=== PATIENT | female | born 1940 | race Caucasian/White ===

== ENCOUNTER → 2017-08-12 | Outpatient (CLI) | payer MEDICARE, OTHER ==
[~2017-08-12] MED LIST: ACET325 PO; ACYC400 PO; ALBU2.5V5 NEB; ALBU3IS INH; ALLO100 PO; ALLO300 PO; AMLO10 PO; ASPI325 PO; ATOR20 PO; ATOR40TA PO; Antivert25 MG PO; BISA10S PR; BUDE.25 NEB; CEPH500 PO; CIPR500 PO; CLON.2 PO; CVS DISPOSABLE399 ML PR; CYCL10 PO; DESITIN CLEAR O99 GM TP; DIAZ5 PO; DOCU100 PO; DULERA 200 MCG/13 GM INH; ENOX40I SC; ESTRTP VAG; Enema133 M1 RC; FERR325 PO; FURO20 PO; FURO40 PO; GABA100 PO; GABA300 PO; GLYCAS PR; HYDACE5 PO; HYDMOR2 PO; IBUP800 PO; IPRAIS NEB; Klor-Con 1010 MEQ PO; LEVFLO500 PO; LEVSOD125 PO; LEVSOD150 PO; LEVSOD175 PO; LISI20 PO; LORA.5 PO; METO10 PO; METO25ER PO; MIRALAX17 GM PO; MORP15ER PO; Milk Of Ma400 MG/5 M PO; Milk Of Ma800 MG/5 M PO; Mucinex1200 MG PO; Neurontin600 MG PO; ONDA4ODT MM; OXYACE5T PO; POTA8 PO; POTCHL20ER PO; PRAV20 PO; PRED10 PO; Pedi-Dri 100,0060 GM TOP; Percocet 5-3251 EACH PO; RXCLIN PO; TRAM50 PO; TRIHYD5075 PO; ZOLP10 PO
[2017-08-12 19:12] LABS: Bilirubin, Urine Neg (Neg); Blood, Urine 1+ (Neg); Glucose Qualitative, Urine Neg (Neg); Ketones, Urine Neg (Neg); Leukocyte Esterase, Urine 2+ (Neg); Nitrite, Urine Neg (Neg); Protein, Urine 3+ (Neg); Urobilinogen, Urine NORM (Normal)
[2017-08-12 19:17] LABS: Appearance, Urine Clear (Clear); Color, Urine Pale Yellow (P-Yellow)
[2017-08-12 19:18] LABS: White Blood Cells, Urine 50-100 /hpf (0-5)
[2017-08-12 19:19] LABS: Bacteria Many /hpf; Squamous Epithelial Cells Few /hpf (Few)
== END | disposition home or self-care (01) ==
LOC: LAB 14:30
PROVIDERS: Family Medicine
DX: N39.0 Urinary tract infection, site not specified (principal)
CPT/HCPCS: 81001; 87077; 87086; 87186

== ENCOUNTER 2017-08-23 20:13 | Inpatient (IN) | payer MEDICARE, OTHER ==
[~2017-08-23] VITALS: Ht 162.6 cm; Wt 108.3 kg
[~2017-08-23 20:13] MED LIST changes: -ALBU2.5V5 NEB; -ATOR20 PO; -BUDE.25 NEB; -DULERA 200 MCG/13 GM INH; -ENOX40I SC; -LEVFLO500 PO; -LORA.5 PO; -METO25ER PO; -MIRALAX17 GM PO; -Mucinex1200 MG PO; -PRED10 PO; -Pedi-Dri 100,0060 GM TOP
[2017-08-23] MEDS ORDERED: POTA8 PO (20:26)
[2017-08-23] MEDS ORDERED: ATOR20 PO (20:37)
[2017-08-23 21:29] LABS: BASOPHILS ABSOLUTE AUTO 0.07 K/mm3 (0.00-0.23); BASOPHILS PERCENT AUTO 0 % (0-2); EOSINOPHILS ABSOLUTE AUTO 0.42 K/mm3 (0.00-0.68); EOSINOPHILS PERCENT AUTO 2 % (0-6); Hematocrit 36.9 % (33.0-51.0); Hemoglobin 11.9 g/dL (11.5-16.0); IMMATURE GRAN ABSOLUTE AUTO 0.14 K/mm3 (0.00-0.10); IMMATURE GRAN PERCENT AUTO 1 % (0-1); LYMPHOCYTES ABSOLUTE AUTO 1.05 K/mm3 (0.84-5.20); LYMPHOCYTES PERCENT AUTO 6 % (21-46); MONOCYTES ABSOLUTE AUTO 1.25 K/mm3 (0.16-1.47); MONOCYTES PERCENT AUTO 7 % (4-13); Mean Corpuscular HGB 28.1 pg (26.0-34.0); Mean Corpuscular HGB Conc 32.2 g/dL (31.5-36.5); Mean Corpuscular Volume 87 fL (80-100); Mean Platelet Volume 10.3 fL (9.1-12.4); NEUTROPHILS ABSOLUTE AUTO 14.43 K/mm3 (1.96-9.15); NEUTROPHILS PERCENT AUTO 83 % (41-73); Platelet Count 247 K/mm3 (150-400); RDW Coefficient Variation 13.7 % (11.7-14.2); RDW Standard Deviation 43.8 fL (35.1-46.3); Red Blood Cell Count 4.24 M/mm3 (3.80-5.20); White Blood Cell Count 17.36 K/mm3 (4.00-11.30)
[2017-08-23 21:49] LABS: Alanine Aminotransfer (ALT/SGP 46 U/L (12-78); Albumin, Blood 2.2 g/dL (3.4-5.0); Albumin/Globulin Ratio 0.6 (0.8-1.8); Alk Phos 74 U/L (50-136); Anion Gap 10 mmol/L (6-16); Aspartate Aminotrans (AST/SGOT 25 U/L (12-37); Bilirubin, Total 0.4 mg/dL (0.1-1.0); Blood Urea Nitrogen 25 mg/dL (8-24); Bun/Creatinine Ratio 25.9 (12.0-20.0); CO2, Blood 23 mmol/L (21-32); Calcium, Blood 7.7 mg/dL (8.5-10.1); Chloride, Blood 96 mmol/L (98-108); Creatinine, Blood 0.97 mg/dL (0.40-1.00); Globulin, Blood 3.6 g/dL (2.2-4.0); Glomerular Filtration Rate 59 (60-); Glucose, Blood 118 mg/dL (70-99); Potassium, Blood 3.7 mmol/L (3.5-5.5); Sodium, Blood 129 mmol/L (136-145); Total Protein, Blood 5.8 g/dL (6.4-8.2); Troponin I <0.015 ng/mL (0.000-0.040)
[2017-08-23 22:40] LABS: Source, Urine Catheter
[2017-08-23 22:48] LABS: Bilirubin, Urine Neg (Neg); Blood, Urine 1+ (Neg); Glucose Qualitative, Urine Neg (Neg); Ketones, Urine Neg (Neg); Leukocyte Esterase, Urine 2+ (Neg); Nitrite, Urine Neg (Neg); Protein, Urine 3+ (Neg); Specific Gravity, Urine 1.015 (1.003-1.022); Urobilinogen, Urine NORM (Normal)
[2017-08-23 23:04] LABS: Appearance, Urine Clear (Clear); Color, Urine Yellow (P-Yellow)
[2017-08-23 23:06] LABS: Bacteria Many /hpf; Hyaline Casts 0-2 /lpf (0-2); Squamous Epithelial Cells Few /hpf (Few)
[2017-08-24 05:18] LABS: BASOPHILS ABSOLUTE AUTO 0.06 K/mm3 (0.00-0.23); BASOPHILS PERCENT AUTO 0 % (0-2); EOSINOPHILS ABSOLUTE AUTO 0.46 K/mm3 (0.00-0.68); EOSINOPHILS PERCENT AUTO 3 % (0-6); Hematocrit 35.1 % (33.0-51.0); Hemoglobin 10.9 g/dL (11.5-16.0); IMMATURE GRAN ABSOLUTE AUTO 0.08 K/mm3 (0.00-0.10); IMMATURE GRAN PERCENT AUTO 1 % (0-1); LYMPHOCYTES ABSOLUTE AUTO 1.89 K/mm3 (0.84-5.20); LYMPHOCYTES PERCENT AUTO 14 % (21-46); MONOCYTES ABSOLUTE AUTO 1.07 K/mm3 (0.16-1.47); MONOCYTES PERCENT AUTO 8 % (4-13); Mean Corpuscular HGB 27.6 pg (26.0-34.0); Mean Corpuscular HGB Conc 31.1 g/dL (31.5-36.5); Mean Corpuscular Volume 89 fL (80-100); NEUTROPHILS ABSOLUTE AUTO 10.41 K/mm3 (1.96-9.15); NEUTROPHILS PERCENT AUTO 75 % (41-73); Platelet Count 233 K/mm3 (150-400); RDW Coefficient Variation 13.6 % (11.7-14.2); RDW Standard Deviation 44.7 fL (35.1-46.3); Red Blood Cell Count 3.95 M/mm3 (3.80-5.20); White Blood Cell Count 13.97 K/mm3 (4.00-11.30)
[2017-08-24 05:56] LABS: Albumin, Blood 1.9 g/dL (3.4-5.0); Albumin/Globulin Ratio 0.5 (0.8-1.8); Bilirubin, Total 0.2 mg/dL (0.1-1.0); Calcium, Blood 7.4 mg/dL (8.5-10.1); Globulin, Blood 3.6 g/dL (2.2-4.0); Total Protein, Blood 5.5 g/dL (6.4-8.2)
[2017-08-24 08:34] LABS: Influenza A Positive (NEGATIVE); Influenza B Positive (NEGATIVE)
[2017-08-27 05:20] LABS: BASOPHILS ABSOLUTE AUTO 0.09 K/mm3 (0.00-0.23); BASOPHILS PERCENT AUTO 1 % (0-2); EOSINOPHILS ABSOLUTE AUTO 0.67 K/mm3 (0.00-0.68); EOSINOPHILS PERCENT AUTO 7 % (0-6); Hematocrit 39.4 % (33.0-51.0); Hemoglobin 11.7 g/dL (11.5-16.0); IMMATURE GRAN ABSOLUTE AUTO 0.21 K/mm3 (0.00-0.10); IMMATURE GRAN PERCENT AUTO 2 % (0-1); LYMPHOCYTES ABSOLUTE AUTO 2.31 K/mm3 (0.84-5.20); LYMPHOCYTES PERCENT AUTO 23 % (21-46); MONOCYTES ABSOLUTE AUTO 0.69 K/mm3 (0.16-1.47); MONOCYTES PERCENT AUTO 7 % (4-13); Mean Corpuscular HGB 27.7 pg (26.0-34.0); Mean Corpuscular HGB Conc 29.7 g/dL (31.5-36.5); Mean Platelet Volume 9.6 fL (9.1-12.4); NEUTROPHILS PERCENT AUTO 61 % (41-73); Platelet Count 360 K/mm3 (150-400); RDW Coefficient Variation 14.5 % (11.7-14.2); RDW Standard Deviation 49.2 fL (35.1-46.3); Red Blood Cell Count 4.23 M/mm3 (3.80-5.20); White Blood Cell Count 10.07 K/mm3 (4.00-11.30)
[2017-08-27 05:21] LABS: Mean Corpuscular Volume 93 fL (80-100)
[2017-08-27 05:44] LABS: Anion Gap 6 mmol/L (6-16); Blood Urea Nitrogen 31 mg/dL (8-24); Bun/Creatinine Ratio 35.9 (12.0-20.0); CO2, Blood 27 mmol/L (21-32); Calcium, Blood 9.6 mg/dL (8.5-10.1); Chloride, Blood 104 mmol/L (98-108); Creatinine, Blood 0.86 mg/dL (0.40-1.00); Glomerular Filtration Rate >60 (60-); Glucose, Blood 93 mg/dL (70-99); Potassium, Blood 5.2 mmol/L (3.5-5.5); Sodium, Blood 137 mmol/L (136-145)
[2017-08-31 06:15] LABS: BASOPHILS ABSOLUTE AUTO 0.03 K/mm3 (0.00-0.23); BASOPHILS PERCENT AUTO 0 % (0-2); EOSINOPHILS ABSOLUTE AUTO 0.07 K/mm3 (0.00-0.68); EOSINOPHILS PERCENT AUTO 0 % (0-6); Hematocrit 39.5 % (33.0-51.0); Hemoglobin 12.2 g/dL (11.5-16.0); IMMATURE GRAN ABSOLUTE AUTO 0.62 K/mm3 (0.00-0.10); IMMATURE GRAN PERCENT AUTO 4 % (0-1); LYMPHOCYTES ABSOLUTE AUTO 2.21 K/mm3 (0.84-5.20); LYMPHOCYTES PERCENT AUTO 13 % (21-46); MONOCYTES ABSOLUTE AUTO 0.82 K/mm3 (0.16-1.47); MONOCYTES PERCENT AUTO 5 % (4-13); Mean Corpuscular HGB 27.3 pg (26.0-34.0); Mean Corpuscular HGB Conc 30.9 g/dL (31.5-36.5); Mean Platelet Volume 9.1 fL (9.1-12.4); NEUTROPHILS ABSOLUTE AUTO 13.99 K/mm3 (1.96-9.15); NEUTROPHILS PERCENT AUTO 79 % (41-73); Platelet Count 423 K/mm3 (150-400); RDW Coefficient Variation 14.1 % (11.7-14.2); RDW Standard Deviation 45.2 fL (35.1-46.3); Red Blood Cell Count 4.47 M/mm3 (3.80-5.20); White Blood Cell Count 17.74 K/mm3 (4.00-11.30)
[2017-08-31 06:18] LABS: Mean Corpuscular Volume 88 fL (80-100)
[2017-08-31 06:28] LABS: Alanine Aminotransfer (ALT/SGP 35 U/L (12-78); Albumin, Blood 2.5 g/dL (3.4-5.0); Albumin/Globulin Ratio 0.8 (0.8-1.8); Alk Phos 70 U/L (50-136); Anion Gap 8 mmol/L (6-16); Aspartate Aminotrans (AST/SGOT 24 U/L (12-37); Bilirubin, Total 0.5 mg/dL (0.1-1.0); Blood Urea Nitrogen 30 mg/dL (8-24); Bun/Creatinine Ratio 41.8 (12.0-20.0); CO2, Blood 30 mmol/L (21-32); Calcium, Blood 9.1 mg/dL (8.5-10.1); Chloride, Blood 100 mmol/L (98-108); Creatinine, Blood 0.72 mg/dL (0.40-1.00); Globulin, Blood 3.3 g/dL (2.2-4.0); Glomerular Filtration Rate >60 (60-); Glucose, Blood 110 mg/dL (70-99); Magnesium, Blood 1.9 mg/dL (1.6-2.4); Phosphorus, Blood 3.6 mg/dL (2.5-4.9); Potassium, Blood 4.1 mmol/L (3.5-5.5); Sodium, Blood 138 mmol/L (136-145); Total Protein, Blood 5.8 g/dL (6.4-8.2)
[2017-08-31] MEDS ORDERED: DOCU100 PO (13:58)
[2017-08-31] MEDS ORDERED: Mucinex1200 MG PO (13:59)
[2017-08-31] MEDS ORDERED: ALBU3IS INH (14:00)
[2017-08-31] MEDS ORDERED: DULERA 200 MCG/13 GM INH (14:03)
[2017-08-31] MEDS ORDERED: METO25ER PO (14:03)
[2017-08-31] MEDS ORDERED: MIRALAX17 GM PO (14:05)
[2017-08-31] MEDS ORDERED: LEVFLO500 PO (14:08)
[2017-08-31] MEDS ORDERED: PRED10 PO (14:08)
== END 2017-08-31 15:12 | disposition home or self-care (01) | DRG 189 ==
LOC: ER 20:13 → MEDS 22:47 → ENPENDDIS 08-31 12:00 → MEDS 08-31 15:12
PROVIDERS: Family Medicine; Hospitalist; Internal Medicine; Nurse Practitioner Family
DX: J96.01 Acute respiratory failure with hypoxia (principal); J10.00 Influenza due to other identified influenza virus with unspecified type of pneumonia; J18.9 Pneumonia, unspecified organism; E11.22 Type 2 diabetes mellitus with diabetic chronic kidney disease; E86.0 Dehydration; E66.2 Morbid (severe) obesity with alveolar hypoventilation; E87.1 Hypo-osmolality and hyponatremia; J44.0 Chronic obstructive pulmonary disease with (acute) lower respiratory infection; Z68.41 Body mass index [BMI] 40.0-44.9, adult; I12.9 Hypertensive chronic kidney disease with stage 1 through stage 4 chronic kidney disease, or unspecified chronic kidney disease; I73.9 Peripheral vascular disease, unspecified; K58.9 Irritable bowel syndrome, unspecified; I16.0 Hypertensive urgency; N18.9 Chronic kidney disease, unspecified; Z79.82 Long term (current) use of aspirin; Z79.84 Long term (current) use of oral hypoglycemic drugs; Z87.891 Personal history of nicotine dependence; Z90.710 Acquired absence of both cervix and uterus
CPT/HCPCS: 36415; 71045; 71046; 80048; 80053; 81001; 83605; 83690; 83735; 83880; 84100; 84484; 85025; 87040; 87086; 87804; 93005; 93010; 94640; 94667; 94760; 96361; 96365; 96366; 96368; 96375; 99285; C9113; J0360; J0456; J0696; J1650; J2405; J7030; J7050

== ENCOUNTER → 2017-10-13 | Outpatient (CLI) | payer MEDICARE, OTHER ==
[~2017-10-13] MED LIST changes: +ATOR20 PO; +DULERA 200 MCG/13 GM INH; +LEVFLO500 PO; +METO25ER PO; +MIRALAX17 GM PO; +Mucinex1200 MG PO; +PRED10 PO
== END ==
LOC: LAB SHORT 17:49 → LAB 17:49
DX: R82.90 Unspecified abnormal findings in urine (principal)
CPT/HCPCS: 87077; 87086; 87186

== ENCOUNTER 2018-02-10 03:10 | Inpatient (IN) | payer MEDICARE, OTHER ==
[~2018-02-10] VITALS: Ht 160 cm; Wt 117.3 kg
[2018-02-10 03:27] LABS: Base Excess Venous -3.8 mmol/L; Bicarbonate Venous 21.2 mmol/L (24.0-30.0); PCO2 Venous 43.1 mmHg (38-42); PO2 Venous 62.2 mmHg (38-42); pH Blood Venous 7.32 (7.34-7.37)
[2018-02-10 03:55] LABS: BASOPHILS ABSOLUTE AUTO 0.05 K/mm3 (0.00-0.23); BASOPHILS PERCENT AUTO 0 % (0-2); EOSINOPHILS ABSOLUTE AUTO 0.16 K/mm3 (0.00-0.68); EOSINOPHILS PERCENT AUTO 1 % (0-6); Hematocrit 37.3 % (33.0-51.0); Hemoglobin 11.4 g/dL (11.5-16.0); IMMATURE GRAN ABSOLUTE AUTO 0.17 K/mm3 (0.00-0.10); IMMATURE GRAN PERCENT AUTO 1 % (0-1); LYMPHOCYTES ABSOLUTE AUTO 1.67 K/mm3 (0.84-5.20); LYMPHOCYTES PERCENT AUTO 8 % (21-46); MONOCYTES PERCENT AUTO 4 % (4-13); Mean Corpuscular HGB 28.5 pg (26.0-34.0); Mean Corpuscular HGB Conc 30.6 g/dL (31.5-36.5); Mean Corpuscular Volume 93 fL (80-100); Mean Platelet Volume 9.9 fL (9.1-12.4); NEUTROPHILS ABSOLUTE AUTO 17.32 K/mm3 (1.96-9.15); NEUTROPHILS PERCENT AUTO 86 % (41-73); Platelet Count 248 K/mm3 (150-400); RDW Coefficient Variation 13.5 % (11.7-14.2); RDW Standard Deviation 46.2 fL (35.1-46.3); White Blood Cell Count 20.17 K/mm3 (4.00-11.30)
[2018-02-10 03:59] LABS: Source, Urine Catheter
[2018-02-10 04:01] LABS: Blood, Urine 4+ (Neg); Glucose Qualitative, Urine Neg (Neg); Ketones, Urine Neg (Neg); Leukocyte Esterase, Urine 3+ (Neg); Nitrite, Urine Pos (Neg); Protein, Urine 3+ (Neg); Specific Gravity, Urine 1.025 (1.003-1.022); Urobilinogen, Urine NORM (Normal)
[2018-02-10 04:07] LABS: Appearance, Urine Cloudy (Clear); Bilirubin, Urine 1+ (Neg); Color, Urine Amber (P-Yellow)
[2018-02-10 04:08] LABS: Bacteria Many /hpf; Red Blood Cells, Urine 0-2 /hpf (0-2); Squamous Epithelial Cells Few /hpf (Few); White Blood Cells, Urine 50-100 /hpf (0-5)
[2018-02-10 04:18] LABS: Salicylate 2.8 mg/dL (2.8-20.0)
[2018-02-10 04:21] LABS: Albumin, Blood 2.8 g/dL (3.4-5.0); Albumin/Globulin Ratio 0.7 (0.8-1.8); Bilirubin, Total 0.2 mg/dL (0.1-1.0); Bun/Creatinine Ratio 20.3 (12.0-20.0); Calcium, Blood 8.3 mg/dL (8.5-10.1); Creatinine, Blood 2.27 mg/dL (0.40-1.00); Globulin, Blood 3.9 g/dL (2.2-4.0); Potassium, Blood 6.3 mmol/L (3.5-5.5); Total Protein, Blood 6.7 g/dL (6.4-8.2)
[2018-02-10 04:22] LABS: Thyroid Stimulating Hormone 0.368 uIU/mL (0.360-4.800)
[2018-02-10 05:08] LABS: International Normalized Ratio 1.11; Prothrombin Time Results 11.4 Sec (9.7-11.5)
[2018-02-10 05:21] LABS: PO2 Arterial 90.9 mmHg (80-100); pH Blood Arterial 7.23 (7.35-7.45)
[2018-02-10 07:02] LABS: Bun/Creatinine Ratio 19.7 (12.0-20.0); Calcium, Blood 8.4 mg/dL (8.5-10.1); Creatinine, Blood 2.33 mg/dL (0.40-1.00); Potassium, Blood 4.4 mmol/L (3.5-5.5)
[2018-02-10 07:53] LABS: U Amphetamine Screen Not Detected; U Barbituate Screen Not Detected; U Benzodiazapine Screen Not Detected; U Buprenorphine Screen Not Detected; U Cannabinoids Screen Not Detected; U Cocaine Screen Not Detected; U Methadone Screen Not Detected; U Methamphetamine Screen Not Detected; U Opiates Screen Not Detected; U Oxycodone Screen Not Detected; U Phencyclidine Screen Not Detected; U Propoxyphene Screen Not Detected
[2018-02-10 08:16] LABS: PCO2 Arterial 72.7 mmHg (35-45); pH Blood Arterial 7.14 (7.35-7.45)
[2018-02-10 08:17] LABS: PO2 Arterial 69.5 mmHg (80-100)
[2018-02-10 09:32] LABS: Bun/Creatinine Ratio 19.9 (12.0-20.0); Calcium, Blood 8.3 mg/dL (8.5-10.1); Creatinine, Blood 2.21 mg/dL (0.40-1.00); Potassium, Blood 5.2 mmol/L (3.5-5.5)
[2018-02-10 10:13] LABS: PCO2 Arterial 62.6 mmHg (35-45); PO2 Arterial 85.8 mmHg (80-100); pH Blood Arterial 7.16 (7.35-7.45)
[2018-02-11 04:14] LABS: Hematocrit 28.2 % (33.0-51.0); Hemoglobin 8.7 g/dL (11.5-16.0); Mean Corpuscular HGB 28.6 pg (26.0-34.0); Mean Corpuscular HGB Conc 30.9 g/dL (31.5-36.5); Mean Corpuscular Volume 93 fL (80-100); Mean Platelet Volume 9.8 fL (9.1-12.4); Platelet Count 181 K/mm3 (150-400); RDW Coefficient Variation 13.5 % (11.7-14.2); RDW Standard Deviation 46.1 fL (35.1-46.3); Red Blood Cell Count 3.04 M/mm3 (3.80-5.20); White Blood Cell Count 11.32 K/mm3 (4.00-11.30)
[2018-02-11 04:33] LABS: Alanine Aminotransfer (ALT/SGP 26 U/L (12-78); Albumin, Blood 2.1 g/dL (3.4-5.0); Albumin/Globulin Ratio 0.7 (0.8-1.8); Alk Phos 47 U/L (50-136); Anion Gap 6 mmol/L (6-16); Aspartate Aminotrans (AST/SGOT 85 U/L (12-37); Bilirubin, Total 0.2 mg/dL (0.1-1.0); Blood Urea Nitrogen 39 mg/dL (8-24); Bun/Creatinine Ratio 25.8 (12.0-20.0); CO2, Blood 24 mmol/L (21-32); Calcium, Blood 7.5 mg/dL (8.5-10.1); Chloride, Blood 104 mmol/L (98-108); Creatinine, Blood 1.51 mg/dL (0.40-1.00); Glomerular Filtration Rate 35 (60-); Glucose, Blood 106 mg/dL (70-99); Magnesium, Blood 2.1 mg/dL (1.6-2.4); Phosphorus, Blood 3.6 mg/dL (2.5-4.9); Potassium, Blood 4.9 mmol/L (3.5-5.5); Sodium, Blood 134 mmol/L (136-145); Total Protein, Blood 5.1 g/dL (6.4-8.2); Vancomycin, Random 13.1 ug/mL
[2018-02-11 04:46] LABS: PCO2 Arterial 49.7 mmHg (35-45); PO2 Arterial 80.4 mmHg (80-100)
[2018-02-11 20:38] LABS: PCO2 Arterial 46 mmHg (35-45); PO2 Arterial 91 mmHg (80-100); pH Blood Arterial 7.34 (7.35-7.45)
[2018-02-12 03:47] LABS: BASOPHILS ABSOLUTE AUTO 0.03 K/mm3 (0.00-0.23); BASOPHILS PERCENT AUTO 0 % (0-2); EOSINOPHILS ABSOLUTE AUTO 0.29 K/mm3 (0.00-0.68); EOSINOPHILS PERCENT AUTO 4 % (0-6); Hematocrit 28.1 % (33.0-51.0); Hemoglobin 8.7 g/dL (11.5-16.0); IMMATURE GRAN ABSOLUTE AUTO 0.03 K/mm3 (0.00-0.10); IMMATURE GRAN PERCENT AUTO 0 % (0-1); LYMPHOCYTES ABSOLUTE AUTO 1.25 K/mm3 (0.84-5.20); LYMPHOCYTES PERCENT AUTO 15 % (21-46); MONOCYTES ABSOLUTE AUTO 0.64 K/mm3 (0.16-1.47); MONOCYTES PERCENT AUTO 8 % (4-13); Mean Corpuscular HGB 28.7 pg (26.0-34.0); Mean Corpuscular Volume 93 fL (80-100); NEUTROPHILS ABSOLUTE AUTO 5.96 K/mm3 (1.96-9.15); NEUTROPHILS PERCENT AUTO 73 % (41-73); Platelet Count 186 K/mm3 (150-400); RDW Coefficient Variation 13.5 % (11.7-14.2); RDW Standard Deviation 45.8 fL (35.1-46.3); Red Blood Cell Count 3.03 M/mm3 (3.80-5.20)
[2018-02-12 04:04] LABS: Anion Gap 4 mmol/L (6-16); Blood Urea Nitrogen 27 mg/dL (8-24); Bun/Creatinine Ratio 29.8 (12.0-20.0); CO2, Blood 26 mmol/L (21-32); Calcium, Blood 7.7 mg/dL (8.5-10.1); Chloride, Blood 111 mmol/L (98-108); Creatinine, Blood 0.91 mg/dL (0.40-1.00); Glomerular Filtration Rate >60 (60-); Glucose, Blood 82 mg/dL (70-99); Potassium, Blood 4.7 mmol/L (3.5-5.5); Sodium, Blood 141 mmol/L (136-145); Vancomycin, Random 16.1 ug/mL
[2018-02-12 04:33] LABS: PCO2 Arterial 51.5 mmHg (35-45); PO2 Arterial 97.8 mmHg (80-100); pH Blood Arterial 7.31 (7.35-7.45)
[2018-02-13 03:42] LABS: Anion Gap 5 mmol/L (6-16); Blood Urea Nitrogen 21 mg/dL (8-24); Bun/Creatinine Ratio 23.9 (12.0-20.0); CO2, Blood 26 mmol/L (21-32); Calcium, Blood 8.1 mg/dL (8.5-10.1); Chloride, Blood 113 mmol/L (98-108); Creatinine, Blood 0.88 mg/dL (0.40-1.00); Glomerular Filtration Rate >60 (60-); Glucose, Blood 98 mg/dL (70-99); Potassium, Blood 4.4 mmol/L (3.5-5.5); Sodium, Blood 144 mmol/L (136-145)
[2018-02-13 04:23] LABS: PCO2 Arterial 45.5 mmHg (35-45); PO2 Arterial 97.5 mmHg (80-100); pH Blood Arterial 7.34 (7.35-7.45)
[2018-02-16 05:44] LABS: BASOPHILS ABSOLUTE AUTO 0.02 K/mm3 (0.00-0.23); BASOPHILS PERCENT AUTO 0 % (0-2); EOSINOPHILS PERCENT AUTO 0 % (0-6); Hematocrit 30.3 % (33.0-51.0); Hemoglobin 9.5 g/dL (11.5-16.0); IMMATURE GRAN ABSOLUTE AUTO 0.55 K/mm3 (0.00-0.10); IMMATURE GRAN PERCENT AUTO 4 % (0-1); LYMPHOCYTES ABSOLUTE AUTO 1.03 K/mm3 (0.84-5.20); LYMPHOCYTES PERCENT AUTO 8 % (21-46); MONOCYTES ABSOLUTE AUTO 0.31 K/mm3 (0.16-1.47); MONOCYTES PERCENT AUTO 3 % (4-13); Mean Corpuscular HGB 28.4 pg (26.0-34.0); Mean Corpuscular HGB Conc 31.4 g/dL (31.5-36.5); Mean Corpuscular Volume 91 fL (80-100); Mean Platelet Volume 9.8 fL (9.1-12.4); NEUTROPHILS PERCENT AUTO 85 % (41-73); Platelet Count 312 K/mm3 (150-400); RDW Coefficient Variation 13.7 % (11.7-14.2); RDW Standard Deviation 45.6 fL (35.1-46.3); Red Blood Cell Count 3.34 M/mm3 (3.80-5.20); White Blood Cell Count 12.61 K/mm3 (4.00-11.30)
[2018-02-16 06:16] LABS: Albumin, Blood 2.5 g/dL (3.4-5.0); Albumin/Globulin Ratio 0.7 (0.8-1.8); Bilirubin, Total 0.4 mg/dL (0.1-1.0); Bun/Creatinine Ratio 25.7 (12.0-20.0); Calcium, Blood 7.4 mg/dL (8.5-10.1); Creatinine, Blood 1.13 mg/dL (0.40-1.00); Globulin, Blood 3.4 g/dL (2.2-4.0); Potassium, Blood 5.2 mmol/L (3.5-5.5); Total Protein, Blood 5.9 g/dL (6.4-8.2)
[2018-02-17 06:15] LABS: Hematocrit 31.2 % (33.0-51.0); Hemoglobin 9.7 g/dL (11.5-16.0); Mean Corpuscular HGB 28.6 pg (26.0-34.0); Mean Corpuscular HGB Conc 31.1 g/dL (31.5-36.5); Mean Corpuscular Volume 92 fL (80-100); Mean Platelet Volume 9.6 fL (9.1-12.4); Platelet Count 352 K/mm3 (150-400); RDW Coefficient Variation 14.1 % (11.7-14.2); RDW Standard Deviation 47.5 fL (35.1-46.3); Red Blood Cell Count 3.39 M/mm3 (3.80-5.20); White Blood Cell Count 16.11 K/mm3 (4.00-11.30)
[2018-02-17 06:41] LABS: Albumin, Blood 2.4 g/dL (3.4-5.0); Albumin/Globulin Ratio 0.8 (0.8-1.8); Bilirubin, Total 0.1 mg/dL (0.1-1.0); Bun/Creatinine Ratio 30.2 (12.0-20.0); Calcium, Blood 7.4 mg/dL (8.5-10.1); Creatinine, Blood 0.99 mg/dL (0.40-1.00); Potassium, Blood 4.9 mmol/L (3.5-5.5); Total Protein, Blood 5.4 g/dL (6.4-8.2)
[2018-02-17 07:06] LABS: BASOPHILS PERCENT MAN 0 % (0-2); EOSINOPHILS PERCENT MAN 0 % (0-6); LYMPHOCYTES ABSOLUTE MAN 2.57 K/mm3 (0.84-5.20); LYMPHOCYTES PERCENT MAN 16 % (21-46); METAMYELOCYTE ABSOLUTE MAN 0.16 K/mm3 (0.00-0.00); METAMYELOCYTE PERCENT MAN 1 % (0-0); MONOCYTES ABSOLUTE MAN 0.96 K/mm3 (0.16-1.47); MONOCYTES PERCENT MAN 6 % (4-13); MYELOCYTE ABSOLUTE MAN 0.16 K/mm3 (0.00-0.00); MYELOCYTE PERCENT MAN 1 % (0-0); NEUTROPHILS ABSOLUTE MAN 12.24 K/mm3 (1.96-9.15); SEG NEUTROPHILS PERCENT MAN 76 % (41-73); TOTAL CELLS COUNTED 100
[2018-02-17 15:25] LABS: Source, Urine Catheter
[2018-02-17 15:35] LABS: Bilirubin, Urine Neg (Neg); Blood, Urine 1+ (Neg); Glucose Qualitative, Urine Neg (Neg); Ketones, Urine Neg (Neg); Leukocyte Esterase, Urine Neg (Neg); Nitrite, Urine Neg (Neg); Protein, Urine 3+ (Neg); Urobilinogen, Urine NORM (Normal); pH, Urine 6.5 (5.0-8.0)
[2018-02-17 15:45] LABS: Appearance, Urine Clear (Clear); Color, Urine Yellow (P-Yellow)
[2018-02-17 15:47] LABS: Bacteria Few /hpf; Granular Casts 0-2 /lpf (0); Red Blood Cells, Urine 0-2 /hpf (0-2); Squamous Epithelial Cells Few /hpf (Few)
[2018-02-18 05:39] LABS: Hematocrit 33.6 % (33.0-51.0); Hemoglobin 10.2 g/dL (11.5-16.0); Mean Corpuscular HGB 27.5 pg (26.0-34.0); Mean Corpuscular HGB Conc 30.4 g/dL (31.5-36.5); Mean Corpuscular Volume 91 fL (80-100); Mean Platelet Volume 9.9 fL (9.1-12.4); Platelet Count 424 K/mm3 (150-400); RDW Coefficient Variation 14.2 % (11.7-14.2); Red Blood Cell Count 3.71 M/mm3 (3.80-5.20); White Blood Cell Count 16.84 K/mm3 (4.00-11.30)
[2018-02-18 05:56] LABS: Albumin, Blood 2.5 g/dL (3.4-5.0); Albumin/Globulin Ratio 0.8 (0.8-1.8); Bilirubin, Total 0.2 mg/dL (0.1-1.0); Bun/Creatinine Ratio 25.3 (12.0-20.0); Calcium, Blood 7.4 mg/dL (8.5-10.1); Creatinine, Blood 0.99 mg/dL (0.40-1.00); Globulin, Blood 3.2 g/dL (2.2-4.0); Potassium, Blood 4.4 mmol/L (3.5-5.5); Total Protein, Blood 5.7 g/dL (6.4-8.2)
[2018-02-18 06:02] LABS: BAND PERCENT MAN 1 % (0-8); BASOPHILS PERCENT MAN 0 % (0-2); EOSINOPHILS PERCENT MAN 0 % (0-6); LYMPHOCYTES ABSOLUTE MAN 2.02 K/mm3 (0.84-5.20); LYMPHOCYTES PERCENT MAN 12 % (21-46); MONOCYTES ABSOLUTE MAN 0.16 K/mm3 (0.16-1.47); MONOCYTES PERCENT MAN 1 % (4-13); MYELOCYTE ABSOLUTE MAN 0.33 K/mm3 (0.00-0.00); MYELOCYTE PERCENT MAN 2 % (0-0); NEUTROPHILS ABSOLUTE MAN 14.31 K/mm3 (1.96-9.15); SEG NEUTROPHILS PERCENT MAN 84 % (41-73); TOTAL CELLS COUNTED 100
[2018-02-19 05:30] LABS: BASOPHILS ABSOLUTE AUTO 0.03 K/mm3 (0.00-0.23); BASOPHILS PERCENT AUTO 0 % (0-2); EOSINOPHILS ABSOLUTE AUTO 0.04 K/mm3 (0.00-0.68); EOSINOPHILS PERCENT AUTO 0 % (0-6); Hematocrit 33.1 % (33.0-51.0); Hemoglobin 10.6 g/dL (11.5-16.0); IMMATURE GRAN ABSOLUTE AUTO 0.71 K/mm3 (0.00-0.10); IMMATURE GRAN PERCENT AUTO 5 % (0-1); LYMPHOCYTES ABSOLUTE AUTO 2.82 K/mm3 (0.84-5.20); LYMPHOCYTES PERCENT AUTO 20 % (21-46); MONOCYTES ABSOLUTE AUTO 0.84 K/mm3 (0.16-1.47); MONOCYTES PERCENT AUTO 6 % (4-13); Mean Corpuscular Volume 90 fL (80-100); NEUTROPHILS ABSOLUTE AUTO 9.64 K/mm3 (1.96-9.15); NEUTROPHILS PERCENT AUTO 69 % (41-73); Platelet Count 182 K/mm3 (150-400); RDW Standard Deviation 49.2 fL (35.1-46.3); Red Blood Cell Count 3.66 M/mm3 (3.80-5.20); White Blood Cell Count 14.08 K/mm3 (4.00-11.30)
[2018-02-20 05:58] LABS: BASOPHILS ABSOLUTE AUTO 0.04 K/mm3 (0.00-0.23); BASOPHILS PERCENT AUTO 0 % (0-2); EOSINOPHILS ABSOLUTE AUTO 0.02 K/mm3 (0.00-0.68); EOSINOPHILS PERCENT AUTO 0 % (0-6); Hematocrit 34.8 % (33.0-51.0); Hemoglobin 10.9 g/dL (11.5-16.0); IMMATURE GRAN ABSOLUTE AUTO 0.63 K/mm3 (0.00-0.10); IMMATURE GRAN PERCENT AUTO 4 % (0-1); LYMPHOCYTES ABSOLUTE AUTO 2.17 K/mm3 (0.84-5.20); LYMPHOCYTES PERCENT AUTO 14 % (21-46); MONOCYTES ABSOLUTE AUTO 0.78 K/mm3 (0.16-1.47); MONOCYTES PERCENT AUTO 5 % (4-13); Mean Corpuscular HGB 28.7 pg (26.0-34.0); Mean Corpuscular HGB Conc 31.3 g/dL (31.5-36.5); Mean Corpuscular Volume 92 fL (80-100); Mean Platelet Volume 9.4 fL (9.1-12.4); NEUTROPHILS ABSOLUTE AUTO 12.28 K/mm3 (1.96-9.15); NEUTROPHILS PERCENT AUTO 77 % (41-73); Platelet Count 355 K/mm3 (150-400); RDW Coefficient Variation 14.2 % (11.7-14.2); RDW Standard Deviation 47.1 fL (35.1-46.3); White Blood Cell Count 15.92 K/mm3 (4.00-11.30)
[2018-02-21] MEDS ORDERED: ACET325 PO (13:29)
[2018-02-21] MEDS ORDERED: ALBU2.5V5 NEB (13:30)
[2018-02-21] MEDS ORDERED: AMLO10 PO (13:31)
[2018-02-21] MEDS ORDERED: BISA10S PR (13:32)
[2018-02-21] MEDS ORDERED: BUDE.25 NEB (13:33)
[2018-02-21] MEDS ORDERED: DOCU100 PO (13:33)
[2018-02-21] MEDS ORDERED: ENOX40I SC (13:34)
[2018-02-21] MEDS ORDERED: ALBU3IS INH (13:36)
[2018-02-21] MEDS ORDERED: LORA.5 PO (13:37)
[2018-02-21] MEDS ORDERED: Pedi-Dri 100,0060 GM TOP (13:37)
[2018-02-21] MEDS ORDERED: MIRALAX17 GM PO (13:38)
[2018-02-21] MEDS ORDERED: PRED10 PO (13:41)
== END 2018-02-21 15:03 | DRG 871 ==
LOC: ER 03:10 → ICUE 04:00 → ICUW 05:17 → ICUE 06:04 → PCU 02-13 18:22 → MEDS 02-18 17:49 → ENPENDDIS 02-21 12:52 → MEDS 02-21 15:03
PROVIDERS: Emergency Medicine; Internal Medicine; Internal Medicine Critical Care Medicine; Internal Medicine Endocrinology, Diabetes & Metabolism; Student in an Organized Health Care Education/Training Program
PROC: 02HV33Z Insertion of Infusion Device into Superior Vena Cava, Percutaneous Approach (ICD-10-PCS; principal; 2018-02-10)
PROC: B548ZZA Ultrasonography of Superior Vena Cava, Guidance (ICD-10-PCS; 2018-02-10)
DX: A41.9 Sepsis, unspecified organism (principal); R65.21 Severe sepsis with septic shock; J96.02 Acute respiratory failure with hypercapnia; G93.41 Metabolic encephalopathy; N17.9 Acute kidney failure, unspecified; J44.1 Chronic obstructive pulmonary disease with (acute) exacerbation; E87.1 Hypo-osmolality and hyponatremia; I10 Essential (primary) hypertension; K21.9 Gastro-esophageal reflux disease without esophagitis; E03.9 Hypothyroidism, unspecified; E11.40 Type 2 diabetes mellitus with diabetic neuropathy, unspecified; E66.01 Morbid (severe) obesity due to excess calories; E78.5 Hyperlipidemia, unspecified; E11.51 Type 2 diabetes mellitus with diabetic peripheral angiopathy without gangrene; E86.0 Dehydration; E87.5 Hyperkalemia; B37.2 Candidiasis of skin and nail; Z68.37 Body mass index [BMI] 37.0-37.9, adult
CPT/HCPCS: 36556; 36600; 71045; 76770; 80048; 80053; 80202; 81001; 82330; 82533; 82803; 82947; 83605; 83735; 83880; 84100; 84443; 85025; 85027; 85610; 85730; 87040; 87070; 87077; 87086; 87186; 87205; 93005; 93010; 94640; 94660; 94667; 94760; 94762; 96365; 96375; 97110; 97162; 97166; 97530; 97535; 99285-25; C1751; C9113; G0480; G8978; G8979; G8987; G8988; J0290; J0360; J0610; J0692; J1650; J1815; J1940; J2310; J2405; J2543; J2550; J2920; J3010; J3370; J7030; J7050; J7060; J7120

== ENCOUNTER → 2018-07-08 | Outpatient (CLI) | payer MEDICARE, OTHER ==
[~2018-07-08] MED LIST changes: +ALBU2.5V5 NEB; +BUDE.25 NEB; +ENOX40I SC; +LORA.5 PO; +Pedi-Dri 100,0060 GM TOP; +Prednisone20 MG PO
== END | disposition home or self-care (01) ==
LOC: LAB 14:20 → LAB SHORT 14:20
DX: N39.0 Urinary tract infection, site not specified (principal); R79.1 Abnormal coagulation profile
CPT/HCPCS: 87077; 87086; 87186

== ENCOUNTER 2018-08-04 13:01 | Emergency (ER) | payer MEDICARE, OTHER ==
[~2018-08-04] VITALS: Ht 162.6 cm; Wt 136.1 kg
[~2018-08-04 13:01] MED LIST changes: -Prednisone20 MG PO
[2018-08-04 13:39] LABS: BASOPHILS ABSOLUTE AUTO 0.08 K/mm3 (0.00-0.23); BASOPHILS PERCENT AUTO 1 % (0-2); EOSINOPHILS ABSOLUTE AUTO 0.39 K/mm3 (0.00-0.68); EOSINOPHILS PERCENT AUTO 3 % (0-6); Hematocrit 38.9 % (33.0-51.0); Hemoglobin 11.7 g/dL (11.5-16.0); IMMATURE GRAN ABSOLUTE AUTO 0.15 K/mm3 (0.00-0.10); IMMATURE GRAN PERCENT AUTO 1 % (0-1); LYMPHOCYTES ABSOLUTE AUTO 3.32 K/mm3 (0.84-5.20); LYMPHOCYTES PERCENT AUTO 24 % (21-46); MONOCYTES ABSOLUTE AUTO 0.75 K/mm3 (0.16-1.47); MONOCYTES PERCENT AUTO 5 % (4-13); Mean Corpuscular HGB 27.5 pg (26.0-34.0); Mean Corpuscular HGB Conc 30.1 g/dL (31.5-36.5); Mean Corpuscular Volume 91 fL (80-100); Mean Platelet Volume 10.2 fL (9.1-12.4); NEUTROPHILS ABSOLUTE AUTO 9.28 K/mm3 (1.96-9.15); NEUTROPHILS PERCENT AUTO 66 % (41-73); Platelet Count 253 K/mm3 (150-400); RDW Coefficient Variation 13.8 % (11.7-14.2); RDW Standard Deviation 45.8 fL (35.1-46.3); Red Blood Cell Count 4.26 M/mm3 (3.80-5.20); White Blood Cell Count 13.97 K/mm3 (4.00-11.30)
[2018-08-04 14:05] LABS: Alanine Aminotransfer (ALT/SGP 20 U/L (12-78); Albumin, Blood 3.2 g/dL (3.4-5.0); Albumin/Globulin Ratio 0.9 (0.8-1.8); Alk Phos 75 U/L (50-136); Anion Gap 9 mmol/L (6-16); Aspartate Aminotrans (AST/SGOT 10 U/L (12-37); Bilirubin, Total 0.2 mg/dL (0.1-1.0); Blood Urea Nitrogen 36 mg/dL (8-24); Bun/Creatinine Ratio 31.9 (12.0-20.0); CO2, Blood 25 mmol/L (21-32); Calcium, Blood 10.5 mg/dL (8.5-10.1); Chloride, Blood 108 mmol/L (98-108); Creatinine, Blood 1.13 mg/dL (0.40-1.00); Globulin, Blood 3.7 g/dL (2.2-4.0); Glomerular Filtration Rate 49 (60-); Glucose, Blood 92 mg/dL (70-99); Potassium, Blood 4.6 mmol/L (3.5-5.5); Sodium, Blood 142 mmol/L (136-145); Total Protein, Blood 6.9 g/dL (6.4-8.2); Troponin I <0.015 ng/mL (0.000-0.040)
[2018-08-04 14:41] LABS: Source, Urine Catheter
[2018-08-04 14:45] LABS: Base Excess Venous -1.7 mmol/L; Bicarbonate Venous 22.5 mmol/L (24.0-30.0); PCO2 Venous 52.3 mmHg (38-42); PO2 Venous 70.3 mmHg (38-42); pH Blood Venous 7.29 (7.34-7.37)
[2018-08-04 15:13] LABS: Appearance, Urine Hazy (Clear); Bilirubin, Urine Neg (Neg); Blood, Urine 2+ (Neg); Color, Urine Yellow (P-Yellow); Glucose Qualitative, Urine Neg (Neg); Ketones, Urine Neg (Neg); Leukocyte Esterase, Urine 1+ (Neg); Nitrite, Urine Neg (Neg); Protein, Urine 4+ (Neg); Specific Gravity, Urine 1.015 (1.003-1.022); Urobilinogen, Urine NORM (Normal)
[2018-08-04 15:39] LABS: Amorphous Mod (0-Heavy)
[2018-08-04 15:42] LABS: Bacteria Few /hpf; Squamous Epithelial Cells Not Seen /hpf (Few)
[2018-08-04] MEDS ORDERED: Prednisone20 MG PO (16:03)
== END 2018-08-04 16:40 | disposition home or self-care (01) ==
LOC: ER 13:01
PROVIDERS: Emergency Medicine
DX: J44.1 Chronic obstructive pulmonary disease with (acute) exacerbation (principal); N39.0 Urinary tract infection, site not specified; E66.9 Obesity, unspecified; I10 Essential (primary) hypertension; E11.9 Type 2 diabetes mellitus without complications; Z88.2 Allergy status to sulfonamides; Z88.5 Allergy status to narcotic agent; Z88.8 Allergy status to other drugs, medicaments and biological substances; Z79.899 Other long term (current) drug therapy; Z79.82 Long term (current) use of aspirin; Z79.51 Long term (current) use of inhaled steroids; Z87.891 Personal history of nicotine dependence; Z68.43 Body mass index [BMI] 50.0-59.9, adult
CPT/HCPCS: 36415; 51702; 71046; 80053; 81001; 82803; 83880; 84484; 85025; 93005; 93010; 96365-59; 96375-59; 99284-25; J2930; J3475; J7030

== ENCOUNTER 2018-08-05 17:12 | Inpatient (IN) | payer MEDICARE, OTHER ==
[~2018-08-05] VITALS: Ht 160 cm; Wt 118.5 kg
[~2018-08-05 17:12] MED LIST changes: +Prednisone20 MG PO
[2018-08-05 18:03] LABS: BASOPHILS ABSOLUTE AUTO 0.05 K/mm3 (0.00-0.23); BASOPHILS PERCENT AUTO 0 % (0-2); EOSINOPHILS PERCENT AUTO 0 % (0-6); Hemoglobin 11.4 g/dL (11.5-16.0); IMMATURE GRAN PERCENT AUTO 4 % (0-1); LYMPHOCYTES ABSOLUTE AUTO 1.89 K/mm3 (0.84-5.20); LYMPHOCYTES PERCENT AUTO 9 % (21-46); MONOCYTES ABSOLUTE AUTO 0.98 K/mm3 (0.16-1.47); MONOCYTES PERCENT AUTO 5 % (4-13); Mean Corpuscular HGB 27.7 pg (26.0-34.0); Mean Corpuscular HGB Conc 30.8 g/dL (31.5-36.5); Mean Corpuscular Volume 90 fL (80-100); Mean Platelet Volume 10.5 fL (9.1-12.4); NEUTROPHILS ABSOLUTE AUTO 17.42 K/mm3 (1.96-9.15); NEUTROPHILS PERCENT AUTO 82 % (41-73); Platelet Count 303 K/mm3 (150-400); RDW Coefficient Variation 13.9 % (11.7-14.2); RDW Standard Deviation 44.9 fL (35.1-46.3); Red Blood Cell Count 4.12 M/mm3 (3.80-5.20); White Blood Cell Count 21.24 K/mm3 (4.00-11.30)
[2018-08-05 18:28] LABS: Albumin, Blood 3.2 g/dL (3.4-5.0); Albumin/Globulin Ratio 0.9 (0.8-1.8); Bilirubin, Total 0.1 mg/dL (0.1-1.0); Bun/Creatinine Ratio 39.8 (12.0-20.0); Calcium, Blood 9.9 mg/dL (8.5-10.1); Creatinine, Blood 1.23 mg/dL (0.40-1.00); Globulin, Blood 3.6 g/dL (2.2-4.0); Potassium, Blood 5.1 mmol/L (3.5-5.5); Total Protein, Blood 6.8 g/dL (6.4-8.2); Troponin I 0.035 ng/mL (0.000-0.040)
[2018-08-05 22:58] LABS: International Normalized Ratio 0.93; Prothrombin Time Results 9.6 Sec (9.7-11.5)
--- NOTE | 2018-08-06 01:50 | NUR ---
PT ARRIVAL. PT ARRIVED ON UNIT AT 0133 VIA GURNEY. PT IS ADMITTED DUE TO NSTEMI. PT WAS ABLE TO MOVE HERSELF UP IN THE BED, HOWEVER AFTER THIS ACTIVITY PT COMPLAINED OF CHEST PAIN THAT WAS 10/10. AFTER PT RELAXED AND CALMED DOWN THE CHEST PAIN DROPPED TO A 7/10, PT WAS THEN MEDICATED PER EMAR WITH GOOD RESULTS. TELE WAS PLACED, SNR IN THE 70'S PER MEMORIAL ADVISER. PT'S BP WAS 176/91. 1+EDEMA NOTED TO THE PT'S BLE. PT'S L/S COARSE AND TIGHT T/O, PT IS RA DURING THE DAY BUT IS SUPPOSED TO WEAR 2L AT NIGHT, HOWERVER PT DOES NOT DUE TO HOME SITUATION, THE PT STATES HER DAUGHTER IS: "AFRAID THE CONCENTRATOR WILL BLOW THE SOCKET AND BLOW UP THE HOUSE SO I CAN'T USE IT." BT PRESENT AND HYPERACTIVE, ABD IS SOFT AND NONTENDER TO PALP. PT HAS CHRONIC MANNING FOR 4 YEARS. PT HAS BEEN NPO SINCE ADMIT EXCEPT FOR A LITTLE WATER W/MEDS. CALL LIGHT IN REACH, BED IS LOCKED AND LOW WILL CONTINUE TO MONITOR.
[2018-08-06 04:01] LABS: BASOPHILS ABSOLUTE AUTO 0.03 K/mm3 (0.00-0.23); BASOPHILS PERCENT AUTO 0 % (0-2); EOSINOPHILS ABSOLUTE AUTO 0.05 K/mm3 (0.00-0.68); EOSINOPHILS PERCENT AUTO 0 % (0-6); Hemoglobin 10.3 g/dL (11.5-16.0); IMMATURE GRAN ABSOLUTE AUTO 0.24 K/mm3 (0.00-0.10); IMMATURE GRAN PERCENT AUTO 1 % (0-1); LYMPHOCYTES ABSOLUTE AUTO 3.07 K/mm3 (0.84-5.20); LYMPHOCYTES PERCENT AUTO 18 % (21-46); MONOCYTES ABSOLUTE AUTO 0.91 K/mm3 (0.16-1.47); MONOCYTES PERCENT AUTO 5 % (4-13); Mean Corpuscular HGB 27.3 pg (26.0-34.0); Mean Corpuscular HGB Conc 30.3 g/dL (31.5-36.5); Mean Corpuscular Volume 90 fL (80-100); Mean Platelet Volume 10.8 fL (9.1-12.4); NEUTROPHILS PERCENT AUTO 75 % (41-73); Platelet Count 264 K/mm3 (150-400); RDW Standard Deviation 46.1 fL (35.1-46.3); Red Blood Cell Count 3.77 M/mm3 (3.80-5.20)
[2018-08-06 04:27] LABS: Bilirubin, Total 0.2 mg/dL (0.1-1.0); Bun/Creatinine Ratio 37.7 (12.0-20.0); Calcium, Blood 9.6 mg/dL (8.5-10.1); Creatine Kinase MB Index 3.8 (0.0-4.0); Creatinine, Blood 1.14 mg/dL (0.40-1.00); Globulin, Blood 3.1 g/dL (2.2-4.0); Total Protein, Blood 6.1 g/dL (6.4-8.2)
[2018-08-06 04:42] LABS: Troponin I 1.04 ng/mL (0.000-0.040)
--- NOTE | 2018-08-06 06:27 | NUR ---
SHIFT SUMMARY. NO ACUTE CHANGES NOTED, PT'S BP HAS DECREASED FROM SBP IN THE 180'S TO 150'S. PT COMPLAINS OF 4/10 CHEST PAIN BUT STATES IT IS "TOLERABLE NOW." PT'S TROPONINS HAVE INCREASED SINCE ADMIT (SEE LABS). HEPARIN GTT STARTED: 13U/KG/HR, DOSE WT 76KG 19.8 MLS/HR INDEPENDENT VERIFY BY KENDRA SKELTON. CALL LIGHT IN REACH, BED IS LOCKED AND LOW, WILL CONTINUE TO MONITOR UNTIL REPORT IS GIVEN TO ONCOMING RN.
[2018-08-06 07:02] LABS: Source, Urine Catheter
[2018-08-06 07:15] LABS: Bilirubin, Urine Neg (Neg); Blood, Urine 5+ (Neg); Glucose Qualitative, Urine Neg (Neg); Ketones, Urine Neg (Neg); Leukocyte Esterase, Urine 3+ (Neg); Nitrite, Urine Neg (Neg); Protein, Urine 3+ (Neg); Urobilinogen, Urine NORM (Normal)
[2018-08-06 07:16] LABS: Appearance, Urine Hazy (Clear); Bacteria Mod /hpf; Color, Urine Pale Yellow (P-Yellow); Red Blood Cells, Urine 25-50 /hpf (0-2); Squamous Epithelial Cells Few /hpf (Few); Transitional Epithelial Cells Few /hpf (0-Rare); White Blood Cells, Urine 50-100 /hpf (0-5)
--- NOTE | 2018-08-06 08:29 | NUR ---
PT LAYING IN BED AWAKE A/OX3, PLEASANT AND COOPERATIVE WITH CARE, FOLLOWS COMMANDS WELL. DR. RUELAS IN TO SEE HER. LUNGS ARE DIM, TIGHT, SOME WHEEZING NOTED ON THE RIGHT SIDE, SHE IS CURRENTLY ON R/A, RESP EVEN AND UNLABORED, NO COUGH NOTED, HRR, TELE IN PLACE RUNNING SR WITH 1ST DEGREE IN THE 60S PER MONITOR, SEE STRIP, TRACE EDEMA NOTED TO B/L LE, PP UNABLET TO BE PALPATED, BUT FOUND VIA DOPPLER, PT REPORTS FOOT DROP TO RIGHT FOOT, CANT MOVE IT. IV SITE IS CLEAR AND PATENT, INFUSING HEP GTT ORDERED, SKIN HAS YEAST RASH UNDER BREAST AND PANUS, MOVES UPPER EXT WELL, ABLE TO TURN HER UPPER BODY, MOVES LEFT LOWER EXT WELL, KATRINA, CALL LIGHT IN REACH, DR. PUGA IN TO SEE HER.
--- NOTE | 2018-08-06 10:00 | NUR ---
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
--- NOTE | 2018-08-06 13:43 | NUR ---
echocardiogram completed
[2018-08-06 14:52] LABS: PCO2 Arterial 56.5 mmHg (35-45); pH Blood Arterial 7.17 (7.35-7.45)
[2018-08-06 16:55] LABS: BASOPHILS ABSOLUTE AUTO 0.06 K/mm3 (0.00-0.23); BASOPHILS PERCENT AUTO 0 % (0-2); EOSINOPHILS ABSOLUTE AUTO 0.05 K/mm3 (0.00-0.68); EOSINOPHILS PERCENT AUTO 0 % (0-6); Hematocrit 29.6 % (33.0-51.0); Hemoglobin 8.8 g/dL (11.5-16.0); IMMATURE GRAN ABSOLUTE AUTO 0.39 K/mm3 (0.00-0.10); IMMATURE GRAN PERCENT AUTO 2 % (0-1); LYMPHOCYTES ABSOLUTE AUTO 3.47 K/mm3 (0.84-5.20); LYMPHOCYTES PERCENT AUTO 14 % (21-46); MONOCYTES ABSOLUTE AUTO 1.67 K/mm3 (0.16-1.47); MONOCYTES PERCENT AUTO 7 % (4-13); Mean Corpuscular HGB 27.7 pg (26.0-34.0); Mean Corpuscular HGB Conc 29.7 g/dL (31.5-36.5); Mean Platelet Volume 10.1 fL (9.1-12.4); NEUTROPHILS ABSOLUTE AUTO 19.42 K/mm3 (1.96-9.15); NEUTROPHILS PERCENT AUTO 78 % (41-73); Platelet Count 319 K/mm3 (150-400); RDW Coefficient Variation 14.1 % (11.7-14.2); RDW Standard Deviation 48.2 fL (35.1-46.3); Red Blood Cell Count 3.18 M/mm3 (3.80-5.20); White Blood Cell Count 25.06 K/mm3 (4.00-11.30)
[2018-08-06 17:01] LABS: Mean Corpuscular Volume 93 fL (80-100)
--- NOTE | 2018-08-06 17:04 | NUR ---
TRANSFER TO ICU / SHIFT SUMMARY: PT ARRIVED TO ICU-16 FROM AT APPROX 1245. BESIDE REPORT RECEIVED. PT CURRENTLY HAS ARTERIAL LINE TO R RADIAL & VENOUS SHEATH TO L FEMORAL. BOTH OF THESE SIGHTS ARE SOFT TO PALPATION, NO BLEEDING, BRUISING OR HEMATOMA FORMATION NOTED. THE PT IS SOMNOLENT AT THIS TIME, SHE IS UNABLE TO ANSWER QUESTIONS OR FOLLOW COMMANDS. PERIODS OF APNEA QUICKLY FOLLOWED W/ DECREASED O2 SATS 80% ARE NOTED. CPAP HAS BEEN ATTEMPTED W/O SUCCESS, THE PT's O2 SATS REMAINED AT 88-89%. BIPAP WAS THEN PLACED ON THE PT, SETTINGS: 16/8 & 100% FiO2, TITRATED DOWN TO 50% FiO2 W/ O2 SATS NOW 90-94%. THE PT DID NOT TOLERATE THIS WELL & BILAT SOFT WRIST RESTRAINTS WERE PLACED TO PREVENT THE PT FROM PULLING VITAL LINES & TUBES. AFTER ONE HOUR ON BIPAP, CRITICAL ABG RESULTS WERE REPORTED TO THIS RN. CALL TO DR. RUELAS, SHE STS OKAY TO PLACE PICC & TO CONSULT DR. JOHN, LACQUER COATER. THE PT IS NOW RESTING QUIETLY W/ BIPAP IN PLACE, WRIST RESTRAINTS REMAIN ON. PICC LINE PLACED BY ALONDRA Tubbs RN. PT DONNA WELL. aPTT DRAWN REMAINS HIGH, UNABLE TO REMOVE VENOUS SHEATH AT THIS TIME. F/U ABG REMAINS CRITICAL, DR. JOHN NOTIFIED. LS ARE DIM T/O, JUNCTIONAL-JUNCTIONAL TACH NOTED ON MONITOR. PT REMAINS HYPOTENSIVE DESPITE FLUID BOLUSES ORDERED, DOPAMINE TITRATION CHARTED IN FLOWSHEET. CHRONIC MANNIGN REMAINS PATENT/DRAINING TO GRAVITY. SKIN FRAGILE T/O. WILL CONTINUE TO MONITOR & REPORT OFF TO ONCOMING RN.
[2018-08-06 17:11] LABS: International Normalized Ratio 1.03; Prothrombin Time Results 10.9 Sec (9.7-11.5)
[2018-08-06 17:25] LABS: PCO2 Arterial 58.8 mmHg (35-45); PO2 Arterial 87.3 mmHg (80-100)
[2018-08-06 17:26] LABS: pH Blood Arterial 7.13 (7.35-7.45)
[2018-08-06 18:39] LABS: Alanine Aminotransfer (ALT/SGP 19 U/L (12-78); Albumin, Blood 2.4 g/dL (3.4-5.0); Albumin/Globulin Ratio 0.9 (0.8-1.8); Alk Phos 52 U/L (50-136); Anion Gap 10 mmol/L (6-16); Aspartate Aminotrans (AST/SGOT 16 U/L (12-37); Bilirubin, Total 0.9 mg/dL (0.1-1.0); Blood Urea Nitrogen 41 mg/dL (8-24); Bun/Creatinine Ratio 145.9 (12.0-20.0); CO2, Blood 19 mmol/L (21-32); Chloride, Blood 106 mmol/L (98-108); Creatinine, Blood 0.28 mg/dL (0.40-1.00); Globulin, Blood 2.8 g/dL (2.2-4.0); Glomerular Filtration Rate >60 (60-); Glucose, Blood 327 mg/dL (70-99); Potassium, Blood 5.2 mmol/L (3.5-5.5); Sodium, Blood 135 mmol/L (136-145); Total Protein, Blood 5.2 g/dL (6.4-8.2)
--- NOTE | 2018-08-06 18:42 | NUR ---
BRADYCARDIA: SPOKE WITH DR. JOHN AND DR. BELL REGARDING PT'S ONGOING BRADYCARDIA DESPITE DOPAMINE GTT. OVERALL TREND OF HR HAS GONE DOWN THROUGHOUT THE SHIFT WITH PT'S HR IN THE LOW 40S NOW. RECEIVED ORDERS TO JUST CONTINUE DOPAMINE GTT AND TO GET ANOTHER EKG. CONTINUE TO MONITOR.
[2018-08-06 18:55] LABS: Hemoglobin 8.7 g/dL (11.5-16.0)
[2018-08-06 19:01] LABS: Calcium, Blood 7.5 mg/dL (8.5-10.1)
[2018-08-06 21:55] LABS: BASOPHILS ABSOLUTE AUTO 0.07 K/mm3 (0.00-0.23); BASOPHILS PERCENT AUTO 0 % (0-2); EOSINOPHILS ABSOLUTE AUTO 0.01 K/mm3 (0.00-0.68); EOSINOPHILS PERCENT AUTO 0 % (0-6); Hematocrit 31.5 % (33.0-51.0); Hemoglobin 9.3 g/dL (11.5-16.0); IMMATURE GRAN ABSOLUTE AUTO 0.34 K/mm3 (0.00-0.10); IMMATURE GRAN PERCENT AUTO 1 % (0-1); LYMPHOCYTES ABSOLUTE AUTO 1.98 K/mm3 (0.84-5.20); LYMPHOCYTES PERCENT AUTO 8 % (21-46); MONOCYTES ABSOLUTE AUTO 2.15 K/mm3 (0.16-1.47); MONOCYTES PERCENT AUTO 9 % (4-13); Mean Corpuscular HGB 27.5 pg (26.0-34.0); Mean Corpuscular HGB Conc 29.5 g/dL (31.5-36.5); Mean Corpuscular Volume 93 fL (80-100); Mean Platelet Volume 10.5 fL (9.1-12.4); NEUTROPHILS PERCENT AUTO 81 % (41-73); Platelet Count 362 K/mm3 (150-400); RDW Coefficient Variation 13.9 % (11.7-14.2); RDW Standard Deviation 46.9 fL (35.1-46.3); Red Blood Cell Count 3.38 M/mm3 (3.80-5.20); White Blood Cell Count 23.95 K/mm3 (4.00-11.30)
[2018-08-06 22:19] LABS: Albumin, Blood 2.7 g/dL (3.4-5.0); Albumin/Globulin Ratio 0.9 (0.8-1.8); Bilirubin, Total 0.2 mg/dL (0.1-1.0); Bun/Creatinine Ratio 31.9 (12.0-20.0); Creatinine, Blood 1.38 mg/dL (0.40-1.00); Potassium, Blood 5.4 mmol/L (3.5-5.5); Total Protein, Blood 5.7 g/dL (6.4-8.2)
[2018-08-06 22:24] LABS: D-Dimer, Quantitative 1.14 mg/L FEU (0.00-0.52); International Normalized Ratio 0.97; Prothrombin Time Results 10.3 Sec (9.7-11.5)
[2018-08-06 22:27] LABS: Troponin I 0.756 ng/mL (0.000-0.040)
[2018-08-06 22:31] LABS: PCO2 Arterial 53.3 mmHg (35-45); PO2 Arterial 96.8 mmHg (80-100)
[2018-08-06 22:32] LABS: pH Blood Arterial 7.16 (7.35-7.45)
--- NOTE | 2018-08-07 02:09 | NUR ---
ASSUMING CARE/ASSESSMENT RECEIVED PT REPORT FROM COSTA MITCHELL. PT IS STATUS POST CARDIAC CATH PROCEDURE WITH 3 STENTS PLACED. PT IS RECEIVING DOPAMINE AT 15 MCG/KG/MIN AT THE TIME OF SHIFT REPORT. PT HR IS IN THE LOW 40'S, WITH BP IN THE 90'S TO LOW 100'S. PT HS A RIGHT RADIAL ARTERIAL SHEATH. BLOOD PRESSURES ARE BEING OBTAINED THROUGH ARTERIAL LINE. SITE APPEARS TO BE WNL AND INTACT AND THIS TIME. PT HAS A RIGHT FEMORAL BLANKA ACCESS IN PLACE. PT IS ON BIPAP AT THE TIME CARE ASSUMED. PT BIPAP SETTINGS ARE 20/10 WITH 60% FIO2. PT SPO2 IS CURRENTLY MAINTAINING IN THE MID 90'S. LUNG SOUNDS ARE COARSE THROUGHOUT AND DIM IN THE BASES, INSPIRATORY WHEEZES ARE HEARD IN THE UPPER LOBES. ORDER RECEIVED SHORTLY AFTER CARE ASSUMED TO START PT ON SODIUM BICARB AT 50ML/HR. SODIUM BICARB STARTED ORDERED. PT HAS A CHRONIC MANNING CATHETER. PT APPEARS TO BE DRAINING CLEAR TO HAZY YELLOW URINE AT THIS TIME. AT THE TIME OF INITIAL ASSESSMENT PT WAS NOTED TO HAVE ABSENT PEDAL PULSES BILATERALLY WITH THE USE OF DOPPLER. ABSENCE OF PEDAL PULSES WAS CONFIRMED BY 2 ADDITIONAL RN'S. AT APPROX 2024 DR BELL WAS CALLED AND INFORMED OF ABSENCE OF PEDAL PULSES. INSTRUCTIONS RECEIVED TO ENTER ORDER FOR BILATERAL ARTERIAL ULTRASOUND OF THE BLE AND TO CALL DR JOHN AND INFORM HER OF ABSENCE OF PEDAL PULSES. ORDERS ALSO RECEIVED TO DRAW RAINBOW AND COAG LABS. DR JOHN CALLED, ALVARO STATED THAT SHE WOULD BE IN ON UNIT TO ASSESS PT. SLOT SUPERVISOR ARRIVED TO PERFORM ULTRASOUND ON PT, ALVARO ARRIVED TO UNIT AT APPROX 2100. AFTER REVIEWING FINDINGS FROM ULTRASOUND ORDER RECEIVED FROM DR. JOHN TO TAKE PT TO CT FOR ABDOMINAL AND PELVIC CT SCAN. PT TRANSPORTED TO CT BY THIS RN WITH THE ASSISTANCE OF ALVARO AND COOKIE FROM RT AT APPROX 2140. RETURNED FROM CT AT APPROX 2210. DR JOHN SPOKE WITH DR BELL ABOUT RESULTS FROM CT. INSTRUCTIONS RECEIVED FROM ARABELLA TO BEGIN HEPARIN INFUSION PER PHARMACY AND TO PROVIDE CONTACT INFORMATION FOR THE RADIOLOGIST WHO READ CT SCAN SO ARABELLA CAN SPEAK WITH THEM. INSTRUCTIONS RECEIVED FROM ARABELLA TO INITIATE HEPARIN INFUSION AND MONITOR BLE FOR ANY SIGNS OF WORSENING ISCHEMIA. PT BLE APPEAR TO BE STABLE AT THIS TIME AND NO SIGNS OF WORSENING ISCHEMIA IS NOTED. PT LOWER EXTREIMITES REMAIN DUSKY BUT COLOR DOES NOT APPEAR TO BE WORSENING AT THIS TIME. AT APPROX 0000 BLANKA SHEATH FROM THE RIGHT GROIN WAS PULLED. NO SIGNS OF OOZING, DRAINAGE, OR HEMATOMA NOTED AT THIS TIME. WILL MONITOR. PT RESTRAINTS REMOVED AT APPROX 0000. PT IS NOT REACHING FOR LINES OR TUBES AT THIS TIME. HEPARIN INITATED ORDERED AT A RATE OF 14U/KG/HR PER PHARMACY. AT APPROX 0145 DOPAMINE WAS TITRATED DOWN TO 13 PT BP HAS INCREASED TO 140/40'S TITRATION UNSUCCESSFUL PT HR DECREASED TO 38-40 WITH REDUCTION OF DOPAMINE. DOPAMINE INCREASED TO PREVIOUS RATE OF 15MCG/KG/MIN. PT FAMILY CALLED AND INFORMED OF PT STATUS BY CHARGE NURSE RINA Charlton, AT APPROX 2100. FAMILY PRESENT UNTIL APPROX 0100. PT GIVEN UPDATES OF PT STATUS BY THIS RN AND DR JOHN. PT HAS BEEN SOMNOLENT THUS FAT THROUGH THE NIGHT BUT IS AROUSABLE AND ABLE TO FOLLOW COMMANDS. PT IS CONFUSED AT TIMES THOUGH ORIENTED TO SELF AND FAMILY. ASSUMED CARE OF PT AT THE TIME OF SHIFT REPORT, APPROX 1900. WILL CONTINUE TO MONITOR PT.
[2018-08-07 03:46] LABS: BASOPHILS ABSOLUTE AUTO 0.04 K/mm3 (0.00-0.23); BASOPHILS PERCENT AUTO 0 % (0-2); EOSINOPHILS PERCENT AUTO 0 % (0-6); Hematocrit 28.4 % (33.0-51.0); Hemoglobin 8.5 g/dL (11.5-16.0); IMMATURE GRAN ABSOLUTE AUTO 0.32 K/mm3 (0.00-0.10); IMMATURE GRAN PERCENT AUTO 1 % (0-1); LYMPHOCYTES ABSOLUTE AUTO 1.39 K/mm3 (0.84-5.20); LYMPHOCYTES PERCENT AUTO 6 % (21-46); MONOCYTES PERCENT AUTO 8 % (4-13); Mean Corpuscular HGB Conc 29.9 g/dL (31.5-36.5); Mean Platelet Volume 10.6 fL (9.1-12.4); NEUTROPHILS ABSOLUTE AUTO 21.26 K/mm3 (1.96-9.15); NEUTROPHILS PERCENT AUTO 85 % (41-73); Platelet Count 305 K/mm3 (150-400); RDW Coefficient Variation 14.3 % (11.7-14.2); RDW Standard Deviation 46.5 fL (35.1-46.3); Red Blood Cell Count 3.15 M/mm3 (3.80-5.20); White Blood Cell Count 24.91 K/mm3 (4.00-11.30)
[2018-08-07 03:50] LABS: Mean Corpuscular Volume 90 fL (80-100)
[2018-08-07 04:05] LABS: Albumin, Blood 2.5 g/dL (3.4-5.0); Albumin/Globulin Ratio 0.8 (0.8-1.8); Bilirubin, Total 0.1 mg/dL (0.1-1.0); Bun/Creatinine Ratio 30.4 (12.0-20.0); Calcium, Blood 7.9 mg/dL (8.5-10.1); Creatinine, Blood 1.58 mg/dL (0.40-1.00); Magnesium, Blood 2.3 mg/dL (1.6-2.4); Phosphorus, Blood 5.4 mg/dL (2.5-4.9); Potassium, Blood 5.5 mmol/L (3.5-5.5); Total Protein, Blood 5.5 g/dL (6.4-8.2)
[2018-08-07 05:23] LABS: PCO2 Arterial 52.1 mmHg (35-45)
--- NOTE | 2018-08-07 07:18 | NUR ---
SHIFT SUMAMRY NOTE PT REMAINS ON BIPAP AT THIS TIME. BIPAP REMAINS AT 20/10, FIO2 WAS DECREASED TO 40% OVERNIGHT. PT IS CURRENTLY MAINTAINING SPO2 IN THE MID 90'S. PT CONTINUES TO RECEIVE BICARB AT 100ML/HR. PT DOPAMINE IS CURRENTLY RUNNING AT 20MCG/KG/MIN. PT SYSTOLIC BLOOD PRESSURE IS MAINTAINING IN THE 140'S THOUGH PT DIASTOLIC IS IN THE 30-40'S RANGE. PT HR HAS IMPROVED SLIGHTLY AND IS IN THE HIGH 40'S TO 50'S. WITH ATTEMPTS TO TITRATE DOPAMINE DOWN PT HR WILL DECREASE TO THE LOW 40'S TO HIGH 30'S AND PT BP WILL DECREASE TO THE 110/30'S RANGE. PT IS RECEIVING HEPARIN AT A RATE OF 14U/KG/HR. AT APPROX 0622 THIS RN RECEIVED A CRITICAL HIGH APTT LAB RESULT OF 120.7. THIS RESULT WAS QUESTIONED AND A REDRAW WAS PERFORMED WITH A RESULT OF 92.6. PHARMACY CALLED AND INFORMED OF RESULTS OF REDRAW. PT REMAINS ABLE TO FOLLOW SOME COMMANDS THOUGH PT IS OCCASIONALLY CONFUSED. PT RESTRAINTS WERE REMOVED AT APPROX 0000. PT HAD APPROX 200ML OF URINE OUTPUT OVERNIGHT. PICC LINE DRESSING WAS CHANGED. PT FAMILY CALLED FOR UPDATE AT APPROX 0600. UPDATE GIVEN. PT RADIAL ARTERIAL SHEATH REMAINS INPLACE WITH NO SIGNS OF SWELLING OR HEMATOMA. BANDAGE TO RIGHT GROIN FROM BLANKA ACCESS REMAINS CDI. WILL REPORT OFF TO ONCOMING DAY SHIFT NURSE.
--- NOTE | 2018-08-07 08:55 | NUR ---
ASSUMED CARE: REPORT RECEIVED FROM JADYN Deleon RN. ASSUMED CARE OF THIS PT AT APPROX 0700. ON ASSESSMENT, THE PT IS TOLERATING BIPAP WELL, SETTINGS: 20/10 & 40% FiO2. SHE IS RESTLESS & HAS C/O GENERALIZED PAIN, MEDS PER EMAR. SHE IS ABLE TO TAKE A BREAK FROM BIPAP & USE 4L NC W/ STABLE O2 SATS. SWALLOWS PO MEDS SAFELY W/ SIPS OF WATER AT THIS TIME, NEEDS REMINDER TO TUCK CHIN & TAKE SMALL SIPS. PT IS NOW BACK ON BIPAP. DOPAMINE CONTINUES FOR BP & HR SUPPORT. WILL CONTINUE TO MONITOR & UPDATE NEEDED.
--- NOTE | 2018-08-07 10:00 | NUR ---
DR. BELL: PROVIDER IN ROOM TO SEE PT. FAMILY IN ROOM AT THIS TIME & HE IS ABLE TO UPDATE THEM ON PT's POC. HE STS THAT HE BELIEVES THE PT's POOR CIRCULATION TO BLE IS CHRONIC, & HAS BEEN EXACERBATED W/ HER CURRENT INFECTIOUS PROCESS. WILL CONTINUE TO MONITOR & UPDATE NEEDED.
--- NOTE | 2018-08-07 12:02 | NUR ---
PARTIAL ECHOCARDIOGRAM COMPELTED
--- NOTE | 2018-08-07 12:46 | NUR ---
DR. JOHN: PROVIDER IN ROOM TO SEE PT. SHE STS WE WILL CONTINUE BIPAP THERAPY R/T PT's pH & RECHECK ABG. SPUTUM SPECIMEN HAS ALSO BEEN SENT TO LAB FOR CX PER PROVIDER. WILL CONTINUE TO MONITOR & UPDATE NEEDED.
[2018-08-07 13:19] LABS: PCO2 Arterial 49.9 mmHg (35-45); PO2 Arterial 120 mmHg (80-100)
--- NOTE | 2018-08-07 18:47 | NUR ---
SHIFT SUMMARY: PT A&O, COOPERATIVE W/ CARE. SHE HAS RESTED WELL THIS SHIFT & BEEN COMPLIANT W/ BIPAP THERAPY. BIPAP SETTINGS: 20/10 & 40% FiO2. PT HAS TOLERATED BREAKS FROM BIPAP W/ 4L NC & O2 SATS > 92%. DOPAMINE TITRATED DOWN THIS SHIFT, PER DR. JOHN, GOAL IS TO MAINTAIN MAP > 60. PULSES TO BLE ARE NOW PALPABLE BUT REMAIN FAINT & THREADY. BT x4, PT TOLERATING SIPS OF WATER WELL. CHRONIC MANNING IS PATENT/DRAINING TO GRAVITY. PICC DRESSING TO CARLO HAS BEEN CHANGED THIS SHIFT. WILL CONTINUE TO MONITOR & REPORT OFF TO ONCOMING RN.
--- NOTE | 2018-08-07 21:12 | NUR ---
ASSUMING CARE RECEVIED PT REPORT FROM ARLEN RN. PT REMAINS ON BIPAP AT TIMES BUT HAS BEEN TOLERATING BREAKS ON NC AT 4L WITHOUT DESATURATIONS. PT BIPAP SETTINGS ARE 20/10 WITH 40% FIO2. PT IS MAINTAINING SPO2 IN THE MID TO HIGH 90'S. LUNG SOUNDS ARE DIMINISHED THOUGH CLEAR THROUGHOUT. PT IS ALERT AND ORIENTED AT THIS TIME, AND IS CONVERSING WITH FAMILY AT BEDSIDE AT THE TIME CARE WAS ASSUMED. PT PEDAL PULSES ARE VERY FAINT BUT PRESENT WITH DOPPLER. PEDAL PULSES ARE NOT CONSISTANT WITH HEART RATE WITH ONLY EVERY OTHER TO EVERY THIRD BEAT BEING HEARD WITH DOPPLER. PT IS REPORTING INTERMITTENT PAIN AND BURNING IN LEGS. WILL PROVIDE PAIN MEDICATIONS PER EMAR. COLOR AND TEMP TO BLE'S ARE IMPROVING. CAP REFILL REMAINS SLUGGISH AT APPROX 3.5 SECONDS. PT IS ON DOPAMINE AT 8MCG/KG/MIN AT THE TIME OF SHIFT REPORT. PT HR IS IN THE 60'S AT THIS TIME. PT BP IS IN THE 140'S SYSTOLIC THOUGH DIASTOLIC REMAINS IN THE 40'S. NURSE NOTIFY IN PLACE TO MAINTAIN MAP AT 60 OR GREATER. AFTER CARE ASSUMED DOPAMINE WAS TITRATED DOWN AND AT THE TIME OF THIS NOTE DOPAMINE IS ON STANDBY. REFER TO FLOW SHEET FOR TIMES AND DETAILS OF DOPAMINE TITRATIONS. PT IS RECEIVING NS AT TKO AND SODIUM BICARB AT 75ML/HR. PT HAS A CHRONIC MANNING IN PLACE. CURRENTYLY PATENT AND DRAINING YELLOW URINE TO GRAVITY. PT HAS RT RADIAL ART LINE IN PLACE. NO SIGNS OF OOZING, SWELLING, OR HEMATOMA NOTED. ASSUMING CARE OF PT AT THE TIME OF SHIFT REPORT. WILL CONTINUE TO MONITOR PT.
--- NOTE | 2018-08-08 03:31 | NUR ---
BP NOTE PT REMAINS OFF OF DOPAMINE AT THIS TIME. PT SYSTOLIC BP HAS INCREASED AND IS IN THE 180-190'S AT THIS TIME. PT DIASTOLIC REMAINS IN THE 40'S AT THIS TIME. PT HR IS MAINTAINING IN THE 60-70'S. DR JOHN CALLED AND INFORMED OF PTS CURRENT SBP AND WIDE PULSE PRESSURE. DR JOHN GAVE INSTRUCTIONS TO PROVIDE 0900 DOSE OF LISINOPRIL AT THIS TIME. LISINOPRIL PROVIDED INSTRUCTED. WILL CONTINUE TO MONITOR PT.
[2018-08-08 03:36] LABS: BASOPHILS ABSOLUTE AUTO 0.03 K/mm3 (0.00-0.23); BASOPHILS PERCENT AUTO 0 % (0-2); EOSINOPHILS ABSOLUTE AUTO 0.04 K/mm3 (0.00-0.68); EOSINOPHILS PERCENT AUTO 0 % (0-6); Hematocrit 21.6 % (33.0-51.0); Hemoglobin 6.6 g/dL (11.5-16.0); IMMATURE GRAN ABSOLUTE AUTO 0.08 K/mm3 (0.00-0.10); IMMATURE GRAN PERCENT AUTO 1 % (0-1); LYMPHOCYTES ABSOLUTE AUTO 1.94 K/mm3 (0.84-5.20); LYMPHOCYTES PERCENT AUTO 18 % (21-46); MONOCYTES ABSOLUTE AUTO 0.58 K/mm3 (0.16-1.47); MONOCYTES PERCENT AUTO 5 % (4-13); Mean Corpuscular HGB 27.7 pg (26.0-34.0); Mean Corpuscular HGB Conc 30.6 g/dL (31.5-36.5); Mean Corpuscular Volume 91 fL (80-100); Mean Platelet Volume 10.4 fL (9.1-12.4); NEUTROPHILS ABSOLUTE AUTO 8.29 K/mm3 (1.96-9.15); NEUTROPHILS PERCENT AUTO 76 % (41-73); Platelet Count 166 K/mm3 (150-400); RDW Coefficient Variation 14.4 % (11.7-14.2); Red Blood Cell Count 2.38 M/mm3 (3.80-5.20); White Blood Cell Count 10.96 K/mm3 (4.00-11.30)
[2018-08-08 03:55] LABS: Bun/Creatinine Ratio 27.1 (12.0-20.0); Calcium, Blood 7.3 mg/dL (8.5-10.1); Creatinine, Blood 1.7 mg/dL (0.40-1.00); Magnesium, Blood 2.3 mg/dL (1.6-2.4); Phosphorus, Blood 4.7 mg/dL (2.5-4.9); Potassium, Blood 4.3 mmol/L (3.5-5.5)
[2018-08-08 05:00] LABS: PCO2 Arterial 49.3 mmHg (35-45); PO2 Arterial 112 mmHg (80-100); pH Blood Arterial 7.37 (7.35-7.45)
--- NOTE | 2018-08-08 05:20 | NUR ---
H/H WITH MORNING LABS PT HEMOGLOBIN WAS FOUND TO BE 6.6. HEMOGLOBIN LAB VALUE FROM ABG WAS 6.7. PT DOES NOT APPEAR TO HAVE ANY OBVIOUS SIGNS OF ACTIVE BLEEDING AT THIS TIME. DR JOHN WAS CALLED AND INFORMED OF PT'S HEMOGLOBIN. ORDERS RECEIVED TO PERFORM A REDRAW OF H/H AND TRANSFUSE 1 UNIT PRBC'S IF LESS THAN 7.0 ON REDRAW. REDRAW ORDER ENTERED RECEIVED AWAITING RESULTS AT THIS TIME. WILL CONTINUE TO MONITOR PT.
[2018-08-08 05:51] LABS: Hematocrit 20.9 % (33.0-51.0); Hemoglobin 6.5 g/dL (11.5-16.0)
--- NOTE | 2018-08-08 06:38 | NUR ---
H/H REPEAT H/H LAB DRAW REVEALED A HEMOGLOBIN OF 6.5. ORDER TO TRANSFUSE [address] ENTERED PER [address] JOHN'S INSTRUCTIONS. WILL CONTINUE TO MONITOR.
--- NOTE | 2018-08-08 06:41 | NUR ---
DR ROSALBA NAVARRETE CALLED AND INFORMED OF PT'S WIDE PULSE PRESSURE. PT BPS VIA ART LINE HAVE READ IN THE 170-180'S/40'S. ART LINE APPEARS TO HAVE A GOOD WAVEFORM THAT IS CONSISTANT WITH PULSE. ZEROING ART LINE HAS CONSISTANT RESULTS AND A DISTINCT BOXED WAVE FORM IS OBSERVED WITH FLUSHING. ART LINE INSPECTED BY 2 ADDITIONAL RN'S INCLUDING Kimberly OCASIO CHARGE NURSE. TRANSDUCER IS AT LEVEL OF PHLEBOSTATIC ACCESS. DR NAVARRETE GAVE INSTRUCTIONS TO CONFIRM BP WITH CUFF, AND IF BP'S CORELATE TO PROVIDE AM NORVASC EARLY. BP CHECKED WITH A CUFF INSTRUCTED. BP'S DO NOT CORRELATE WITH A BP OF APPROX 152/48 AT THE TIME OF THIS NOTE. NORVASC NOT GIVEN AT THIS TIME. WILL CONTINUE TO MONITOR PT.
--- NOTE | 2018-08-08 07:29 | NUR ---
SHIFT SUMAMRY NOTE PT HAS REMAINED ALERT AND ORIENTED THROUGHOUT THE NIGHT WHILE AWAKE. PT HAS REMAINED ON BIPAP THROUGHOUT THE NIGHT. BIPAP WAS CHANGED TO AVAPS SETTING BY RT. REFER TO RT CHARTING FOR DETAILS OF BIPAP CHANGES. PT HAS MAINTAINED SPO2 IN THE HIGH 90'S THROUGH THE NIGHT WITHOUT ANY DESATURATIONS NOTED. PT ART LINE READINGS HAVE HAD VERY WIDE PULSE PRESSURES WITH 170'S/40'S SYSTOLIC HAS BEEN NOTED TO BE UP IN THE 190'S AT TIMES. PT HAS MAINTAINED MAP GREATER THAN 60 THROUGH THE NIGHT. PREVIOUSLY NOTED ART LINE PRESSURES ARE NOT CORRELATING WITH CUFF BP'S. ART LINE CONTINUES TO HAVE A GOOD WAVEFORM. PT HR IS MAINTAINING IN THE 60-70'S RANGE. PT PULSES IN BLE REMAIN VERY DIFFICULT TO OBTAIN DESPITE USE OF DOPPLER. COLOR AND TEMPERATURE HAS IMPORVED OVERNIGHT. PT CONTINUES TO HAVE MANNING CATH IN PLACE, CURRENTLY PATENT AND DRAINING CLEAR YELLOW URINE AT THIS TIME. PT HAD APPROX 550ML OF URINE OUTPUT OVERNIGHT. ORDER ENTERED TO TRANSFUSE [address] ANTOINE ORDERS. WILL REPORT OFF TO ONCOMING DAY SHIFT NURSE.
--- NOTE | 2018-08-08 08:38 | NUR ---
0720 ASSUMED CARE: PT IS AWAKE. ON BIPAP. GAVE PT A BREAK ON HER BIPAP AT THIS TIME AND ON 4LPM NC. PT IS ORIENTED TO TIME, PLACE, SELF. PT COMPLAINTS OF R RADIAL ACCESS/ART LINE SITE. BRUISING NOTED TO THE SITE WHICH PER REPORT FROM NIGHT RN, PHYSICIANS ARE AWARE.
--- NOTE | 2018-08-08 10:25 | NUR ---
0900-DR. BELL CAME BY TO SEE PATIENT. UPDATED HIM OF PT'S COMPLAINTS OF R WRIST PAIN FROM ART. LINE. INFORMED HIM THAT PT'S BLOOD PRESSURE IS STABLE AND DOPAMINE HAS BEEN OFF SINCE 2144 LAST NIGHT. 1005-DISCONTINUED ARTERIAL LINE ORDERED. 10 MINUTE PRESSUR WAS APPLIED. WILL CONTINUE TO WATCH FOR BLEEDING. FAMILY AT BEDSIDE UPDATED THEM OF PT'S STATUS.
--- NOTE | 2018-08-08 13:16 | NUR ---
BLOOD TRANSFSION DONE. NO BLOOD TRANSFUSIION REACTION NOTED.
[2018-08-08 14:14] LABS: Hematocrit 22.9 % (33.0-51.0); Hemoglobin 7.2 g/dL (11.5-16.0)
[2018-08-08 14:31] LABS: International Normalized Ratio 1.09; Prothrombin Time Results 11.5 Sec (9.7-11.5)
[2018-08-08 18:27] LABS: Hematocrit 24.7 % (33.0-51.0); Hemoglobin 7.7 g/dL (11.5-16.0)
--- NOTE | 2018-08-08 18:50 | NUR ---
SHIFT SUMMARY: PT IS ALERT AND ORIENTED. PAIN NOTED TO R ARM ACCESS SITE WITH MOVEMENT. R RADIAL ACCESS SITE HAS BRUISING, NO HEMATOMA NOTED. STABLE. AFEBRILE. PT HAD RECEIVED 1 UNIT OF PRBC ORDERED. PT WAS ABLE TO TOLERATE HER DIET WITHOUT ANY DIFFICULTY OF SWALLOWING. PT IS 2 LPM NC AT THIS TIME. BLOOD PRESSURE STABLE.
--- NOTE | 2018-08-08 19:30 | NUR ---
CARE ASSUMED REPORT RECEIVED, CARE ASSUMED. PT ALERT, ORIENTED SITTING UP IN BED AND WATCHING TELEVISION. 02 SAT IN 90'S ON 3 LPM NASAL CANNULA. PT DENIES NEEDS. CALL LIGHT IN REACH, AGREES TO CALL FOR NEEDS.
--- NOTE | 2018-08-08 20:40 | NUR ---
EDUCATION/ INVOLVEMENT IN CARE DIRECTOR SEARCH WITHOUT DIFFICULTIES. ATTEMPTED TO EDUCATE PT ON MEDICATIONS AND PT UNINTERESTED. STATES SHE DOES NOT KNOW WHICH MEDS SHE TAKES AT HOME. ATTEMPTED TO REPOSITION AND PROVIDE SKIN/ORAL CARE AND PT REFUSES. PT EDUCATED/ENCOURAGED. WILL REAPPROACH.
--- NOTE | 2018-08-08 22:00 | NUR ---
OXYGEN COMPLIANCE O2 SAT'S NOTED TO BE MID 80'S. UPON ENTERING ROOM, PT'S OXYGEN COMPLETELY OFF. EDUCATED PT ON IMPORTANCE OF WEARING OXYGEN AND PT STATES, "I WILL TRY." WILL CONTINUE TO ENCOURAGE AND EDUCATE.
--- NOTE | 2018-08-09 01:01 | NUR ---
SCD'S/MADAN HOSE PT REFUSING SCD'S/MADAN HOSE DUE TO CONCERN FOR PAIN. EDUCATED MULTIPLE TIMES AND CONTINUES TO REFUSE. PLAN TO REAPPROACH.
[2018-08-09 03:27] LABS: Base Excess Venous 1.8 mmol/L; Bicarbonate Venous 25.4 mmol/L (24.0-30.0); PCO2 Venous 59.9 mmHg (38-42); PO2 Venous 48.6 mmHg (38-42); pH Blood Venous 7.29 (7.34-7.37)
[2018-08-09 03:47] LABS: BASOPHILS ABSOLUTE AUTO 0.03 K/mm3 (0.00-0.23); BASOPHILS PERCENT AUTO 0 % (0-2); EOSINOPHILS ABSOLUTE AUTO 0.17 K/mm3 (0.00-0.68); EOSINOPHILS PERCENT AUTO 2 % (0-6); Hematocrit 24.5 % (33.0-51.0); Hemoglobin 7.6 g/dL (11.5-16.0); IMMATURE GRAN ABSOLUTE AUTO 0.07 K/mm3 (0.00-0.10); IMMATURE GRAN PERCENT AUTO 1 % (0-1); LYMPHOCYTES ABSOLUTE AUTO 2.08 K/mm3 (0.84-5.20); LYMPHOCYTES PERCENT AUTO 18 % (21-46); MONOCYTES ABSOLUTE AUTO 0.67 K/mm3 (0.16-1.47); MONOCYTES PERCENT AUTO 6 % (4-13); Mean Corpuscular Volume 90 fL (80-100); Mean Platelet Volume 10.6 fL (9.1-12.4); NEUTROPHILS ABSOLUTE AUTO 8.33 K/mm3 (1.96-9.15); NEUTROPHILS PERCENT AUTO 73 % (41-73); Platelet Count 156 K/mm3 (150-400); RDW Coefficient Variation 14.3 % (11.7-14.2); RDW Standard Deviation 47.2 fL (35.1-46.3); Red Blood Cell Count 2.71 M/mm3 (3.80-5.20); White Blood Cell Count 11.35 K/mm3 (4.00-11.30)
[2018-08-09 04:03] LABS: Bun/Creatinine Ratio 30.6 (12.0-20.0); Calcium, Blood 7.4 mg/dL (8.5-10.1); Creatinine, Blood 1.6 mg/dL (0.40-1.00); Potassium, Blood 4.5 mmol/L (3.5-5.5)
--- NOTE | 2018-08-09 06:26 | NUR ---
SUMMARY SINCE PREVIOUS NOTE, PT HAS CONTINUED TO REFUSE BIPAP AND MOST ADL'S AFTER FREQUENT EDUCATION. PT HAS ONLY SLEPT SMALL PERIODS OF TIME, REPORTING SHE "JUST CAN'T SLEEP." OFFERED PT TEA, REPOSITIONING, STIMULUS REDUCTION, BLANKETS FROM WARMER AND WAS UNSUCCESSFUL IN FACILITATING SLEEP. VITALS STABLE THROUGHOUT NIGHT. PT HAS NOT REQUIRED PAIN MEDICIATION. PT HAS CALLED APPROPRIATELY FOR NEEDS THROUGHOUT NIGHT. SEE ASSESSMENTS/FLOWSHEETS.
--- NOTE | 2018-08-09 08:51 | NUR ---
FEMALE PATIENT ALERT AND ORIENTED. AM CARE AND MAGEN CARE DONE. NYSTATIN TO UNDER BREASTS , PANUS AND GROIN. ATE BREAKFAST AND MORNING PILLS. RIGHT WRIST ON ARM BOARD AND TR BAND SITE SOFT AN ONLT A SLIGHT ECCYMOTIC AREA.ALSO A LARGER ECCYMOTIC AREA HIGHER ON ARM. PAT STATES THIS AREA IS VERY SORE. BED CONTROLS FOR PATIENT NOT WORKING, BIOMED CALLED. LUNGS DIM T/O AND SLIGHT EXP WHEEZES. 3L NC ON. RIGHT GROIN DRESSING CLEAN AND DRY. UNABLE TO FIND PEDAL PULSE ON RIGHT FOOT EVEN WITH DOPPLER BUT POST TIBIAL IS PRESENT AND FOOT IS WARM TO TOUCH.
--- NOTE | 2018-08-09 10:52 | NUR ---
REPOSITIONED TO GET OFF COCCYX. MED WITH MORPHINE 1 MG FOR 6/10 GENERALIZED PAIN.
--- NOTE | 2018-08-09 11:26 | NUR ---
DR ZAIDI IN TO EXAMINE PATIENT. REVIEWED HOR MORNING ABG WITH HER AND SHE AGREED TO GO BACK ON BIPAP FOR AWHILE. R.T. HERE AND BIPAP AT 20/10 AND 30%.
--- NOTE | 2018-08-09 13:54 | NUR ---
OFF THE AVAP 06/16/12 WITH VT 440 AND ON 3L NC. EATING LUNCH. NO COMPS.
[2018-08-09 14:18] LABS: Stool Occult Blood Guaiac 1 Pos (Neg)
--- NOTE | 2018-08-09 16:48 | NUR ---
DR HERNANDEZ IN TO EXAMINE PATIENT. DOES NOT WEAR O2 OR CPAP AT HOME. DOES HAVE AN UDN MACHINE. MADE PCU STATUS.
--- NOTE | 2018-08-09 18:53 | NUR ---
suddenly very nauseated and med with zofran 4mg ivp.
--- NOTE | 2018-08-09 20:02 | NUR ---
THIS NOTE BEING ENTERED PER JORDYN CONTRERAS: "VERY GOOD DAY. STILL HAS WEAK EXP WHEEZES. ON 3L NC. WANTS HER ROXANAL LIQ AT BEDTIME AND THEN USE AVAP FOR THE NIGHT. SOME PAIN LEFT CHEST AFTER COUGHING. MED WITH MORPHINE 1MG WITH RELIEF. ONE DAUGHTER CALLED IN TO INQUIRE ABOUT PATIENT. WENT OVER THE 2ND UNIT OF BLOOD AND THAT SHE WAS MADE A PCU STATUS PATIENT. DAUGHTER SAID THAT SHE COULD NOT GO HOME YET SHE WAS TOO SICK. I EXPLAINED TO HER THAT MANY [facility] PATIENTS GO HOME THE NEXT DAY BUT SHE DOES HAVE MANY COMORBIDITIES. ALSO A DROP IN HER HEMOGLOBIN WITH [address] ZAIDI CALLED AND HE REQUESTED A GI CONSULT FOR TOMORROW AM.
--- NOTE | 2018-08-09 21:00 | NUR ---
CARE ASSUMED REPORT RECEIVED, CARE ASSUMED AT 1900. PT ALERT, ORIENTED, AWAKE WATCHING TELEVISION. REPORTS "JUST NOT FEELING GOOD." MEDICATED FOR NAUSEA ON PREVIOUS SHIFT. PROVIDED PT WITH SPRITE FOR CONTINUED NAUSEA. PT DECLINES MORPHINE BUT ACCEPTING OF TYLENOL AND ATIVAN. PT INITERMITTENTLY TEARFUL REGARDING DISCOMFORT. PROVIDED PT WITH SUPPORT AND ENCOURAGEMENT. PT ON NASAL CANNULA, PLAN TO BATH, ORAL CARE ONCE PATIENT'S PAIN/DISCOMFORT BEGINS IMPROVING AND PT IS ABLE TO TOLERATE. PT ACCEPTING OF REPOSITIONING. VITALS STABLE. SEE ASSESSMENT. CALL LIGHT WITHIN REACH.
--- NOTE | 2018-08-09 22:40 | NUR ---
PAIN/DISCOMFORT CALLED INTO ROOM BY PATIENT REPORTING PAIN IN HER LEFT UPPER ARM RELATED TO PICC LINE. NOTEABLE BRUISING AROUND SITE, BUT ASSESSMENT UNCHANGED FROM INITIAL. CONTINUES TO FLUSH/DRAW. SMALL AMOUNT OF OLD DRAINAGE AROUND SITE, PLAN TO CHANGE DRESSING. OSVALDO BEJARANO RN AT BEDSIDE FOR SECOND ASSESSMENT AND AGREES TO PLAN TO LEAVE PICC LINE IN PLACE, CHANGE DRESSING AND NOTIFY DAY SHIFT PROVIDER FOR POSSIBLE EVALUATION TOMORROW. PT MEDICATED WITH MORPHINE AND RELAXED WITHIN 10 MINUTES. PROVIDING LOW STIMULI TO ENCOURAGE REST. CALL LIGHT WITHIN REACH.
--- NOTE | 2018-08-09 23:30 | NUR ---
PROVIDER COMMUNICATION UPDATED DOTTIE FERNANDEZ ON PT'S NAUSEA AND COMPLAINTS IN LEFT UPPER ARM RELATED TO PICC. NEW ORDER FOR ANTIEMETICS. JIM ENCOURAGED CONTINUED MONITORING AND DISCUSSION WITH [facility] REGARDING POSSIBLE ULTRASOUND OF LEFT UPPER ARM.
--- NOTE | 2018-08-10 00:42 | NUR ---
UPDATE SINCE PREVIOUS NOTE, PT HAS DENIED PAIN/DISCOMFORT OR NAUSEA. PT PARTICIPATED IN BED BATH AND WAS ABLE TO DO MOST TURNING HERSELF, THOUGH DID BECOME TACHYPNEIC WITH EXERTION. AGREEABLE TO BE PLACED ON BIPAP - AVAPS MODE AND TOLERATING WELL SINCE THEN. VITALS CONINUE TO BE STABLE.
[2018-08-10 03:41] LABS: BASOPHILS ABSOLUTE AUTO 0.04 K/mm3 (0.00-0.23); BASOPHILS PERCENT AUTO 0 % (0-2); EOSINOPHILS ABSOLUTE AUTO 0.22 K/mm3 (0.00-0.68); EOSINOPHILS PERCENT AUTO 2 % (0-6); Hematocrit 27.6 % (33.0-51.0); Hemoglobin 8.5 g/dL (11.5-16.0); IMMATURE GRAN ABSOLUTE AUTO 0.08 K/mm3 (0.00-0.10); IMMATURE GRAN PERCENT AUTO 1 % (0-1); LYMPHOCYTES ABSOLUTE AUTO 1.83 K/mm3 (0.84-5.20); LYMPHOCYTES PERCENT AUTO 17 % (21-46); MONOCYTES ABSOLUTE AUTO 0.63 K/mm3 (0.16-1.47); MONOCYTES PERCENT AUTO 6 % (4-13); Mean Corpuscular HGB 28.1 pg (26.0-34.0); Mean Corpuscular HGB Conc 30.8 g/dL (31.5-36.5); Mean Corpuscular Volume 91 fL (80-100); Mean Platelet Volume 10.2 fL (9.1-12.4); NEUTROPHILS ABSOLUTE AUTO 8.05 K/mm3 (1.96-9.15); NEUTROPHILS PERCENT AUTO 74 % (41-73); Platelet Count 151 K/mm3 (150-400); RDW Coefficient Variation 15.6 % (11.7-14.2); RDW Standard Deviation 51.6 fL (35.1-46.3); Red Blood Cell Count 3.02 M/mm3 (3.80-5.20); White Blood Cell Count 10.85 K/mm3 (4.00-11.30)
[2018-08-10 03:59] LABS: Albumin, Blood 2.2 g/dL (3.4-5.0); Anion Gap 6 mmol/L (6-16); Blood Urea Nitrogen 58 mg/dL (8-24); Bun/Creatinine Ratio 42.6 (12.0-20.0); CO2, Blood 28 mmol/L (21-32); Calcium, Blood 7.5 mg/dL (8.5-10.1); Chloride, Blood 106 mmol/L (98-108); Creatinine, Blood 1.36 mg/dL (0.40-1.00); Glomerular Filtration Rate 40 (60-); Glucose, Blood 90 mg/dL (70-99); Phosphorus, Blood 4.2 mg/dL (2.5-4.9); Potassium, Blood 4.9 mmol/L (3.5-5.5); Sodium, Blood 140 mmol/L (136-145)
--- NOTE | 2018-08-10 06:26 | NUR ---
SUMMARY SINCE PREVIOUS NOTE, PT HAS SLEPT INTERMITTENTLY, CALLING THROUGHOUT NIGHT FOR NEEDS. TOLERATING BIPAP WITH BREAKS. ALLOWING COMPLETION OF ADL'S, THOUGH DOES CONTINUE TO REFUSE SCDS/MADAN HOSE DUE TO PAIN IN HER LEGS. SINCE MEDICATED WITH MORPHINE, PT HAS DENIED NEED FOR PAIN MEDS OR NAUSEA MEDS. ASSESSMENTS UNCHANGED. VITALS STABLE. THIS MORNING PT PROVIDED WITH SNACK AND DECAF COFFEE PER REQUEST. PT SITTING UP IN BED, WATCHING TELEVISION. PT AWARE OF PCU STATUS AND POSSIBLE TRANSFER IF BED BECOMES AVAILABLE.
--- NOTE | 2018-08-10 09:20 | NUR ---
RECEIVED REPORT FROM [facility] V[place], AND ASSUMED CARE OF PT.
--- NOTE | 2018-08-10 09:57 | NUR ---
NURSING SUMMARY ALERT, ORIENTED X 4, FORGETFUL. NSR ON MONITOR, HR 62, SBP ELEVATED TO 170'S, ON ROUTINE ANTI-HYPERTENSIVE THAT I WILL GIVE BETH. LUNGS DIMINISHED THROUGHOUT WITH EXPIRATOR WHEEZES PRIOR TO BREATHING TREATMENT, NO WHEEZING HEARD AFTERWARDS, 3L O2 NC, SATS 92-96%, DENIES SOB, SHALLOW BREATHS. INSTRUCTED RE: GI CONSULT. CALLED DR. MACIAS FOR GI CONSULT WHOM CALLED BACK AND TOLD ME THAT IT SHOULD BE DR. BARRON THAT IS CONSULTED. CALLED DR. BARRON'S ANSWERING SERVICE WHOM HAD DELIVERED THE CONSULT MESSAGE AT 0700. DR. BARRON CAME TO SEE PT AROUND 0830 AND WROTE ORDERS FOR PT TO NPO AFTER BREAKFAST FOR AN EGD PLANNED AROUND 1500. PATIENT INFORMED AND HER DAUGHTERS ARE AT THE BEDSIDE AND WERE INFORMED WELL. PT REFUSING TO DO MUCH FOR HERSELF. REFUSING TO GET OUT OF BED TO THE BEDSIDE COMMODE OR CHAIR. NOTED RIGHT FOOT DROP, DOPPLER PULSES.
--- NOTE | 2018-08-10 10:30 | NUR ---
DR. ZAIDI AT BEDSIDE FOR EVALUATION. NEW ORDERS PROVIDED.
--- NOTE | 2018-08-10 15:43 | NUR ---
GI CARE AT BEDSIDE TO PERFORM AN EGD.
--- NOTE | 2018-08-10 16:08 | NUR ---
08/10/18 1608 [place] 3-LEAD EKG REVIEWED WITH PHYSICIAN PRIOR TO START OF PROCEDURE. History, Chart, Medications and Allergies reviewed before start of procedure.MONITOR INTACT WITH CONTINUOUS PULSE OXIMETRY AND INTERMITTENT BP.O2 VIA N/C INTACT THROUGHOUT SEDATION/PROCEDURE. Bite Block Placed
--- NOTE | 2018-08-11 01:15 | NUR ---
PT REMAINS OFF BIPAP PER PT REQUEST-ON N/C 3L WITH SATS 96%. PT WATCHING TV. VSS. PT WITH NO COMPLAINTS. PT ACTUALLY SMILES AND PLEASANT WHEN ENTERING THE ROOM. CALL LIGHT IN HAND.
[2018-08-11 03:57] LABS: BASOPHILS ABSOLUTE AUTO 0.04 K/mm3 (0.00-0.23); BASOPHILS PERCENT AUTO 0 % (0-2); EOSINOPHILS ABSOLUTE AUTO 0.26 K/mm3 (0.00-0.68); EOSINOPHILS PERCENT AUTO 2 % (0-6); Hematocrit 28.9 % (33.0-51.0); Hemoglobin 8.8 g/dL (11.5-16.0); IMMATURE GRAN ABSOLUTE AUTO 0.06 K/mm3 (0.00-0.10); IMMATURE GRAN PERCENT AUTO 1 % (0-1); LYMPHOCYTES ABSOLUTE AUTO 1.57 K/mm3 (0.84-5.20); LYMPHOCYTES PERCENT AUTO 14 % (21-46); MONOCYTES ABSOLUTE AUTO 0.79 K/mm3 (0.16-1.47); MONOCYTES PERCENT AUTO 7 % (4-13); Mean Corpuscular HGB 27.7 pg (26.0-34.0); Mean Corpuscular HGB Conc 30.4 g/dL (31.5-36.5); Mean Corpuscular Volume 91 fL (80-100); Mean Platelet Volume 10.9 fL (9.1-12.4); NEUTROPHILS ABSOLUTE AUTO 8.73 K/mm3 (1.96-9.15); NEUTROPHILS PERCENT AUTO 76 % (41-73); Platelet Count 188 K/mm3 (150-400); RDW Coefficient Variation 15.6 % (11.7-14.2); RDW Standard Deviation 51.7 fL (35.1-46.3); Red Blood Cell Count 3.18 M/mm3 (3.80-5.20); White Blood Cell Count 11.45 K/mm3 (4.00-11.30)
[2018-08-11 04:16] LABS: Albumin, Blood 2.2 g/dL (3.4-5.0); Anion Gap 5 mmol/L (6-16); Blood Urea Nitrogen 46 mg/dL (8-24); Bun/Creatinine Ratio 40.7 (12.0-20.0); CO2, Blood 28 mmol/L (21-32); Calcium, Blood 7.9 mg/dL (8.5-10.1); Chloride, Blood 110 mmol/L (98-108); Creatinine, Blood 1.13 mg/dL (0.40-1.00); Glomerular Filtration Rate 49 (60-); Glucose, Blood 99 mg/dL (70-99); Phosphorus, Blood 2.9 mg/dL (2.5-4.9); Sodium, Blood 143 mmol/L (136-145)
--- NOTE | 2018-08-11 04:16 | NUR ---
PANIC EPISODE: AT APPRX 0320, PT FINALLY AGREED TO BE TURNED AFTER CATHETER CARE AND PANTUS/SKIN CARE. PT TURNED TO THE LEFT WITH PT ASSISTING MUCH POSSIBLE. PT BECAME SOB AND BECAME VERY ANXIOUS STATING, "OH, CLAYTON, I HATE THIS". PT WAS PLACED ON BIPAP. PT THEN REQUESTED LIGHTS OFF. PT CURRENLTY APPEARS TO BE RESTING WELL VSS. WILL CONTINUE TO MONITOR.
--- NOTE | 2018-08-11 06:31 | NUR ---
PT REFUSES BACK ASSESSMENT T/O NOC. PT STATED, THIS AM TO THIS RN AND BACTERIOLOGY TEACHER WHEN TURNING PT, "MY BACK IS FINE. I WILL TELL YOU WHEN THERE'S A PROBLEM". PT REPOSITIONED AND EXT ELEVATED X4. CALL LIGHT WITHIN REACH.
--- NOTE | 2018-08-11 11:47 | NUR ---
BEGINNING OF SHIFT Assumed care of pt at 0700. Report recieved from Olya SKELTON. Pt on and off BiPAP this am. Wears 3 LPM NC when not wearing BiPAP. Shift assessment completed. Lungs auscultated posteriorly by patient reaching to opposite side, freeing her back. Limited back assessment performed. Pt refused to work with physical therapy, stating "I'm too short of breath, maybe tomorrow." This RN asked the patient "What is going to change between and tomorrow?" Pt stated "I don't know'." This RN asked pt if she was willing to participate with physical therapy if she was given a few hours to wear the BiPAP and PT reapproached after lunch. Pt stated "I will try". Dr Colon in to see pt. Discussed pt's blood pressures with the provider. New orders to be entered. Pt okay to be medical floor status with telemetry per Dr Colon and Dr Carrington. Pt's daughter, Martina, called unit requesting update on patient. Pt gave verbal consent for this RN to provide an update.
--- NOTE | 2018-08-11 18:22 | NUR ---
SHIFT SUMMARY No acute chagnes t/o shift. Pt has requested to wear BiPAP for majority of day. Pt's breaks have been between 15 minutes - 1 hour. When pt requests BiPAP, she does not appear in distress. Bed in lowest position. Call light in reach. Will continue to closely monitor until care handoff and bedside report with oncoming RN.
--- NOTE | 2018-08-11 20:26 | NUR ---
PT REQUEST RT TO ROOM. PT REQUESTED TO BE PLACE BACK ON TO PREVIOUS BIPAP SETTINGS. RT EXPLAINED TO PT THAT THE PURPOSE OF THE LOWER SETTING BIPAP WAS FOR PLACEMENT LATER TO MEDICAL STATUS. PT STATED THAT SHE WILL NOT GO TO MEDICAL FLOOR BEING THIS SHORT OF BREATH. OFFBEARER SEWER PIPE TO STATION AND STATED IF PT ON THE PREVIOUS BIPAP SETTING THEN PT WILL HAVE TO BE CHANGED BACK TO PCU STATUS.
--- NOTE | 2018-08-12 00:13 | NUR ---
START OF SHIFT: AT APPROX 1999, PT C/O NEW BIPAP SETTINGS NOT WORKING AND THAT PT REMAINING SOB. PT REQUESTED RT TO BEDSIDE AND WAS PLACE ON PREVIOUS BIPAP SETTINGS. PT WAS RETURNED TO PCU STATUS. PT HAD BM AT START OF SHIFT AND WAS ASSISTED BY WOOD VENEER TAPER WHO CAME TO THIS RN TO REPORT PT HAVING A HARD TIME BREATHING. UPON ENTERING PT'S ROOM PT WITH SAME PRESENTATION NIGHT BEFORE (SATS 96-97% ON N/C). RT NOTIFIED AT THAT TIME. PT LATER REFUSED ORAL CARE, STATED, "I'LL DO IT IN THE MORNING AGAIN". PT WITH CALL LIGHT IN HAND AND USES APPROPRIATELY. WILL CONTINUE TO MONITOR.
--- NOTE | 2018-08-12 02:09 | NUR ---
TO PT'S ROOM WHEN BIPAP ALARM SOUNDING. PT STATED WAS TRYING TO ADJUST BIPAP MASK BUT COULDN'T UNDO THE STRAPS. BIPAP ADJUSTED AND PLACED BAKC ON. PT WRIGGLING IN BED BUT STATED, "NO" TO BEING TURNED. PT REPOSITIONED EARLIER IN SHIFT AND PADS STRAIGHTENED AFTER USING BEDPAN. PANUS DUSTED WITH NYSTATIN WHEN SCHEDULED AND PRN PT REQUEST. EXT X4 ELEVATED ON PILLOWS. PT STATED, "I NEED TO TALK TO RESP. THERAPY TOMORROW. I GET SOB JUST TRYING TO EAT MY DINNER". NOTED WAS PT AND OT ORDERED. WILL PASS ONTO DAY RN. WILL CONTINUE TO MONITOR.
[2018-08-12 04:31] LABS: BASOPHILS ABSOLUTE AUTO 0.04 K/mm3 (0.00-0.23); BASOPHILS PERCENT AUTO 0 % (0-2); EOSINOPHILS ABSOLUTE AUTO 0.41 K/mm3 (0.00-0.68); EOSINOPHILS PERCENT AUTO 4 % (0-6); Hematocrit 31.8 % (33.0-51.0); Hemoglobin 9.5 g/dL (11.5-16.0); IMMATURE GRAN PERCENT AUTO 1 % (0-1); LYMPHOCYTES PERCENT AUTO 19 % (21-46); MONOCYTES ABSOLUTE AUTO 0.78 K/mm3 (0.16-1.47); MONOCYTES PERCENT AUTO 7 % (4-13); Mean Corpuscular HGB 27.5 pg (26.0-34.0); Mean Corpuscular HGB Conc 29.9 g/dL (31.5-36.5); Mean Corpuscular Volume 92 fL (80-100); Mean Platelet Volume 10.3 fL (9.1-12.4); NEUTROPHILS ABSOLUTE AUTO 7.74 K/mm3 (1.96-9.15); NEUTROPHILS PERCENT AUTO 69 % (41-73); Platelet Count 228 K/mm3 (150-400); RDW Coefficient Variation 15.1 % (11.7-14.2); RDW Standard Deviation 50.7 fL (35.1-46.3); Red Blood Cell Count 3.46 M/mm3 (3.80-5.20); White Blood Cell Count 11.17 K/mm3 (4.00-11.30)
[2018-08-12 04:47] LABS: Albumin, Blood 2.2 g/dL (3.4-5.0); Anion Gap 5 mmol/L (6-16); Blood Urea Nitrogen 28 mg/dL (8-24); Bun/Creatinine Ratio 29.6 (12.0-20.0); CO2, Blood 31 mmol/L (21-32); Calcium, Blood 8.2 mg/dL (8.5-10.1); Chloride, Blood 108 mmol/L (98-108); Creatinine, Blood 0.95 mg/dL (0.40-1.00); Glomerular Filtration Rate >60 (60-); Glucose, Blood 82 mg/dL (70-99); Phosphorus, Blood 2.6 mg/dL (2.5-4.9); Potassium, Blood 4.7 mmol/L (3.5-5.5); Sodium, Blood 144 mmol/L (136-145)
--- NOTE | 2018-08-12 04:50 | NUR ---
PT AWAKENED SUDDENLY AT APPRX 0400 WANTING HER BIPAP OFF C/O SOB. PT CALMED AFTER AWAKING FULLY. PT C/O, "WHY AM I SO SHORT OF BREATH?". VITALS TAKEN, PT HYPERTENSIVE. HYDRALAZINE GIVEN. PT INFORMED TO FULL BACK ASSESSMENT NOT DONE TODAY AND NEED TO ASSESS. PT ALSO INFORMED OF PT AND OT ASSESSMENT TODAY. PT SHOOK HEAD AND ASKED TO SEE FAMILY DINNER SERVICE SPECIALIST. FAMILY DINNER SERVICE SPECIALIST CALLED. PT REQUESTED BIPAP TO BE PLACED PRIOR TO BUSINESS PLANNING DIRECTOR VISIT AND DIDN'T WANT IT OFF WHILE BUSINESS PLANNING DIRECTOR AT BEDSIDE. PT THEN REQUESTED BREATHING TREATMENT. LS WITH SLIGHT EXP WHEEZE TO RML AND ONLY SLIGHTLY COARSE TO BILAT UPPER. RT TO BEDSIDE. PT AGREED TO GETTING TURNED WITH THREE-PERSON ASSIST TO HOPEFULLY NOT STRESS PT TO PANIC D/T SOB. WILL TURN AFTER RECIEVES BREATHING TREATMENT.
--- NOTE | 2018-08-12 05:17 | NUR ---
PT TURNED WITH 4-PERSON ASSIST. PT TOLERATED THIS BETTER THAN ASSISTING WITH TURNING SELF BUT PT FEARFUL OF FALLING AND JUMPS WHEN POSITION OF BED MADE. PT SEEMS TO HAVE INCREASED ANXIETY WITH REPOSITIONING BUT, AGAIN, TOLERATED WELL WITH MORE ASSIST AND ENCOURAGEMENT FROM STAFF WHILE TURNING. SKIN, PT'S SKIN TO BACK WITH NO REDESS OR SORENESS. MAGEN CARE PROVIDED. CREAM APPLIED TO ANAL AREA FOR COMFORT. DUFFY CHANGED AND BACK WASHED. CATH CARE PROVIDED WITH NYSTATIN POWDER REAPPLIED. PT FALLING ASLEEP AFTERWARDS.
--- NOTE | 2018-08-12 05:23 | NUR ---
PALLIATIVE CARE ORDER OF 08/11 NOTED.
--- NOTE | 2018-08-12 07:30 | NUR ---
ASSUMED CARE OF PATIENT; SEE ASSESSMENT CHARTING FOR DETAILS. PATIENT AROUSED FROM SLEEP; C/O SORENESS TO L LAT RIB AREA (STATES SHE HAS SOME COMPRESSION FX'S). DRIFTS OFF TO SLEEP WHEN NOT DISTURBED. LUNGS CLEAR BUT DIMINSHED IN BASES; OXYGEN AT 2L/MIN VIA NC; BIOX 95+%. APPETITE ADEQUATE; TAKING FLUIDS WELL; NO GI UPSET. MANNING DRAINING MODERATE AMOUNTS OF STRAW COLORED URINE. PICC LINE TO CARLO INTACT; TRIPLE LUMEN. REMAINS ON IVAB TX; AFEBRILE AT THIS TIME.
--- NOTE | 2018-08-12 09:30 | NUR ---
ERIK Mckoy, KOFFI; RN ASSISTED THERAPIST TO TRANSFER PATIENT FROM BED TO RECLINER VIA CEILING LIFT; TOLERATED WELL. OXYGEN REMOVED FOR TRANSFER AND PATIENTS' BIOX STAYING IN MID 90'S. THERAPIST WORKED ON EXERCISES OF LE'S ETC; SEE THERAPY NOTES.
--- NOTE | 2018-08-12 11:45 | NUR ---
DR. ZAIDI, ([place]), HERE; SPOKE TO PATIENT AND DAUGHTERS RE: POTENTIAL D/C HOME TOMORROW; PATIENT BECAME VERY ANXIOUS AND STATED SHE WON'T BE READY TO GO HOME TOMORROW AND IF SHE REQUIRES ASSIST. AT NIGHT WITH BREATHING/APNEA CONCERNS SHE KNOWS HER DAUGHTER WILL REQUIRE INSTRUCTION (HAS NO MEDICAL BACK-GROUND).
--- NOTE | 2018-08-12 13:00 | NUR ---
DR. HERNANDEZ HERE; SEE ORDERS. PORT CXR ORDERED AND PHYSICIAN WANTS D/C GATE WATCH TO LOOK INTO WHAT REQUIREMENTS NEEDED FOR PATIENT TO QUALIFY FOR TRILOGY; D/C GATE WATCH WILL CHECK WITH [facility] AND OTHER DME/SUPPLIERS.
--- NOTE | 2018-08-12 14:00 | NUR ---
PORT. CXR DONE.
--- NOTE | 2018-08-12 14:15 | NUR ---
O.T. HERE TO WORK WITH PATIENT; SEE THERAPY NOTES.
--- NOTE | 2018-08-12 15:45 | NUR ---
FEBRILE; TEMP. UP TO 101.3; ROOM TEMP. REDUCED AND BLANKETS REMOVED; PATIENT SOMEWHAT CHILLED/SHAKY.
--- NOTE | 2018-08-12 18:00 | NUR ---
SUMMARY: APPETITE GOOD; ASSIST WITH MEAL PREP. BUT FEEDS SELF AND ASSISTS WITH TURNS. ATIVAN 0.5MG PO FOR ANXIETY/GENERALIZED DISCOMFORT; ALLOWED PATIENT TO NAP THIS AFTERNOON. TOLERATING OFF OXYGEN BUT REQUIRES BIPAP WHEN SLEEP; BIOX DROPS AND RATE DROPS. 1690 U.O. VIA MANNING CATH. MONITOR REMAINS NSR BP LABILE; DEPENDENT ON ACITIVITY/ANXIETY.
--- NOTE | 2018-08-12 18:30 | NUR ---
ON/OFF BEDPAN; HARD STOOL; CONTINENT. REFUSED STOOL SOFTENERS AND MIRALAX THIS AM. SKIN FEELING COOLER AND PATIENT NO LONGER SHAKY OR CHILLED. WILL REPORT TO ONCOMING RN.
--- NOTE | 2018-08-12 20:00 | NUR ---
ASSUMED CARE BEDSIDE REPORT RECIEVED. PT IS RESTING QUIETLY. PT AROUSES TO VERBAL STIMULI EASILY. PT IS ALERT AND ORIENTED WHEN AWAKE. PT CURRENTLY WEARING BIPAP AT 25% FIO2. PT TOLERATES BREAKS FROM BIPAP WELL. PT DENIES PAIN OR DISCOMFORT. VITAL SIGNS STABLE. PICC TO CARLO C/D/I, SALINE LOCKED. RIGHT RADIAL ACCESS SITE C/D/I. MANNING IN PLACE WITH YELLOW OUTPUT NOTED. WILL CONTINUE TO MONITOR.
--- NOTE | 2018-08-13 06:02 | NUR ---
SHIFT SUMMARY NO ACUTE CHANGES THIS SHIFT. PT HAS SLEPT OFF AND ON THROUGHOUT THE SHIFT. PT HAS REMAINED ON BIPAP THROUGHOUT MOST OF THE NIGHT WITH FREQUENT BREAKS FOR SIPS OF WATER. PT TOLERATES RA WELL WHEN OFF BIPAP AND AWAKE. PT STATES SHE FEELS SOB, BUT SPO2 REMAINS GREATER THAN 92%. VITAL SIGNS STABLE. PICC TO CARLO SALINE LOCKED. MANNING IN PLACE WITH GOOD URINE OUTPUT. WILL CONTINUE TO MONITOR AND REPORT OFF TO ONCOMING RN.
--- NOTE | 2018-08-13 07:30 | NUR ---
ASSUMED CARE OF PATIENT; SEE ASSESSMENT CHARTING FOR DETAILS. PATIENT SLEEPY AND REMAINS ON BIPAP WITH FIO2 25%. LUNGS WITH AUDIBLE WHEEZES; REDUCE WITH COUGHING AND DEEP BREATHING. MANNING DRAINING FAIR AMOUNTS OF MED. YELLOW URINE. AM CARE DONE AND RN PLACED NC AT 2L/MIN AND REMOVED BIPAP FOR BREAKFAST. PATIENT WITH GOOD APPETITE AND NO GI UPSET. OVERALL STATUS UNCHANGED; AFEBRILE AT THIS TIME.
--- NOTE | 2018-08-13 09:00 | NUR ---
BECOMING ANXIOUS AND STATES SHE DOESN'T FEEL GOOD. BIOX. 98% AND HR STABLE. ATIVAN 0.5MG GIVEN PO TO HELP PATIENT CALM. PLACED BACK ON BIPAP MACHINE.
--- NOTE | 2018-08-13 10:00 | NUR ---
SLEEPING AFTER REPOSITIONED ONTO L SIDE.
--- NOTE | 2018-08-13 12:15 | NUR ---
DR. ZAIDI ([place]) HERE; NO NEW CHANGES.
--- NOTE | 2018-08-13 16:30 | NUR ---
SBP OVER 200; RECHECKED; APRESOLINE 20MG IV: BP DROPPED INTO 150'S. PATIENT REMAINS ON BIPAP. TO TRANSFER TO PCU, ROOM 8, AFTER DINNER. HAS BEEN PCU STATUS FOR SEVERAL DAYS.
--- NOTE | 2018-08-13 16:50 | NUR ---
T/C TO PCU TO GIVE REPORT ON PATIENT; SPOKE TO RADHA (CHARGE NURSE) WHO STATES [facility] WILL BE THE NURSE CARING FOR PATIENT AND SHE WILL HAVE HER CALL.
--- NOTE | 2018-08-13 17:15 | NUR ---
REPORT GIVEN TO KVNG DIETRICH RN.
--- NOTE | 2018-08-13 18:15 | NUR ---
TRANSFERRED TO ROOM PCU 8, VIA BED, WITH OXYGEN AT 2L/MIN VIA NC. BIPAP TAKEN OVER TO PCU ABOUT 10/MIN. EARLIER, FOR PATIENT. BELONGINGS, MEDS, CHART WITH PATIENT. WHEEZY AND ANXIOUS BUT BIOX. STABLE; CALMED DOWN AFTER SITUATED IN NEW BED AND PLACED BACK ON BIPAP MACHINE.
--- NOTE | 2018-08-13 18:43 | NUR ---
Assumed Care: Assumed care of pt at approx 1815. VSS. In no apparent sign of distress. Pt placed on BiPAP once transferred to new bed. Report received from DRIVE THRU ORDER TAKER. Pt currently resting in bed with call light within reach. Denies any further questions, complaints or requests at this time. Will continue to monitor until report is given to bladimir SKELTON.
--- NOTE | 2018-08-13 21:23 | NUR ---
ASSUMED CARE OF PATIENT AT APPROXIMATELY 1910 FROM [facility] [place] RN. PATIENT ALERT AND ORIENTED X4. PATIENT DENIES PAIN BUT REPORTS PAIN IN RIGHT FOOT D/T FOOT DROP AND PAIN IN RIGHT WRIST AT TIMES. PATIENT HAS NUMBNESS IN BLE. PATIENT DENIES TINGLING, DIZZINESS AND NAUSEA. NSR ON TELE; OXYGEN SATURATION ABOVE 90% ON 0-2LPM NC (REPORTED BASELINE FOR PATIENT) OR ON BIPAP (VT 40 EPAP 10). PATIENT'S RESPIRATORY RATE INCREASES UP TO 30 WITH ACTIVITY SUCH TURNING IN BED; PATIENT HAS NOT AMBULATED SINCE SHIFT CHANGE. CHRONIC CATHETER DRAINING SMALL AMOUNTS OF MERLY COLORED URINE. PATIENT WILL BE REPOSISTIONED FREQUENTLY. PICC S/L CARLO. PATIENT CURRENTLY SLEEPING IN BED; CALL LIGHT IN REACH; BED IN LOWEST POSISTIO; BED ALARM ON; WILL CONTINUE TO MONITOR AND ASSESS UNTIL END OF SHIFT.
--- NOTE | 2018-08-14 06:43 | NUR ---
PATIENT SLEPT ABOUT EIGHT HOURS LAST NIGHT; SWITCHED FROM BIPAP TO 1LPM ALL NIGHT; TURNED FREQUENTLY. VSS. WILL CONTINUE TO MONITOR AND ASSESS UNTIL END OF SHIFT.
--- NOTE | 2018-08-14 16:52 | NUR ---
Assumed Care: Assumed care of pt at approx 0700. VSS. In no apparent sign of distress. Pt is A&Ox4. Calls appropriately. Denies any pain. Pt assists with repositioning. See shift assessment for detailed assessment. Pt on NC at this time and is tolerating well. Dr. Carrington and Dr. Colon in to see pt today, and plan is to transfer pt to medical floor once bed is available on M-series BiPAP per Dr. Colon if pt tolerates M-series BiPAP well. Discharge planning working on arranging BiPAP for home. Pt currently resting in bed with call light within reach. Denies any further questions, complaints or requests at this time. Will continue to monitor.
--- NOTE | 2018-08-14 19:35 | NUR ---
Shift Summary No acute changes since initial shift assessment. VSS. In no apparent sign of distress. Pt has remained A&Ox4. Calls appropriately and assists with repositioning. Pt has tolerated the M-series BiPAP well and has otherwise been on 1-2L t/o the shift. No acute events on tele prior to dc tele. Pt has not had any other acute events t/o the shift. Denies pain. Currently resting in bed with call light within reach. Denies any further questions, complaints or requests at this time. Report given to bladimir SKELTON.
--- NOTE | 2018-08-14 23:00 | NUR ---
ASSUMED CARE OF PATIENT AT APPROXIMATELY 1915 FROM [facility] Morataya RN. PATIENT ALERT AND ORIENTED X4. PATIENT DENIES PAIN BUT REPORTS PAIN IN RIGHT FOOT D/T FOOT DROP AND PAIN IN RIGHT WRIST AT TIMES. PATIENT HAS N/T IN BLE. PATIENT DENIES TINGLING, DIZZINESS AND NAUSEA. OXYGEN SATURATION ABOVE 90% ON 1LPM NC (REPORTED BASELINE FOR PATIENT) OR ON M-SERIES. PATIENT MEDICAL NO TELE STATUS. PATIENT'S RESPIRATORY RATE INCREASES UP TO 30 WITH ACTIVITY SUCH TURNING IN BED; PATIENT HAS NOT AMBULATED SINCE SHIFT CHANGE. CHRONIC CATHETER DRAINING SMALL AMOUNTS OF MERLY COLORED URINE. PICC S/L CARLO. PATIENT CURRENTLY SLEEPING IN BED; CALL LIGHT IN REACH; BED IN LOWEST POSISTION; BED ALARM ON; WILL CONTINUE TO MONITOR AND ASSESS UNTIL END OF SHIFT.
--- NOTE | 2018-08-15 06:23 | NUR ---
NO ACUTE CHANGES TO REPORT. PATIENT SLEPT ABOUT EIGHT HOURS LAST NIGHT. MEPILEX APPLIED TO COCCYX PER PATIETN REQUEST; PATIENT REPORTS A "CRACK" IN HER BUTT. VSS. WILL CONTINUE TO MONITOR AND ASSESS UNTIL END OF SHIFT.
--- NOTE | 2018-08-15 16:49 | NUR ---
SPOKE TO DR MEJIA ABOUT PT SBP 216. GAVE NEW IMDUR DOSE SHOULD PT RECIEVE 20 MG IV HYDRALAZINE NOW? NEW ORDER FOR CLONIDINE 0.1MG NOW, PER DR VASQUEZ DON'T GIVE THE HYDRALIZINE AT THIS TIME.
--- NOTE | 2018-08-15 19:36 | NUR ---
SHIFT SUMMARY- PT HAS BEEN HAVING HIGH BPS TODAY, SPOKE TO DR BARONE ABOUT HTN. MEDS WERE CHANGED, SEE EMAR FOR DETAILS. PT WAS PLACED BACK ON TELE D/T CARDIAC MED CHANGES. PT DENIES PAIN, BUT RIGHT FOOT IS PAINFUL TO THE TOUCH. PT USED THE BIPAP DURRING HER NAP TODAY AND IT SEEMED TO HELP HER BREATHING AND RESTFULLNESS. PT ALERT AND ORIENTED CALL LIGHT IN REACH, HAD A BM TODAY REFUSED MIRALAX AND COLACE.
[2018-08-16 03:36] LABS: BASOPHILS ABSOLUTE AUTO 0.04 K/mm3 (0.00-0.23); BASOPHILS PERCENT AUTO 0 % (0-2); EOSINOPHILS ABSOLUTE AUTO 0.45 K/mm3 (0.00-0.68); EOSINOPHILS PERCENT AUTO 4 % (0-6); Hematocrit 26.4 % (33.0-51.0); Hemoglobin 7.7 g/dL (11.5-16.0); IMMATURE GRAN PERCENT AUTO 1 % (0-1); LYMPHOCYTES ABSOLUTE AUTO 1.95 K/mm3 (0.84-5.20); LYMPHOCYTES PERCENT AUTO 19 % (21-46); MONOCYTES ABSOLUTE AUTO 0.65 K/mm3 (0.16-1.47); MONOCYTES PERCENT AUTO 6 % (4-13); Mean Corpuscular HGB 27.4 pg (26.0-34.0); Mean Corpuscular HGB Conc 29.2 g/dL (31.5-36.5); Mean Corpuscular Volume 94 fL (80-100); Mean Platelet Volume 9.8 fL (9.1-12.4); NEUTROPHILS ABSOLUTE AUTO 7.12 K/mm3 (1.96-9.15); NEUTROPHILS PERCENT AUTO 69 % (41-73); Platelet Count 263 K/mm3 (150-400); RDW Standard Deviation 52.1 fL (35.1-46.3); Red Blood Cell Count 2.81 M/mm3 (3.80-5.20); White Blood Cell Count 10.31 K/mm3 (4.00-11.30)
[2018-08-16 03:53] LABS: Albumin, Blood 2.2 g/dL (3.4-5.0); Albumin/Globulin Ratio 0.8 (0.8-1.8); Bilirubin, Total 0.2 mg/dL (0.1-1.0); Bun/Creatinine Ratio 24.2 (12.0-20.0); Calcium, Blood 8.1 mg/dL (8.5-10.1); Creatinine, Blood 1.24 mg/dL (0.40-1.00); Globulin, Blood 2.8 g/dL (2.2-4.0); Magnesium, Blood 2.1 mg/dL (1.6-2.4); Phosphorus, Blood 3.7 mg/dL (2.5-4.9)
[2018-08-16 05:18] LABS: PCO2 Arterial 47.6 mmHg (35-45); pH Blood Arterial 7.41 (7.35-7.45)
--- NOTE | 2018-08-16 06:17 | NUR ---
SHIFT SUMMARY PT ALERT AND ORIENTED. BP ELEVATED THROUGHOUT SHIFT, BUT IMPROVED SEE VS. O2 SATS HAVE REMAINED ABOVE 92% ON 1.5L VIA NC. HR HAS BEEN NSR/ SB. RATE WENT LOW 45 SEE FRONT OF CHART FOR STRIP. PT ASYMPTOMATIC. HR CURRENTLY IN THE MID 50'S. PT RESTED MOST OF SHIFT ON BIPAP WITH 2L BLEED IN. PT DENIES ANY PAIN, BUT RIGHT FOOT IS PAINFUL TO THE TOUCH. DR DAN CALLED THIS AM DUE TO HGB OF 7.7. NEW ORDERS FOR 1U PRBC PROVIDED. NO OTHER CHANGES AT THIS TIME. WILL CONTINUE TO MONITOR AND REPORT TO ONCOMING RN. CALL LIGHT IN REACH.
--- NOTE | 2018-08-16 12:21 | NUR ---
PATIENT RECEIVED ONE UNIT PRBC THIS SHIFT, TOLERATED WELL. SHE IS SATING IN THE MID TO HIGH 90'S ON 2 L NS . COMPLAINS OF SOB, NURSE ELEVATED HER HEAD TO ASSIST WITH BREATHING. SHE HAS NO OTHER COMPLAINTS AT THIS TIME. STOOL SAMPLE TAKEN AND SENT TO LAB. PATIENTS DAUGHTER WAS CONCERNED ABOUT PATIENT BEING SENT HOME TODAY. SHE WAS INFOMRED OF PATIENT BEING TRANSFERRED TO MEDICAL. PATIENT IS CHAIRFAST AND HAS NOT BEEN OUT OF BED THIS SHIFT. PT TO TREAT BUT PATIENT WAS TOO TIRED AT THE TIME THEY CAME , SAID THEY WOULD RESCHEUDLE WHEN PATIENT WAS MORE AWAKE.
[2018-08-16 13:01] LABS: Stool Occult Blood Guaiac 1 Neg (Neg)
--- NOTE | 2018-08-16 14:27 | NUR ---
PATIENT ARRIVES FROM PCU VIA CART AT ABOUT 1400. LUNGS CLEAR EXCEPT RT LOWER DIMINISHED. ANTI-EMBOLITIC STOCKINGS ORDERED AND PATIENT STS REFUSED. AWARE. MD ALSO AWARE OF HEART RATE 40'S. LOPRESSOR AND CATAPRES NOT TO BE GIVEN IF HEART RATE LESS THAN 60. DRY FLAKEY SKIN BLE. RT FOOT DROP WITH FOOT BEING TENDER TO TOUCH. LEFT FOOT WITH HEEL PROTECTOR ON.BRUISING TO RT RADIAL STENT SITE W/OPSITE ON. BRUISING TO RT FEMORAL STENT SITE W/NO DRESSING. RED TO RT ABD PANUS W/REST OF FOLDS VERY FAINT REDNESS. OXYGEN WAS BUMPED TO 3 LPM WHEN HOOKED UP. PER RN PCU, DAUGHTER AWARE PATIENT MOVED. SEE MY EVAL UNDER ASSESSMENT. BED IN LOW POSITION. CALL LIGHT WITHIN REACH. ORIENTED TO MED FLOOR ROOM. TELE ON. WILL CONTINUE TO MONITOR.
--- NOTE | 2018-08-17 04:13 | NUR ---
NOC SHIFT SUMMARY PT HAS BEEN PLEASANT AND COOPERATIVE WITH CARE THIS NIGHT. HER SYSTOLIC BP DID INCREASTO TO 197 THIS NIGHT BUT LOWERED TO 161 AFTER EVENING BP MEDS WERE GIVEN. BP WAS RECHECKED AT 0243 AND GRACIA STILL 161/49. PT COMPLAINED OF BACK PAIN LATER IN THE NIGHT FOR WHICH TRAMADOL WAS GIVEN AND PT WAS ABLE TO SLEEP. RESP EVEN AND UNLABORED. WEARING BIPAP WITH 2L O2. APPEARS IN NO ACUTE DISTRESS AT THIS TIME. WILL CONTINUE TO MONITOR.
--- NOTE | 2018-08-17 13:36 | NUR ---
Met pt lying in bed resting,pt is said to be doing much better encouraged pt.and offered some prayers.
--- NOTE | 2018-08-17 18:18 | NUR ---
PATIENT ALERT AND ORIENTED. STOOD FOR P.T. AND WHEN RN TOLD PATIENT WE WILL GET HER UP AND PIVOT TO BSC WHEN NEEDED PATIENT WAS AGREEABLE. WHEN PATIENT NEEDED TO HAVE B.M X 2 REFUSED BSC AND REQUESTED BED MOFFETT. PATIENT HAD GAS BOTH TIMES. USES BIPAP T/O DAY W/2 LPM OXYGEN BLEEDING IN; OTHERWISE, ON 2 LPM OXYGEN VIA N/C. NO ACUTE CHANGES. TELE ON AND CURRENTLY SB AT 59. WILL CONTINUE TO MONITOR.
[2018-08-18 05:12] LABS: BASOPHILS ABSOLUTE AUTO 0.04 K/mm3 (0.00-0.23); BASOPHILS PERCENT AUTO 0 % (0-2); EOSINOPHILS ABSOLUTE AUTO 0.39 K/mm3 (0.00-0.68); EOSINOPHILS PERCENT AUTO 4 % (0-6); Hematocrit 30.6 % (33.0-51.0); IMMATURE GRAN PERCENT AUTO 1 % (0-1); LYMPHOCYTES ABSOLUTE AUTO 1.84 K/mm3 (0.84-5.20); LYMPHOCYTES PERCENT AUTO 19 % (21-46); MONOCYTES ABSOLUTE AUTO 0.52 K/mm3 (0.16-1.47); MONOCYTES PERCENT AUTO 5 % (4-13); Mean Corpuscular HGB 27.2 pg (26.0-34.0); Mean Corpuscular HGB Conc 29.4 g/dL (31.5-36.5); Mean Corpuscular Volume 92 fL (80-100); Mean Platelet Volume 9.9 fL (9.1-12.4); NEUTROPHILS ABSOLUTE AUTO 6.93 K/mm3 (1.96-9.15); NEUTROPHILS PERCENT AUTO 71 % (41-73); Platelet Count 306 K/mm3 (150-400); RDW Coefficient Variation 15.4 % (11.7-14.2); RDW Standard Deviation 52.4 fL (35.1-46.3); Red Blood Cell Count 3.31 M/mm3 (3.80-5.20); White Blood Cell Count 9.82 K/mm3 (4.00-11.30)
[2018-08-18 06:04] LABS: Albumin, Blood 2.5 g/dL (3.4-5.0); Albumin/Globulin Ratio 0.8 (0.8-1.8); Bilirubin, Total 0.3 mg/dL (0.1-1.0); Bun/Creatinine Ratio 27.5 (12.0-20.0); Calcium, Blood 8.8 mg/dL (8.5-10.1); Creatinine, Blood 1.02 mg/dL (0.40-1.00); Globulin, Blood 3.2 g/dL (2.2-4.0); Potassium, Blood 4.6 mmol/L (3.5-5.5); Total Protein, Blood 5.7 g/dL (6.4-8.2)
--- NOTE | 2018-08-18 06:21 | NUR ---
SHIFT SUMMARY PT SLEPT WELL T/O NIGHT. AOX4. VSS. PT DENIES N/V OR PAIN. REPORTED SOB & WAS GIVEN BREATHING TX PER ORDERS. LUNGS HAVE EXPIRATORY WHEEZE T/O. CONTINUOUS PULSE OX IS ON @ SPO2 HAS BEEN >90% ON 2L NC T/O NIGHT. PT WORE BIPAP WHILE ASLEEP. NIGEL IS PATENT & DRAINING CLEAR YELLOW URINE. CALL LIGHT IS IN REACH & I WILL CONT TO MONITOR PT.
--- NOTE | 2018-08-18 13:15 | NUR ---
Pt. is lying in bed resting and is much better , prayed for her .
--- NOTE | 2018-08-18 14:15 | NUR ---
RECEIVEID CALLED FROM PCU WET PROCESS MILLER HEAD THAT PT HR IS 38. PT REPORTS FEELING SOB, VSS. NOTIFIED DR CHRISTINA DR TO INPUT ORDERS AND TO CONTINUE MONITORING PATIENT.
--- NOTE | 2018-08-18 15:11 | NUR ---
TELE NOTIFIED THIS RN THAT PT RHYTHM NO LONGER SHOWING P WAVES. NOTIFED DR VASQUEZ, NEW ORDERS FOR EKG, NOTIFIED OF RESULTS. NEW ORDERS FOR TRANSFER FROM PCU AND ATROPINE 1MG IV FOR AT BEDSIDE. NOTIFED GRADE TAMPER FOR PCU BED. WILL CONTINUE TO MONITOR UNTIL TRANSFERED TO PCU.
--- NOTE | 2018-08-18 15:40 | NUR ---
reprot given to Rosi Rowan RN in PCU. PT transfered to [id number].
--- NOTE | 2018-08-18 16:21 | NUR ---
Arrival: Pt arrived to PCU at approx 1325. VSS. In no apparent sign of distress. Pt transferred to PCU d/t junctional rhythm w/HR int he upper 30's. Called Dr. Grissom for update, and received order to have atropine at bedside but not administer at this time with known HR in the 30's. Believes that bradycardia is d/t side effect of combiniation of cardiac meds received. Pt is otherwise asymptomatic of bradycardia at this time. Atropine available in pt locked drawer. Pt currently resting in bed with call light within reach. Deneis any further questions, complaints or requests at this time. Dr. Grissom denies need to notify cardiology of bradycardia at this time. Will continue to neel.
--- NOTE | 2018-08-18 18:00 | NUR ---
Shift Summary No acute changes since arrival to PCU. HR has increased to the mid 40's. VSS. In no apparent sign of distress and pt has remained asymptomatic of bradycardia. Pt has been repositioned Q2H. Calls appropriatley. Pt has remained on 4L O2 NC since arriving to unit and has worn M-series BiPAP intermittently. Pt is currently resting in bed with call light within reach. Denies any further questions, complaints or requests at this time. Will continue to montior until report is given to bldaimir SKELTON.
[2018-08-19 04:17] LABS: BASOPHILS ABSOLUTE AUTO 0.05 K/mm3 (0.00-0.23); BASOPHILS PERCENT AUTO 0 % (0-2); EOSINOPHILS ABSOLUTE AUTO 0.35 K/mm3 (0.00-0.68); EOSINOPHILS PERCENT AUTO 3 % (0-6); Hematocrit 28.7 % (33.0-51.0); Hemoglobin 8.5 g/dL (11.5-16.0); IMMATURE GRAN PERCENT AUTO 1 % (0-1); LYMPHOCYTES ABSOLUTE AUTO 2.37 K/mm3 (0.84-5.20); LYMPHOCYTES PERCENT AUTO 21 % (21-46); MONOCYTES ABSOLUTE AUTO 0.57 K/mm3 (0.16-1.47); MONOCYTES PERCENT AUTO 5 % (4-13); Mean Corpuscular HGB 27.6 pg (26.0-34.0); Mean Corpuscular HGB Conc 29.6 g/dL (31.5-36.5); Mean Corpuscular Volume 93 fL (80-100); Mean Platelet Volume 9.9 fL (9.1-12.4); NEUTROPHILS ABSOLUTE AUTO 8.01 K/mm3 (1.96-9.15); NEUTROPHILS PERCENT AUTO 70 % (41-73); Platelet Count 274 K/mm3 (150-400); RDW Coefficient Variation 15.4 % (11.7-14.2); RDW Standard Deviation 52.7 fL (35.1-46.3); Red Blood Cell Count 3.08 M/mm3 (3.80-5.20); White Blood Cell Count 11.45 K/mm3 (4.00-11.30)
[2018-08-19 04:35] LABS: Bun/Creatinine Ratio 20.3 (12.0-20.0); Calcium, Blood 8.4 mg/dL (8.5-10.1); Creatinine, Blood 1.82 mg/dL (0.40-1.00); Potassium, Blood 5.5 mmol/L (3.5-5.5)
--- NOTE | 2018-08-19 05:49 | NUR ---
SHIFT SUMMARY PATIENT ALERT AND ORIENTED X 3 THROUGHOUT SHIFT. SHE SLEPT WELL AND REMAINED PLEASANT AND COOPERATIVE WITH VITALS AND ASSESSMENTS. PT WORE HER BIPAP WITHOUT ISSUE AND HER SATS AND VITALS REMAINED STABLE. SHE HAD NO ACUTE CHANGES TO VITALS OR LOC. HER HEART RATE REMAINED IN THE THIRTIES BUT SHE HAD NO SYMPTOMS. ATROPINE REMAINED AT BEDSIDE IN CASE SYMPTOMS DEVELOPED. PT DENIED ANY UNMET NEEDS AND WAS ABLE TO APPROPRIATELY USE HER CALL LIGHT. PT REMAINED IN BED AND WAS ABLE TO ASSIST STAFF WITH TURNS Q2 HOURS. PT HAS 3X BED RAILS IN PLACE, BED IN LOW POSITION AND CALL LIGHT IN REACH. SHE WILL CONTINUE TO BE MONITORED UNTIL HANDOFF TO DAYSHIFT RN.
--- NOTE | 2018-08-19 11:28 | NUR ---
Met pt . lying in bed resting , pt. repots doing much better, encouraged pt. and prayed for the pt.
--- NOTE | 2018-08-19 11:54 | NUR ---
Assumed Care: Assumed care of pt at approx 0700. VSS. In no apparent sign of distress. Pt is A&Ox4. Calls appropriately and assists with repositioning. Pt c/o some mild pain to BLE that is improved with repositioning. See shift assessment for detailed assessment. Pt titrated down on O2 to 3L NC by RT this AM. Dr. Cobb in to see pt this AM and instructed to DC clonidine and hold metoprolol until the pt HR sustains >60 then to administer the metoprolol that she has ordered. Pt is asymptomatic of bradycardia at this time. Pt is currently resting in bed with call light within reach. Denies any further questions, complaints or requests at this time. Will continue to monitor.
--- NOTE | 2018-08-19 19:52 | NUR ---
Shift Summary Pt is currently resting in bed with call light within reach. Pt has assisted with repositioning approx Q2H t/o the shift. VSS. In no apparent sign of distress. Pt has remained A&Ox4. C/o some mild pain in BLE. Pt has been on 3L O2 for most of the day. Denies any other complaints or request t/o the shift. No acute events on tele. Pt is currently resting in bed with call light within reach. HR has sustained now >60 even with metoprolol dose. Report given to bladimir SKELTON.
--- NOTE | 2018-08-19 23:18 | NUR ---
PATIENT UPDATE PATIENT BP ELEVATED THIS EVENING. MEETS REQUIREMENTS OF MEDICAITON ADMINISTRATION. MED ADMINISTERED PER ORDER, PT WILL CONTINUE TO BE MONITORED.
[2018-08-20 04:16] LABS: pH Blood Arterial 7.42 (7.35-7.45)
[2018-08-20 04:17] LABS: PCO2 Arterial 47.2 mmHg (35-45); PO2 Arterial 96.8 mmHg (80-100)
--- NOTE | 2018-08-20 06:27 | NUR ---
SHIFT SUMMARY PT ALERT AND ORIENTED X 3 THROUGHOUT SHIFT. SHE WAS PLEASANT AND COOPERATIVE WITH VITALS AND ASSESSMENTS. PT DENIED ANY UNMET NEEDS, WAS ABLE TO MAKE NEEDS KNOWN AND USED HER CALL LIGHT APPROPRIATELY. SHE HAD NO ACUTE CHANGES TO VITALS OR LOC. SHE WORE HER BIPAP T/O SHIFT AND TOLERATED IT WELL. PT HAD SOME CONCERNS ABOUT HER HGB LEVELS AND WOULD LIKE FOR DAYSHIFT TO GET A HOLD OF DOCTOR ABOUT GETTING A NEW DRAW AND ATTEMPTING TO FIND OUT WHY SHE IS LOWER THAN NORMAL. WILL PASS THIS ON TO DAYSHIFT. PT ASSISTED WITH TURNS AND REPOSITIONS. SHE REMAINED IN BED T/O THE NIGHT. PT WILL CONTINUE TO BE MONITORED UNTIL HANDOFF TO DAYSHIFT RN.
--- NOTE | 2018-08-20 07:54 | NUR ---
NURSING PCU DAYSHIFT: Assumed care of pt at 0700. A/O, pleasant, cooperative w/care. General weakness noted, chronic BLE neuropathy, R foot drop noted. Skin is fragile though intact, recovered R radial and R groin site, c/o abrasion to intergluteal cleft. C/O 8/10 RLE pain, treating w/meds and positioning. Tele in place, NSR, no c/o CP/pressure, SBP 150's, trace-1+ BLE edema (L>R). L/S fairly cta t/o w/dim bases, dyspnea w/exertion, O2 sat mid 90's on 2L NC, productive cough though pt swallows sputum, continuous bedside O2 monitoring. Abd obese, SNT, BT+, chronic FC draining yellow urine. PICC present in LUE, s/l. No s/s of acute distress at this time. Pt currently laying in bed talking on the phone. Denies any current needs or questions regarding plan of care. Call light in reach and pt is able to use w/o difficulty. Awaiting rounding from PMD, pulmonology, and cardilogy, cont to monitor for any changes.
--- NOTE | 2018-08-20 16:42 | NUR ---
NURSING PCU DAYSHIFT SUMMARY: At approx 1000 pt begain to c/o quick onset of brief chest discomfort and general sensation of not feeling well. Pt was pale and diaphoretic at that time, noted HTN w/SBP of 205, no rhythm changes noted. Spoke w/PMD, plan of care discussed, a.m. meds administered. Pt remained hypertensive t/o the shift. Seen by PMD at bedside, new d/o received, meds administered as ordered. Pt states that she is feeling better though not yet at baseline. Denies any current needs or questions regarding plan of care. Call light in reach, cont to monitor until rpt is given to NOC RN.
--- NOTE | 2018-08-21 00:23 | NUR ---
SPOKE WITH DR DAN ABOUT BLOOD PRESSURE. NEW ORDERS PROVIDED.
[2018-08-21 04:27] LABS: Hematocrit 31.9 % (33.0-51.0); Hemoglobin 9.5 g/dL (11.5-16.0); Mean Corpuscular HGB 27.7 pg (26.0-34.0); Mean Corpuscular HGB Conc 29.8 g/dL (31.5-36.5); Mean Corpuscular Volume 93 fL (80-100); Mean Platelet Volume 9.8 fL (9.1-12.4); Platelet Count 299 K/mm3 (150-400); RDW Coefficient Variation 15.2 % (11.7-14.2); RDW Standard Deviation 51.7 fL (35.1-46.3); Red Blood Cell Count 3.43 M/mm3 (3.80-5.20); White Blood Cell Count 10.02 K/mm3 (4.00-11.30)
[2018-08-21 04:42] LABS: Albumin, Blood 2.6 g/dL (3.4-5.0); Anion Gap 4 mmol/L (6-16); Blood Urea Nitrogen 29 mg/dL (8-24); Bun/Creatinine Ratio 27.1 (12.0-20.0); CO2, Blood 34 mmol/L (21-32); Chloride, Blood 106 mmol/L (98-108); Creatinine, Blood 1.07 mg/dL (0.40-1.00); Glomerular Filtration Rate 53 (60-); Glucose, Blood 91 mg/dL (70-99); Phosphorus, Blood 4.5 mg/dL (2.5-4.9); Potassium, Blood 4.6 mmol/L (3.5-5.5); Sodium, Blood 144 mmol/L (136-145)
--- NOTE | 2018-08-21 04:57 | NUR ---
SHIFT SUMMARY PT ALERT AND ORIENTED. PT PARTICIPATED IN SLEEP STUDY THIS SHIFT. BP HAS IMPROVED WITH NEW MEDICATION ADMINISTRATION. PT RESTED MOST OF SHIFT WITH MINIMAL INTERRUPTION DUE TO SLEEP STUDY. PT COMPLAINED OF PAIN IN HER LEFT LEG THAT WAS RELIEVED WITH MEDICATION SEE EMAR. HR HAS BEEN IN THE 60'S-70'S. PT ABLE TO REPOSITION WITH MINIMAL ASSISTANCE NEEDED. NO OTHER CHANGES SINCE INITIAL ASSESSMENT. WILL CONTINUE TO MONITOR AND REPORT TO ONCOMING RN. CALL LIGHT IN REACH.
[2018-08-21 05:24] LABS: PCO2 Arterial 57.6 mmHg (35-45); PO2 Arterial 81.4 mmHg (80-100); pH Blood Arterial 7.39 (7.35-7.45)
--- NOTE | 2018-08-21 07:28 | NUR ---
NURSING PCU DAYSHIFT: Assumed care of pt at approx 0700. A/O, very pleasant, cooperative w/care. C/O chronic BLE pain and neuropathy. Skin is dry/fragile, recovered R radial and femoral sites, scattered bruising, abrasion and redness to intergluteal cleft, mepilex in place. General weakness noted, requires assistance w/rolling. Tele in place, SB, no c/o CP/pressure, SBP 150's, trace L ankle edema, murmur noted. L/S w/exp wheezes in b/l upper lobes, fine crackles to LLL, dim R base, dyspnea at rest, O2 sat mid 90's on 2L NC, c/o dry/SEED EXPERT cough, respirations shallow though regular. Abd obese, SNT, BT+, chronic FC in place and draining yellow urine. PICC present in LUE, s/l. No s/s of acute distress at this time. RT at bedside for breathing tx. Pt denies any current needs or questions regarding plan of care. Call light in reach and pt is able to use w/o difficulty. Plan to work w/P.T., pt is agreeable. Awaiting rounding from PMD, cont to monitor for changes.
--- NOTE | 2018-08-21 14:20 | NUR ---
Alerted to low heart rate by continuous oxymetry. The pt appears without distress, dyspnea, diaphoresis or pain. She denies pain, but states that it feels like her heart is skipping beats, or "fluttering". Vital signs taken, heart rate confirmed by telemetry to be 39 bpm.
--- NOTE | 2018-08-21 15:12 | NUR ---
OBTAINED PERMISSION FROM PT TO PROVIDE CARE UNDER RN SUPERVISION 08/22/18
--- NOTE | 2018-08-21 17:41 | NUR ---
NURSING PCU DAYSHIFT SUMMARY: Pt remained hypertensive t/o the a.m. C/O general "not feeling well" at approx 1045, rhythm and VS unchanged. At approx 1430 pt was having c/o 9/10 CP along w/tunnel vision, rhythm changed to junctional w/rate of 30's. PMD notified, cardiology consult received and called. EKG completed, nitro x2 administered. SBP decreased to 70's, 250cc NS bolus administered, SBP resulted >100 though CP remained 7/10. Heating Element Builder arrived at bedside, pt chart reviewed and discussed, assessment and consult completed. Plan for dual chamber pacemaker placement in a.m., pt will remain NPO after 2400. Pt denies any questions/needs at this time. Procedure and blood consents placed on front of chart. Call light remains in reach. Cont to monitor until rpt is given to NOC RN.
--- NOTE | 2018-08-22 02:37 | NUR ---
ASSUMED CARE AT 1900. TALKATIVE AND AGREES TO HS SNACK AND CHRONIC PAIN REPORTED FOOT DROPPED RT FOOT, HAS USUAL NUMBNESS AND TINGLING AND PAIN. ALSO REPORTS ANGELA. MEDS GIVEN NEEDED AND IMPROVEMENT FROM DISCOMFORT. BP WNL. TROPONIN WNL. SR/SB. LOWEST SEEN 58. AND FREQ 60'S. SEE AVAP SETTINGS WHEN FIRST PLACED ON AVAP TONIGHT,,AT 2400 CHAGED TO 14/20 FOR IPAP. AND BUR 12 INSTEAD OF 10. REMOVED AVAP,PER SELF,PLACED 2 L NC, WNL SATS . NPO SINCE MIDNOC.AWARE OF AM PROCEDURE AND QUESTIONS ANS. DENIES CP, VISUAL DISTURBANCE NO JX RHYTHM NOTED. REFUSED TO BE AWAKENED Q 2 HR TO BE TURNED. ASSISTED W/ TURN AND ENC TO DO MORE ACTIVE ROM AND MOVEMENT OF SELF IN BED . MEPILEX NOT REMOVED FROM COCCYX AND SKIN FOLDS W/O SKIN BREAK DOWN.
[2018-08-22 04:25] LABS: BASOPHILS ABSOLUTE AUTO 0.06 K/mm3 (0.00-0.23); BASOPHILS PERCENT AUTO 1 % (0-2); EOSINOPHILS ABSOLUTE AUTO 0.41 K/mm3 (0.00-0.68); EOSINOPHILS PERCENT AUTO 4 % (0-6); IMMATURE GRAN ABSOLUTE AUTO 0.06 K/mm3 (0.00-0.10); IMMATURE GRAN PERCENT AUTO 1 % (0-1); LYMPHOCYTES ABSOLUTE AUTO 1.51 K/mm3 (0.84-5.20); LYMPHOCYTES PERCENT AUTO 16 % (21-46); MONOCYTES ABSOLUTE AUTO 0.48 K/mm3 (0.16-1.47); MONOCYTES PERCENT AUTO 5 % (4-13); Mean Corpuscular HGB 27.7 pg (26.0-34.0); Mean Corpuscular Volume 95 fL (80-100); Mean Platelet Volume 9.6 fL (9.1-12.4); NEUTROPHILS PERCENT AUTO 73 % (41-73); Platelet Count 249 K/mm3 (150-400); RDW Coefficient Variation 15.2 % (11.7-14.2); RDW Standard Deviation 53.6 fL (35.1-46.3); Red Blood Cell Count 3.25 M/mm3 (3.80-5.20); White Blood Cell Count 9.22 K/mm3 (4.00-11.30)
[2018-08-22 04:38] LABS: International Normalized Ratio 1.01; Prothrombin Time Results 10.7 Sec (9.7-11.5)
[2018-08-22 05:07] LABS: Creatinine, Blood 1.48 mg/dL (0.40-1.00); Potassium, Blood 5.3 mmol/L (3.5-5.5)
[2018-08-22 05:08] LABS: Calcium, Blood 8.7 mg/dL (8.5-10.1)
--- NOTE | 2018-08-22 05:59 | NUR ---
SUMMARY. SLEPT WELL ON V PAP. SETTINGS SAME ALL NOC SINCE CHANGES. SIP OF H2O W/ PILL. NPO. SB/'SR ALL NOC . 57-67 RATE NOTED.COMFORTABLE. VERY LITTLE REPOSITIONING PER REQUEST.
[2018-08-22 07:23] LABS: Free Thyroxine 1.05 ng/dL (0.70-1.60); Triiodothyronine, Free 1.5 pg/mL (2.18-3.98)
--- NOTE | 2018-08-22 08:50 | NUR ---
Assumed Care: Assumed care of pt at approx 0700. VSS. In no apparent sign of distress. Pt is A&Ox4. Calls appropriately and pt is able to assist with repositioning. Pt denies any CP. C/o some mild pain to RLE that is her "normal". Dr. Sheppard in to see pt this AM, and plan is to place pacer tomorrow. See shift assessment for detailed assessment. Pt is currently resting in bed with call light within reach. Denies any further questions, complaints or requests at this time. Will continue to monitor.
--- NOTE | 2018-08-22 19:23 | NUR ---
Shift Summary No acute changes since initial shift assessment. VSS. In no apparent sign of distress. Pt has remained A&Ox4. Plan is to place pacer tomorrow dependent on power and weather restrictions. Pt denies any other acute complaints or events t/o the shift. Pt has remained on 2L o2 NC. Denies any CP today. No changes on tele. Pt has been repositioned Q2H. Currently resting in bed with call light within reach. Denies any further questions, complaints or requests at this time. Will continue to montior until report is given to bladimir SKELTON.
[2018-08-23 03:38] LABS: BASOPHILS ABSOLUTE AUTO 0.06 K/mm3 (0.00-0.23); BASOPHILS PERCENT AUTO 1 % (0-2); EOSINOPHILS ABSOLUTE AUTO 0.41 K/mm3 (0.00-0.68); EOSINOPHILS PERCENT AUTO 5 % (0-6); Hematocrit 30.3 % (33.0-51.0); Hemoglobin 8.8 g/dL (11.5-16.0); IMMATURE GRAN ABSOLUTE AUTO 0.05 K/mm3 (0.00-0.10); IMMATURE GRAN PERCENT AUTO 1 % (0-1); LYMPHOCYTES ABSOLUTE AUTO 1.69 K/mm3 (0.84-5.20); LYMPHOCYTES PERCENT AUTO 19 % (21-46); MONOCYTES ABSOLUTE AUTO 0.47 K/mm3 (0.16-1.47); MONOCYTES PERCENT AUTO 5 % (4-13); Mean Corpuscular HGB 27.6 pg (26.0-34.0); Mean Corpuscular Volume 95 fL (80-100); Mean Platelet Volume 9.7 fL (9.1-12.4); NEUTROPHILS ABSOLUTE AUTO 6.19 K/mm3 (1.96-9.15); NEUTROPHILS PERCENT AUTO 70 % (41-73); Platelet Count 242 K/mm3 (150-400); RDW Coefficient Variation 14.7 % (11.7-14.2); RDW Standard Deviation 51.8 fL (35.1-46.3); Red Blood Cell Count 3.19 M/mm3 (3.80-5.20); White Blood Cell Count 8.87 K/mm3 (4.00-11.30)
[2018-08-23 03:57] LABS: Albumin, Blood 2.6 g/dL (3.4-5.0); Albumin/Globulin Ratio 0.8 (0.8-1.8); Bilirubin, Total 0.2 mg/dL (0.1-1.0); Bun/Creatinine Ratio 30.6 (12.0-20.0); Calcium, Blood 9.3 mg/dL (8.5-10.1); Creatinine, Blood 1.11 mg/dL (0.40-1.00); Globulin, Blood 3.1 g/dL (2.2-4.0); Potassium, Blood 4.9 mmol/L (3.5-5.5); Total Protein, Blood 5.7 g/dL (6.4-8.2)
--- NOTE | 2018-08-23 06:00 | NUR ---
SHIFT SUMMARY PT ALERT AND ORIENTED. VS STABLE. 02 SATS HAVE REMAINED ABOVE 92% ON 2L VIA NC AND BIPAP WITH FI02 OF 30%. PT DENIES ANY PAIN. BP ELEVATED, BUT IMPROVED WITH MEDICATION ADMINISTRATION. PT AWAITING PACEMAKER PLACEMENT. PT REFUSED REPOSITIONING THROUGH THE NIGHT. NO OTHER CHANGES SINCE INITIAL ASSESSMENT. WILL CONTINUE TO MONITOR AND REPORT TO ONCOMING RN. CALL LIGHT IN REACH.
--- NOTE | 2018-08-23 08:20 | NUR ---
ASSUMED CARE: REPORT RECEIVED FROM DARVIN Charlton RN. ASSUMED CARE OF THIS PT AT APPROX 0700. ON ASSESSMENT, THE PT IS RESTING QUIETLY. SHE DENIES NEEDS AT THIS TIME. STS SHE HAS A NEW HEADACHE & IS EXPERIENCING SOME STRESS R/T PLAN FOR PACER PLACEMENT THIS AM. PROVIDER, DR. AVELAR, HAS BEEN AT BEDSIDE TO DISCUSS POC & PLAN FOR SURGERY W/ PT. PLAN IS FOR PROCEDURE AT APPROX 1000. IT HAS BEEN REINFORCED BY THIS RN THAT THE CHOICE TO HAVE A PACER PLACED IS THE PT's & THAT SHE SHOULD NOT FEEL OBLIGATED TO HAVE THIS PROCEDURE. THE PT STS SHE STILL WOULD LIKE TO HAVE A PACER PLACED, BUT THAT SHE WILL CONTINUE TO PRAY ABOUT IT & ASK FOR GUIDANCE. WILL CONTINUE TO MONITOR & UPDATE NEEDED.
--- NOTE | 2018-08-23 10:25 | NUR ---
DR. JOHN: PROVIDER AT BEDSIDE TO SEE PT. DISCUSSED POC. PROVIDER ABLE TO GIVE PT MORE SUPPORT & KNOWLEDGE REGARDING PACER PLACEMENT & PT STS "FEELING BETTER." NO OTHER CHANGES/ORDERS AT THIS TIME. WILL CONTINUE TO MONITOR & UPDATE NEEDED.
--- NOTE | 2018-08-23 10:42 | NUR ---
Senior leader Rounding. Beverly was alert, friendly and in good spirits. No indications of physical pain, discomfort or stress. I provided social attention, humor and encouragement. Beverly is very satisfied with the attention and support she is receiving.
--- NOTE | 2018-08-23 12:13 | NUR ---
PACER PLACEMENT: PT TO [facility] FOR PACER PLACEMENT AT 1210.
--- NOTE | 2018-08-23 13:03 | NUR ---
Pt is lying in bed relaxed and resting ,pt reports doing well aned is happy for that encouraged her and offered some prayers.
--- NOTE | 2018-08-23 14:05 | NUR ---
REPORT REC'D FROM STEPHEN SKELTON. PT STILL AT [facility] FOR PACER PLACEMENT.
--- NOTE | 2018-08-23 15:45 | NUR ---
PT APPEARED ANXIOUS FROM BEGINNING. RESPONDS HYPERSENSITIVELY TO TOUCH (E.G., CLAIMS PAIN WHEN IRRIGATING POCKET WITH ABX SOLUTION), PROMPTING PHYSICIAN TO ORDER MEDICATIONS FOR COMFORT. PT RECEIVED VERSED 12 MG IV AND FENTANYL 200 MCG IV OVER 2.5H OF STIMULATION DESPITE FREQUENT ID AND SQ LOCAL ANESTHESIA INJECTIONS. SPO2 MAINTAINED AT 96% OR GREATER ON 2L O2 AUTOMOBILE CONTRACT CLERK.
--- NOTE | 2018-08-23 18:49 | NUR ---
PT LAYING IN BED WATCHING TV. PT EATING WELL POST PROCEDURE. PT STILL C/O SOME MILD PAIN AT INSERTION SITE. HAS HAD SINCE MOVED FOR CHEST XR. DR DEAL STATES CHEST XR WAS "PERFECT". SLING IN PLACE PER ORDERS. CONT TO MONITOR AND REPORT OFF TO PM RN
[2018-08-24 03:40] LABS: BASOPHILS ABSOLUTE AUTO 0.06 K/mm3 (0.00-0.23); BASOPHILS PERCENT AUTO 1 % (0-2); EOSINOPHILS ABSOLUTE AUTO 0.49 K/mm3 (0.00-0.68); EOSINOPHILS PERCENT AUTO 5 % (0-6); Hematocrit 30.7 % (33.0-51.0); IMMATURE GRAN ABSOLUTE AUTO 0.03 K/mm3 (0.00-0.10); IMMATURE GRAN PERCENT AUTO 0 % (0-1); LYMPHOCYTES ABSOLUTE AUTO 1.37 K/mm3 (0.84-5.20); LYMPHOCYTES PERCENT AUTO 14 % (21-46); MONOCYTES ABSOLUTE AUTO 0.63 K/mm3 (0.16-1.47); MONOCYTES PERCENT AUTO 7 % (4-13); Mean Corpuscular HGB 27.4 pg (26.0-34.0); Mean Corpuscular HGB Conc 29.3 g/dL (31.5-36.5); Mean Corpuscular Volume 94 fL (80-100); Mean Platelet Volume 9.8 fL (9.1-12.4); NEUTROPHILS ABSOLUTE AUTO 6.98 K/mm3 (1.96-9.15); NEUTROPHILS PERCENT AUTO 73 % (41-73); Platelet Count 230 K/mm3 (150-400); RDW Standard Deviation 52.2 fL (35.1-46.3); Red Blood Cell Count 3.28 M/mm3 (3.80-5.20); White Blood Cell Count 9.56 K/mm3 (4.00-11.30)
[2018-08-24 03:58] LABS: Alanine Aminotransfer (ALT/SGP 13 U/L (12-78); Albumin, Blood 2.7 g/dL (3.4-5.0); Albumin/Globulin Ratio 0.9 (0.8-1.8); Alk Phos 52 U/L (50-136); Anion Gap 3 mmol/L (6-16); Aspartate Aminotrans (AST/SGOT 13 U/L (12-37); Bilirubin, Total 0.2 mg/dL (0.1-1.0); Blood Urea Nitrogen 36 mg/dL (8-24); Bun/Creatinine Ratio 25.7 (12.0-20.0); CO2, Blood 35 mmol/L (21-32); Chloride, Blood 103 mmol/L (98-108); Glomerular Filtration Rate 39 (60-); Glucose, Blood 94 mg/dL (70-99); Phosphorus, Blood 4.1 mg/dL (2.5-4.9); Sodium, Blood 141 mmol/L (136-145); Total Protein, Blood 5.7 g/dL (6.4-8.2)
--- NOTE | 2018-08-24 06:19 | NUR ---
SHIFT SUMMARY PT ALERT AND ORIENTED. VS STABLE. BP ELEVATED AT BEGINNING OF SHIFT HAS IMPROVED. PRESSURE BANDAGE TO LEFT CHEST WALL IN PLACE C/D/I. PT COMPLAINED OF PAIN TO LEFT CHEST WALL THAT WAS RELIEVED WITH MEDICATION ADMINISTRATION. PT REFUSES REPOSITIONING THROUGHOUT SHIFT. 02 SATS >92% ON 2L NC. PT ON BIPAP INTERMITTENTLY. NO OTHER CHANGES SINCE INITIAL ASSESSMENT. WILL CONTINUE TO MONITOR AND REPORT TO ONCOMING RN. CALL LIGHT IN REACH.
--- NOTE | 2018-08-24 10:41 | NUR ---
PCU DAYSHIFT ASSUMED CARE OF PT APPROX. 0700. PT A&O X4. ASSESSMENT COMPLETED. VITAL SIGNS STABLE. PT REPORTS SOME PAIN IN UPPER LEFT CHEST AT PACEMAKER INCERSION SITE. PRN PAIN MEDICAITON GIVEN FOR THIS PER EMAR. NUT SORTER OPERATOR IN TO SEE PT THIS MORNING AND REMOVED PRESSURE DRESSING. TEGADERM AND GAUZE REMAIN IN PLACE, IN TACT AND SCANT AMOUNT OF DRAINAGE. NO S/SX EDEMA, SWELLING OR BLEEDING. SLING REMAINS IN PLACE. MANNING REMAINS IN PLACE, INTACT, PATENT AND DRAINING. BED IN LOW PSOTION, CALL LIGHT IN REACH AND PT DENIES ANY NEEDS AT THIS TIME.
--- NOTE | 2018-08-24 13:56 | NUR ---
Met pt. in bed and is doing well her nurse is innthe room attending to her neds.
--- NOTE | 2018-08-24 19:39 | NUR ---
SHIFT SUMMARY PT PLEASANT, COOPERATIVE AND USES CALL LIGHT APPROPRAITE.Y PT REMAINS A&O X4. VITAL SIGNS REMAIN STABLE. MANNING REMAIN IN PLACE, PATENT AND DRIANING. SLING REMAINS IN PLACE AND PT AWARE OF RESTRICTION ON LEFT ARM. PT HAD INCREASED PAIN IN UPPER LEFT CHEST WALL AND HEAD INTERMITTENTLY AND PRN PAIN MEDICAITON GIVEN PER EMAR. P.T. AND O.T. IN TO SEE PT TODAY. DRESSING REMAINS IN PLACE ON UPPER CHEST WALL. NO CHANGES IN DRAINAGE. NO S/SX REDNESS, SWELLING OR HEMATOMA. BED IN LOW POSTION, CALL LIGHT IN REACH AND PT DENIES ANY NEEDS AT THIS TIME. WILL CONTINUE TO MONITOR UNTIL HANDOFF TO NIGHTSHIFT RN.
[2018-08-25 04:22] LABS: BASOPHILS ABSOLUTE AUTO 0.06 K/mm3 (0.00-0.23); BASOPHILS PERCENT AUTO 1 % (0-2); EOSINOPHILS ABSOLUTE AUTO 0.51 K/mm3 (0.00-0.68); EOSINOPHILS PERCENT AUTO 6 % (0-6); Hematocrit 29.2 % (33.0-51.0); Hemoglobin 8.5 g/dL (11.5-16.0); IMMATURE GRAN ABSOLUTE AUTO 0.05 K/mm3 (0.00-0.10); IMMATURE GRAN PERCENT AUTO 1 % (0-1); LYMPHOCYTES ABSOLUTE AUTO 1.52 K/mm3 (0.84-5.20); LYMPHOCYTES PERCENT AUTO 18 % (21-46); MONOCYTES ABSOLUTE AUTO 0.53 K/mm3 (0.16-1.47); MONOCYTES PERCENT AUTO 6 % (4-13); Mean Corpuscular HGB 27.3 pg (26.0-34.0); Mean Corpuscular HGB Conc 29.1 g/dL (31.5-36.5); Mean Corpuscular Volume 94 fL (80-100); Mean Platelet Volume 9.9 fL (9.1-12.4); NEUTROPHILS ABSOLUTE AUTO 5.62 K/mm3 (1.96-9.15); NEUTROPHILS PERCENT AUTO 68 % (41-73); Platelet Count 198 K/mm3 (150-400); RDW Coefficient Variation 15.3 % (11.7-14.2); RDW Standard Deviation 52.9 fL (35.1-46.3); Red Blood Cell Count 3.11 M/mm3 (3.80-5.20); White Blood Cell Count 8.29 K/mm3 (4.00-11.30)
[2018-08-25 04:39] LABS: Albumin, Blood 2.6 g/dL (3.4-5.0); Albumin/Globulin Ratio 0.9 (0.8-1.8); Bilirubin, Total 0.2 mg/dL (0.1-1.0); Bun/Creatinine Ratio 29.9 (12.0-20.0); Calcium, Blood 8.9 mg/dL (8.5-10.1); Creatinine, Blood 1.27 mg/dL (0.40-1.00); Globulin, Blood 2.9 g/dL (2.2-4.0); Potassium, Blood 4.8 mmol/L (3.5-5.5); Total Protein, Blood 5.5 g/dL (6.4-8.2)
--- NOTE | 2018-08-25 06:48 | NUR ---
SHIFT SUMMARY PT ALERT AND ORIENTED. VS STABLE. SLING IN PLACE. LEFT CHEST WALL WITH GUAZE AND TEGADERM DRESSING IS UNCHANGED THIS SHIFT WITH MINIMAL SEROSANGUINEOUS DRAINAGE. PT COMPLAINS OF PAIN TO INCISION SITE THROUGHOUT SHIFT THAT IS RELIEVED WITH MEDICATION ADMINISTRATION. PT USED BIPAP MOST OF SHIFT WITH FI02 OF 30%. NO OTHER CHANGES SINCE INITIAL ASSESSMENT. WILL CONTINUE TO MONITOR AND REPORT TO ONCOMING RN. CALL LIGHT IN REACH.
--- NOTE | 2018-08-25 11:28 | NUR ---
Spiritual care visit conducted. Patient was lying in bed and alert when I entered patient's room. I introduced myself and patinet welcomed me. Patient expressed that she has not felt God in a long time and desires to feel a deeper connection to Him. I listened empathicaly, explored jain beliefs and sources of meaning, facilitated a life review, provided companionship and prayer. I also explored avenues in which one might see and sense God's presence. Patient responded well to all interventions and was very tearful during the prayer. Patient expressed sincere appreciation for my time and care.
--- NOTE | 2018-08-25 11:32 | NUR ---
Pt. lying in bed and hewr therapist in the eroom attnding to her needs offered spiritual support and prayerd..
== END 2018-08-25 17:46 | DRG 242 ==
LOC: ER 17:12 → ICUW 22:59 → PCU 22:59 → ICUW 08-06 05:02 → PCU 08-13 18:18 → MEDS 08-16 13:40 → PCU 08-18 15:28
PROVIDERS: Emergency Medicine; Family Medicine; Hospitalist; Internal Medicine; Internal Medicine Cardiovascular Disease; Internal Medicine Critical Care Medicine; Internal Medicine Interventional Cardiology; Physician Assistant; Student in an Organized Health Care Education/Training Program; ADMIT Internal Medicine
PROC: 5A09357 Assistance with Respiratory Ventilation, Less than 24 Consecutive Hours, Continuous Positive Airway Pressure (ICD-10-PCS; principal; 2018-08-06)
PROC: 02703EZ Dilation of Coronary Artery, One Artery with Two Intraluminal Devices, Percutaneous Approach (ICD-10-PCS; 2018-08-06)
PROC: 30233N1 Transfusion of Nonautologous Red Blood Cells into Peripheral Vein, Percutaneous Approach (ICD-10-PCS; 2018-08-08)
PROC: 0DJ08ZZ Inspection of Upper Intestinal Tract, Via Natural or Artificial Opening Endoscopic (ICD-10-PCS; 2018-08-10)
PROC: 0JH606Z Insertion of Pacemaker, Dual Chamber into Chest Subcutaneous Tissue and Fascia, Open Approach (ICD-10-PCS; 2018-08-23)
PROC: 02H63JZ Insertion of Pacemaker Lead into Right Atrium, Percutaneous Approach (ICD-10-PCS; 2018-08-23)
PROC: 02HK3JZ Insertion of Pacemaker Lead into Right Ventricle, Percutaneous Approach (ICD-10-PCS; 2018-08-23)
DX: I21.4 Non-ST elevation (NSTEMI) myocardial infarction (principal); A41.9 Sepsis, unspecified organism; J96.22 Acute and chronic respiratory failure with hypercapnia; J96.21 Acute and chronic respiratory failure with hypoxia; K29.81 Duodenitis with bleeding; K29.61 Other gastritis with bleeding; T83.511A Infection and inflammatory reaction due to indwelling urethral catheter, initial encounter; Z68.42 Body mass index [BMI] 45.0-49.9, adult; E87.2 Acidosis; D62 Acute posthemorrhagic anemia; N17.9 Acute kidney failure, unspecified; E46 Unspecified protein-calorie malnutrition; N39.0 Urinary tract infection, site not specified; K21.9 Gastro-esophageal reflux disease without esophagitis; Z79.82 Long term (current) use of aspirin; Z87.891 Personal history of nicotine dependence; E66.01 Morbid (severe) obesity due to excess calories; E78.5 Hyperlipidemia, unspecified; E88.81 Metabolic syndrome and other insulin resistance; M10.9 Gout, unspecified; E03.9 Hypothyroidism, unspecified; Z99.81 Dependence on supplemental oxygen; Z99.3 Dependence on wheelchair; I95.9 Hypotension, unspecified; G47.33 Obstructive sleep apnea (adult) (pediatric); M19.90 Unspecified osteoarthritis, unspecified site; G62.9 Polyneuropathy, unspecified; E11.51 Type 2 diabetes mellitus with diabetic peripheral angiopathy without gangrene; I25.10 Atherosclerotic heart disease of native coronary artery without angina pectoris; Z79.02 Long term (current) use of antithrombotics/antiplatelets; I49.8 Other specified cardiac arrhythmias; E11.22 Type 2 diabetes mellitus with diabetic chronic kidney disease; N18.3 Chronic kidney disease, stage 3 (moderate); I16.0 Hypertensive urgency; I12.9 Hypertensive chronic kidney disease with stage 1 through stage 4 chronic kidney disease, or unspecified chronic kidney disease; E88.09 Other disorders of plasma-protein metabolism, not elsewhere classified; I49.5 Sick sinus syndrome; J44.9 Chronic obstructive pulmonary disease, unspecified
CPT/HCPCS: 33208; 36415; 36430; 36556; 36569; 36600; 71045; 71046; 74176; 80048; 80053; 80069; 81001; 82272; 82550; 82553; 82803; 83605; 83735; 83880; 84100; 84439; 84443; 84481; 84484; 85014; 85018; 85025; 85027; 85049; 85347; 85379; 85384; 85610; 85730; 86850; 86900; 86901; 86923; 87040; 87070; 87077; 87086; 87186; 87205; 92928; 92929; 92978; 93005; 93010; 93306; 93308; 93321; 93458; 93571; 93572; 93925; 94640; 94660; 94762; 96361; 96374; 97110; 97163; 97166; 97530; 97535; 99152; 99153; 99285-25; C1725; C1751; C1753; C1757; C1769; C1785; C1876; C1887; C1894; C1898; C9113; J0360; J0456; J0461; J0690; J0696; J1265; J1430; J1644; J1940; J2250; J2270; J2370; J2405; J3010; J7030; J7040; J7050; J7070; J7120; P9016; Q9967

== ENCOUNTER 2018-09-11 10:16 | Inpatient (IN) | payer MEDICARE, OTHER ==
[~2018-09-11] VITALS: Ht 162.6 cm; Wt 112.1 kg
[~2018-09-11 10:16] MED LIST changes: +AMLO5 PO
[2018-09-11 10:52] LABS: BASOPHILS ABSOLUTE AUTO 0.02 K/mm3 (0.00-0.23); BASOPHILS PERCENT AUTO 0 % (0-2); EOSINOPHILS ABSOLUTE AUTO 0.13 K/mm3 (0.00-0.68); EOSINOPHILS PERCENT AUTO 1 % (0-6); Hematocrit 26.4 % (33.0-51.0); IMMATURE GRAN ABSOLUTE AUTO 0.09 K/mm3 (0.00-0.10); IMMATURE GRAN PERCENT AUTO 1 % (0-1); LYMPHOCYTES ABSOLUTE AUTO 0.87 K/mm3 (0.84-5.20); LYMPHOCYTES PERCENT AUTO 8 % (21-46); MONOCYTES PERCENT AUTO 6 % (4-13); Mean Corpuscular HGB 27.3 pg (26.0-34.0); Mean Corpuscular HGB Conc 30.3 g/dL (31.5-36.5); Mean Corpuscular Volume 90 fL (80-100); Mean Platelet Volume 10.6 fL (9.1-12.4); NEUTROPHILS ABSOLUTE AUTO 8.87 K/mm3 (1.96-9.15); NEUTROPHILS PERCENT AUTO 84 % (41-73); Platelet Count 179 K/mm3 (150-400); RDW Coefficient Variation 15.7 % (11.7-14.2); RDW Standard Deviation 51.8 fL (35.1-46.3); Red Blood Cell Count 2.93 M/mm3 (3.80-5.20); White Blood Cell Count 10.58 K/mm3 (4.00-11.30)
[2018-09-11 11:08] LABS: PCO2 Arterial 44.8 mmHg (35-45); PO2 Arterial 55.4 mmHg (80-100); pH Blood Arterial 7.45 (7.35-7.45)
[2018-09-11 11:14] LABS: Influenza A Positive (NEGATIVE); Influenza B Negative (NEGATIVE)
[2018-09-11 11:18] LABS: Albumin, Blood 2.7 g/dL (3.4-5.0); Albumin/Globulin Ratio 0.9 (0.8-1.8); Bilirubin, Total 0.4 mg/dL (0.1-1.0); Bun/Creatinine Ratio 29.1 (12.0-20.0); Calcium, Blood 8.7 mg/dL (8.5-10.1); Creatinine, Blood 1.03 mg/dL (0.40-1.00); Globulin, Blood 3.1 g/dL (2.2-4.0); Total Protein, Blood 5.8 g/dL (6.4-8.2)
[2018-09-11] MEDS ORDERED: ASPI81CH PO (11:38)
[2018-09-11 11:39] LABS: Troponin I 0.579 ng/mL (0.000-0.040)
[2018-09-11] MEDS ORDERED: CLOP75 PO (11:39)
[2018-09-11] MEDS ORDERED: Neurontin 300300 MG PO (11:39)
[2018-09-11] MEDS ORDERED: GABA600 PO (11:39)
[2018-09-11] MEDS ORDERED: LEVSOD150 PO (11:40)
[2018-09-11] MEDS ORDERED: ATOR40TA PO (11:40)
[2018-09-11] MEDS ORDERED: Isosorbide Mono30 MG PO (11:40)
[2018-09-11] MEDS ORDERED: METO25ER PO (11:41)
[2018-09-11] MEDS ORDERED: OSEL75CA (11:41)
[2018-09-11] MEDS ORDERED: PANT40 PO (11:42)
[2018-09-11] MEDS ORDERED: GUAI600T33 PO (11:42)
[2018-09-11] MEDS ORDERED: HYDR10 PO (11:43)
[2018-09-11] MEDS ORDERED: NITR.4SL SL (11:44)
[2018-09-11] MEDS ORDERED: Nystop60 GM TOP (11:46)
--- NOTE | 2018-09-11 16:45 | NUR ---
THIS PATIENT ARRIVED FROM THE ER WITH A DIAGNOSIS OF INFLUZA A (+). PT IS ALERT AND ORIENTED. PT HAS OCCASSIONAL NON-PRODUCTIVE COUGH. AFEBRILE.
--- NOTE | 2018-09-11 17:41 | NUR ---
DR. PRATT CALLED BACK. INFORMED HER THAT THERE IS A CARDIOLOGY CONSULT FOR THIS PATIENT. SHE STATES THAT IF PT IS ASYMPTOMATIC, EDUCATION COUNSELOR WILL SEE HER TOMORROW IF NON-EMERGENT.
--- NOTE | 2018-09-11 18:01 | NUR ---
DR. ZAIDI WAS NOTIFIED REGARDING THIS NURSE CONVERSATION WITH DR. PRATT. SINCE PT IS ASYMPTOMATIC DESPITE ELEVATED TROPONIN PT CAN BE SEEN BY A BASE BRANDER. IF THE PATIENT IS SYMPTOMATIC THEN PT NEEDS TO TRANSFERED TO HIGHER LEVEL OF CARE. DR. ZAIDI STATED PT CAN BEEN SEEN BY A BASE BRANDER IN THE MORNING. HE WAS ALSO NOTIFIED REGARDING PT'S CURRENT TROPONIN RESULT.
[2018-09-11 18:47] LABS: Source, Urine Catheter
[2018-09-11 18:53] LABS: Appearance, Urine Turbid (Clear); Bilirubin, Urine Neg (Neg); Blood, Urine 5+ (Neg); Color, Urine Yellow (P-Yellow); Glucose Qualitative, Urine Neg (Neg); Ketones, Urine Neg (Neg); Leukocyte Esterase, Urine 3+ (Neg); Nitrite, Urine Neg (Neg); Protein, Urine 3+ (Neg); Urobilinogen, Urine NORM (Normal)
[2018-09-11 19:04] LABS: Bacteria Rare /hpf; Squamous Epithelial Cells Few /hpf (Few)
--- NOTE | 2018-09-11 19:15 | NUR ---
ASSUMED CARE OF PT PT ALERT AND ORIENTED SITTING UP IN BED ON 2L OXYGEN VIA NC. PT HAS NON PRODUCTIVE COUGH AND WHEEZES THROUGHOUT. DURING ASSESSMENT PT COMPLAINED OF PAIN WITH LIGHT TOUCH ON BLE ON TOP OF FOOT TO BOTTOM OF KNEE. PT STATES THAT SHE HAS "DROP FOOT" AND HAS BEEN WHEELCHAIR OR BEDBOUND FOR 4 YEARS. PT ALSO REPORTS THAT SHE HAS A CHRONIC MANNING BECAUSE HER "KIDNEYS STOPPED WORKING". PT DENIES GETTING DIALYSIS. PT DOES NOT BELIEVE THAT SHE HAS INFLUENZA A DESPITE POSITIVE RESULT AND DOESN'T BELIEVE SHE NEEDS TO BE IN THE ICU. PT APPEARS TREMULOUS. WHEN ASKED PT REPORTS THAT THE TREMORS STARTED "2-3 DAYS AGO". PT ALSO REPORTS INTERMITTANT PAIN IN LEFT AND "SOMETIMES RIGHT" SIDE "UNDER THE RIB", NO PAIN ON PALPATION. PT DENIES CHEST PAIN. PT HAS BEEN HYPOTENSIVE SINCE ER DOSE OF HYDRALAZINE. WILL CONTINUE TO MONITOR AND HOLD NIGHT DOSE OF HYDRALAZINE. SEE FULL SHIFT ASSESSMENT.
[2018-09-12 03:22] LABS: BASOPHILS ABSOLUTE AUTO 0.01 K/mm3 (0.00-0.23); BASOPHILS PERCENT AUTO 0 % (0-2); EOSINOPHILS PERCENT AUTO 0 % (0-6); Hematocrit 25.4 % (33.0-51.0); Hemoglobin 7.6 g/dL (11.5-16.0); IMMATURE GRAN PERCENT AUTO 1 % (0-1); LYMPHOCYTES ABSOLUTE AUTO 0.53 K/mm3 (0.84-5.20); LYMPHOCYTES PERCENT AUTO 7 % (21-46); MONOCYTES ABSOLUTE AUTO 0.14 K/mm3 (0.16-1.47); MONOCYTES PERCENT AUTO 2 % (4-13); Mean Corpuscular HGB 27.5 pg (26.0-34.0); Mean Corpuscular HGB Conc 29.9 g/dL (31.5-36.5); Mean Corpuscular Volume 92 fL (80-100); NEUTROPHILS ABSOLUTE AUTO 7.13 K/mm3 (1.96-9.15); NEUTROPHILS PERCENT AUTO 90 % (41-73); RDW Coefficient Variation 15.6 % (11.7-14.2); RDW Standard Deviation 52.7 fL (35.1-46.3); Red Blood Cell Count 2.76 M/mm3 (3.80-5.20); White Blood Cell Count 7.91 K/mm3 (4.00-11.30)
[2018-09-12 03:25] LABS: Mean Platelet Volume 10.8 fL (9.1-12.4); Platelet Count 157 K/mm3 (150-400)
[2018-09-12 03:45] LABS: Albumin, Blood 2.5 g/dL (3.4-5.0); Albumin/Globulin Ratio 0.8 (0.8-1.8); Bilirubin, Total 0.3 mg/dL (0.1-1.0); Bun/Creatinine Ratio 24.9 (12.0-20.0); Calcium, Blood 8.3 mg/dL (8.5-10.1); Creatinine, Blood 1.85 mg/dL (0.40-1.00); Globulin, Blood 3.3 g/dL (2.2-4.0); Potassium, Blood 4.8 mmol/L (3.5-5.5); Total Protein, Blood 5.8 g/dL (6.4-8.2); Troponin I 0.482 ng/mL (0.000-0.040)
--- NOTE | 2018-09-12 05:27 | NUR ---
SHIFT SUMMARY NO ACUTE CHANGES OVERNIGHT. PT IS PLEASANT AND COMPLIANT WITH BIPAP/NC. PT WAS ABLE TO MAINTAIN SATS ABOVE 90%. SLIGHT WHEEZES HEARD THROUGHOUT, INTERMITTENT NONPRODUCTIVE COUGH. PT STATES THAT SHE "REALLY WANTS TO GO BACK TO [facility] TODAY" WILL REPORT TO DAYSHIFT NURSE.
--- NOTE | 2018-09-12 07:23 | NUR ---
ASSUMED CARE: PT RESTING QUIETLY IN BED WITH BIPAP IN PLACE. VSS. RESTING QUIETLY. NO ACUTE NEEDS OR CONCERNS NOTED AT THIS TIME.
--- NOTE | 2018-09-12 09:09 | NUR ---
PT HAD HOME DOSE OF POTASSIUM ORDERED. PT STATES THAT THERE IS NO ONE AVAILABLE TO BRING HOME MED AND PHARMACY DID NOT HAVE THAT DOSEAGE AVAILABLE. CALL TO DR GANDHI. SEE NEW ORDER. LASIX AND POTASSIUM ADMINISTERED AFTER POTASSIUM CHANGED
--- NOTE | 2018-09-12 18:57 | NUR ---
SHIFT SUMMARY: PT HAS BEEN ON 2L O2 VIA NC WITH WHEEZES AND COARSENESS NOTED IN UPPER BASES. HAS BEEN OFF BIPAP EXCEPT WHEN SLEEPING. DR GANDHI SAW PT TODAY AND WANTED HER TO REMAIN ICU STATUS DUE TO DECREASING H AND H, WHICH SHE IS RECIEVING A UNIT OF BLOOD FOR. PHYSICAL THERAPY WORKED WITH PT AND GOT HER UP TO SIDE OF BED TODAY. PLAN IS FOR DC BACK TO [facility] WHEN STABLE.
--- NOTE | 2018-09-12 19:40 | NUR ---
ASSUMED CARE PT IS RESTING IN ROOM COMFORTABLY AT THIS TIME. PER DAY SHIFT PT HAS HAD LOW H/H DURING DAY AND WAS GIVEN 1 UNIT PRBC'S, PT TOLERATED WELL. PER DAY SHIFT PROVIDER PLAN IS TO REMAIN ICU STATUS D/T DECREASING H/H AND REEVALUATE IN AM. RESP EVEN UNLABORED ON 2L NC, REPORTS IS BASELINE. SATS >92%. PT WEARS BIPAP AT NOC. SOME WHEEZES NOTED IN UPPER LOBES, LS COARSE T/O. DENIES PAIN AT THIS TIME. MANNING NOTED TO BE DRAINING CLEAR YELLOW URINE. CALL LIGHT IS WITHIN REACH OF PT.
[2018-09-13 03:26] LABS: BASOPHILS ABSOLUTE AUTO 0.01 K/mm3 (0.00-0.23); BASOPHILS PERCENT AUTO 0 % (0-2); EOSINOPHILS PERCENT AUTO 0 % (0-6); Hematocrit 30.4 % (33.0-51.0); Hemoglobin 9.4 g/dL (11.5-16.0); IMMATURE GRAN PERCENT AUTO 1 % (0-1); LYMPHOCYTES ABSOLUTE AUTO 1.39 K/mm3 (0.84-5.20); LYMPHOCYTES PERCENT AUTO 12 % (21-46); MONOCYTES ABSOLUTE AUTO 0.81 K/mm3 (0.16-1.47); MONOCYTES PERCENT AUTO 7 % (4-13); Mean Corpuscular HGB Conc 30.9 g/dL (31.5-36.5); Mean Corpuscular Volume 91 fL (80-100); Mean Platelet Volume 10.6 fL (9.1-12.4); NEUTROPHILS ABSOLUTE AUTO 9.53 K/mm3 (1.96-9.15); NEUTROPHILS PERCENT AUTO 81 % (41-73); Platelet Count 184 K/mm3 (150-400); RDW Coefficient Variation 15.4 % (11.7-14.2); RDW Standard Deviation 51.6 fL (35.1-46.3); Red Blood Cell Count 3.36 M/mm3 (3.80-5.20); White Blood Cell Count 11.84 K/mm3 (4.00-11.30)
[2018-09-13 03:46] LABS: Albumin, Blood 2.7 g/dL (3.4-5.0); Anion Gap 10 mmol/L (6-16); Blood Urea Nitrogen 60 mg/dL (8-24); Bun/Creatinine Ratio 30.2 (12.0-20.0); CO2, Blood 27 mmol/L (21-32); Calcium, Blood 8.2 mg/dL (8.5-10.1); Chloride, Blood 103 mmol/L (98-108); Creatinine, Blood 1.99 mg/dL (0.40-1.00); Glomerular Filtration Rate 26 (60-); Glucose, Blood 92 mg/dL (70-99); Magnesium, Blood 2.5 mg/dL (1.6-2.4); Phosphorus, Blood 6.3 mg/dL (2.5-4.9); Potassium, Blood 4.7 mmol/L (3.5-5.5); Sodium, Blood 140 mmol/L (136-145); Troponin I 0.424 ng/mL (0.000-0.040)
--- NOTE | 2018-09-13 06:44 | NUR ---
SHIFT SUMMARY PT RESTING IN ROOM COMFORTABLY. NO ACUTE CHANGES IN STATUS OVERNIGHT. PT HAD FEW NEEDS, AND USED CALL LIGHT APPROPRIATELY. RESP EVEN UNLBAORED ON 2L NC AT THIS TIME. PT WORE BIPAP T/O NIGHT, TOLERATED WELL. DENIES ANY CP, OR SOB. PT EXPRESSED CONCERN ABOUT LOSING BED AT [facility], IF SHE DOESN'T DC SOON. PT IS EXPRESSING DESIRE TO DC TODAY. WILL NOTIFY DAY SHIFT RN. CALL LIGHT IS IN REACH OF PT. WILL CONTINUE TO MONITOR UNTIL SHIFT CHANGE.
--- NOTE | 2018-09-13 07:45 | NUR ---
ASSUMED CARE: PT RESTING IN BED, REMOVED FROM BED MOFFETT AND CLEANED UP. BOOSTED UP IN BED. NC IN PLACE, RT AT BEDSIDE GIVING TREATMENT. PT DENIES FURTHER NEEDS OR CONCERNS. VSS, NSR, 2L NC AT THIS TIME.
--- NOTE | 2018-09-13 08:23 | NUR ---
CONSULT RECALLED TO ANSWERING SERVICE PER ADVISEMENT OF PAYROLL SUPERVISOR DUE TO NO JUNIOR PROJECT MANAGER SEEING PT YESTERDAY. DR PRATT CALLED AND SUGGESTED TO GET CLARIFICATION FROM DR GANDHI. CALL TO DR GANDHI AND STATES HE WANTS TO SEE PT BEFORE HE DECIDES IF CONSULT IS STILL NEEDED. PAYROLL SUPERVISOR AWARE
--- NOTE | 2018-09-13 09:35 | NUR ---
ECHOCARDIOGRAM COMPLETE
--- NOTE | 2018-09-13 13:29 | NUR ---
DR GANDHI HERE TO SEE PT. AWARE OF NEED FOR DVT PROPHYLAXIS AND STATES CARDIOLOGY CONSULT NOT NEEDED. MESSAGE LEFT AT [facility] TO LET DR PRATT KNOW. DR AWARE THAT PT HAS BEEN REFUSING REPOSITIONING AND TRANSFERRING INTO CHAIR.
--- NOTE | 2018-09-13 14:05 | NUR ---
Mrs. Hernández said very little, but wanted me to pray for her. she lives with two dtrs and "they take good care of me." She admits to feeling fearful and became tearful during prayer. Mrs. Hernández believes she will recover from this illness. I will remain available.
--- NOTE | 2018-09-13 18:12 | NUR ---
SHIFT SUMMARY: PT IS NOW MEDICAL STATUS. SHE WORKED WITH PT/OT THIS SHIFT AND SAT ON THE SIDE OF THE BED. PLAN IS TO DC IN NEXT FEW DAYS AND CONTINUE TO ENCOURAGE MOVEMENT IN THE MEAN TIME. PT CONTINUES TO REFUSE GETTING OUT OF BED UP TO CHAIR, EVEN WHEN LIFT IS OFFERED. NO FURTHER NEEDS OR CONCERNS NOTED
--- NOTE | 2018-09-14 01:19 | NUR ---
DIARRHEA PT HAVING LOOSE BM Q HR THIS SHIFT W/ PROGRESSIVE LOOSENING OF STOOL. CALL TO MD DAN FOR ORDERS FOR C-DIFF SAMPLE ONCE STOOL MUSHY/WATERY PER BRISTOL STOOL CHART. STOOL SAMPLE OBTAINED AND SENT TO LAB. WILL CONTINUE TO MONITOR.
--- NOTE | 2018-09-14 03:09 | NUR ---
CALL TO MD DAN D/T 7 LOOSE/WATERY BM'S THIS SHIFT & STOOL SAMPLE NEGATIVE FOR C-DIFF. TELEPHONE ORDERS RECIEVED FOR ONE TIME DOSE OF 4MG PO IMODIUM NOW FOLLOWED BY PRN 2 MG PO IMODIUM IF NEEDED. PHARMACY CONSULTED W/ APPROVAL FOR USE W/ PLAVIX.
[2018-09-14 04:17] LABS: BASOPHILS ABSOLUTE AUTO 0.03 K/mm3 (0.00-0.23); BASOPHILS PERCENT AUTO 0 % (0-2); EOSINOPHILS ABSOLUTE AUTO 0.14 K/mm3 (0.00-0.68); EOSINOPHILS PERCENT AUTO 1 % (0-6); Hematocrit 35.7 % (33.0-51.0); Hemoglobin 10.8 g/dL (11.5-16.0); IMMATURE GRAN ABSOLUTE AUTO 0.08 K/mm3 (0.00-0.10); IMMATURE GRAN PERCENT AUTO 1 % (0-1); LYMPHOCYTES ABSOLUTE AUTO 0.42 K/mm3 (0.84-5.20); LYMPHOCYTES PERCENT AUTO 3 % (21-46); MONOCYTES ABSOLUTE AUTO 0.61 K/mm3 (0.16-1.47); MONOCYTES PERCENT AUTO 5 % (4-13); Mean Corpuscular HGB 27.3 pg (26.0-34.0); Mean Corpuscular HGB Conc 30.3 g/dL (31.5-36.5); Mean Corpuscular Volume 90 fL (80-100); Mean Platelet Volume 10.7 fL (9.1-12.4); NEUTROPHILS ABSOLUTE AUTO 11.86 K/mm3 (1.96-9.15); NEUTROPHILS PERCENT AUTO 90 % (41-73); Platelet Count 236 K/mm3 (150-400); RDW Coefficient Variation 15.6 % (11.7-14.2); RDW Standard Deviation 51.2 fL (35.1-46.3); Red Blood Cell Count 3.96 M/mm3 (3.80-5.20); White Blood Cell Count 13.14 K/mm3 (4.00-11.30)
[2018-09-14 04:37] LABS: Albumin, Blood 2.7 g/dL (3.4-5.0); Anion Gap 8 mmol/L (6-16); Blood Urea Nitrogen 54 mg/dL (8-24); Bun/Creatinine Ratio 40.6 (12.0-20.0); CO2, Blood 28 mmol/L (21-32); Calcium, Blood 8.4 mg/dL (8.5-10.1); Chloride, Blood 107 mmol/L (98-108); Creatinine, Blood 1.33 mg/dL (0.40-1.00); Glomerular Filtration Rate 41 (60-); Glucose, Blood 114 mg/dL (70-99); Potassium, Blood 4.6 mmol/L (3.5-5.5); Sodium, Blood 143 mmol/L (136-145)
[2018-09-14 04:40] LABS: Phosphorus, Blood 2.7 mg/dL (2.5-4.9)
--- NOTE | 2018-09-14 06:30 | NUR ---
SHIFT SUMMARY PT MED NO TELE STATUS. A&O X4. LUNG SOUNDS COARSE T/O W/ EXPIRATORY WHEEZE. SPO2 > 90% ON 2L NC. PT REFUSING TO WEAR BIPAP MAJORITY OF NIGHT, WEARING BIPAP FOR ONLY A SHORT TIME DESPITE ENCOURAGEMENT. PT C/O NAUSEA, W/ EPISODES OF VOMITING. PT TX'D W/ ZOFRAN PER EMAR. MULTIPLE EPISODES OF LOOSE STOOL, STOOL SAMPLE NEGATIVE FOR C-DIFF. IMODIUM GIVEN PER EMAR. MANNING CATH PATENT AND DRAINING CLEAR YELLOW URINE. PRN MAGEN CARE/ATTENDS CHANGES PROVIDED T/O SHIFT W/ Q2H REPOSITION CHANGES BY 2 STAFF MEMBERS. PT REQUIRING ENCOURAGEMENT TO REPOSITION. PT IN BED W/ CALL LIGHT IN REACH. WILL CONTINUE TO MONITOR AND PROVIDE CARE UNTIL REPORT OFF TO DAY SHIFT RN.
--- NOTE | 2018-09-14 09:05 | NUR ---
Assued Care: Assumed care of pt at approx 0700. VSS. In no apparent sign of distress. Pt is A&Ox4. Calls appropriately. Assisting with reposition. Finds cleaning skin to bijan area to be very painul and calls out when cleaning. See shift assessment for detailed assessment. Received in report there is a potential contraindication between immodium and plavix so pt was given only one dose of immodium. Pt reported that she asked daughter to bring in immodium from home to take - educated that this is not allowed and daughter declined to bring in. Spoke with pharmacist Marguerite this AM, and was told that lomotil should not pose any issue or interact with any of the existing medications ordered - will ask doctor to order. Pt currently resting in bed with call light within reach. Denies any further qustons, complaints or requests at this time. Will continue to monitor.
--- NOTE | 2018-09-14 12:21 | NUR ---
PT TRANSFERRED TO MEDICAL FLOOR AND REPORT CALLED TO MED FLOOR RN
--- NOTE | 2018-09-14 18:17 | NUR ---
SHIFT SUMMARY PT AN ICU TRANSFER THIS SHIFT. NO COMPLAINTS OF PAIN OR SHORTNESS OF BREATH. PT WAS HAVING MULTIPLE EPISODES OF LOOSE STOOL IN ICU BUT PT HAS NOT HAD ANY DIARRHEA SINCE BEING ON MEDICAL FLOOR. NO ACUTE CHANGES THIS SHIFT. CALL LIGHT IN REACH. WILL CONTINUE TO MONITOR AND REPORT TO ONCOMING RN.
--- NOTE | 2018-09-15 05:47 | NUR ---
Rn summary: Patient is alert and oriented. Pt is on 2 liters O2 which is her baseline. Lungs with expiratory wheezes. Pt has slept with cpap all shift. Pt has edema yoav legs R>L and yoav foot drop. Pt had one very small incontinent stool. Rectal area is excoriated, barrier cream applied. Pt has left arm in sling, steri strips C/D/I to upper left chest wall. Left arm in sling. Pt has a chronic rodríguez cath with good urine output. Plan is for pt to bed DC'd in 1-2 days back to [facility]. Call light in reach. Pt has rested quietly.
[2018-09-15 06:01] LABS: BASOPHILS ABSOLUTE AUTO 0.01 K/mm3 (0.00-0.23); BASOPHILS PERCENT AUTO 0 % (0-2); EOSINOPHILS ABSOLUTE AUTO 0.25 K/mm3 (0.00-0.68); EOSINOPHILS PERCENT AUTO 4 % (0-6); Hematocrit 31.2 % (33.0-51.0); Hemoglobin 9.1 g/dL (11.5-16.0); IMMATURE GRAN ABSOLUTE AUTO 0.05 K/mm3 (0.00-0.10); IMMATURE GRAN PERCENT AUTO 1 % (0-1); LYMPHOCYTES ABSOLUTE AUTO 1.93 K/mm3 (0.84-5.20); LYMPHOCYTES PERCENT AUTO 33 % (21-46); MONOCYTES ABSOLUTE AUTO 0.45 K/mm3 (0.16-1.47); MONOCYTES PERCENT AUTO 8 % (4-13); Mean Corpuscular HGB 27.1 pg (26.0-34.0); Mean Corpuscular HGB Conc 29.2 g/dL (31.5-36.5); Mean Corpuscular Volume 93 fL (80-100); Mean Platelet Volume 10.6 fL (9.1-12.4); NEUTROPHILS ABSOLUTE AUTO 3.18 K/mm3 (1.96-9.15); NEUTROPHILS PERCENT AUTO 54 % (41-73); Platelet Count 186 K/mm3 (150-400); RDW Coefficient Variation 15.8 % (11.7-14.2); RDW Standard Deviation 53.3 fL (35.1-46.3); Red Blood Cell Count 3.36 M/mm3 (3.80-5.20); White Blood Cell Count 5.87 K/mm3 (4.00-11.30)
[2018-09-15 06:19] LABS: Albumin, Blood 2.5 g/dL (3.4-5.0); Anion Gap 2 mmol/L (6-16); Blood Urea Nitrogen 57 mg/dL (8-24); Bun/Creatinine Ratio 34.1 (12.0-20.0); CO2, Blood 31 mmol/L (21-32); Calcium, Blood 8.4 mg/dL (8.5-10.1); Chloride, Blood 105 mmol/L (98-108); Creatinine, Blood 1.67 mg/dL (0.40-1.00); Glomerular Filtration Rate 32 (60-); Glucose, Blood 83 mg/dL (70-99); Phosphorus, Blood 3.7 mg/dL (2.5-4.9); Potassium, Blood 4.2 mmol/L (3.5-5.5); Sodium, Blood 138 mmol/L (136-145)
--- NOTE | 2018-09-15 16:16 | NUR ---
PATIENT DISCHARGE THE PATIENT WAS DISCHARGED TO [facility] VIA AMBULANCE AFTER REPORT WAS CALLED TO [facility] NURSE MARIAM. THE PATIENT LEFT THE HOSPITAL WITHOUT CONCERN OR COMPLAINT.
[2018-09-15 18:19] LABS: Norovirus GI/GII Detected (NOT DETECT)
[2018-09-15 18:20] LABS: Adenovirus F 40/41 Not Detected (NOT DETECT); Astrovirus Not Detected (NOT DETECT); Campylobacter Sp Not Detected (NOT DETECT); Cryptosporidium Not Detected (NOT DETECT); Cyclospora Cayetanensis Not Detected (NOT DETECT); E. Coli O157 Not Detected (NOT DETECT); Entamoeba Histolytica Not Detected (NOT DETECT); Enteroaggregative E. coli-EAEC Not Detected (NOT DETECT); Enteropathogenic E. coli-EPEC Not Detected (NOT DETECT); Enterotoxigenic E. coli-ETEC Not Detected (NOT DETECT); Giardia Lamblia Not Detected (NOT DETECT); Plesiomonas Shigelloides Not Detected (NOT DETECT); Rotavirus A Not Detected (NOT DETECT); Salmonella Sp Not Detected (NOT DETECT); Sapovirus Not Detected (NOT DETECT); Shiga Toxin-prod E. coli-STEC Not Detected (NOT DETECT); Shigella/Enteroin E. coli-EIEC Not Detected (NOT DETECT); Vibrio Cholerae Not Detected (NOT DETECT); Vibrio Sp Not Detected (NOT DETECT); Yersinia Enterocolitica Not Detected (NOT DETECT)
== END 2018-09-15 16:11 | disposition home or self-care (01) | DRG 193 ==
LOC: ER 10:16 → ICUW 12:05 → ICUE 12:05 → MEDS 09-14 12:10 → ENPENDDIS 09-15 10:32 → MEDS 09-15 16:11
PROVIDERS: Emergency Medicine; Family Medicine; ADMIT Internal Medicine
DX: J09.X1 Influenza due to identified novel influenza A virus with pneumonia (principal); J96.21 Acute and chronic respiratory failure with hypoxia; J44.0 Chronic obstructive pulmonary disease with (acute) lower respiratory infection; J44.1 Chronic obstructive pulmonary disease with (acute) exacerbation; Z68.41 Body mass index [BMI] 40.0-44.9, adult; Z99.81 Dependence on supplemental oxygen; I25.10 Atherosclerotic heart disease of native coronary artery without angina pectoris; I25.2 Old myocardial infarction; E78.5 Hyperlipidemia, unspecified; E03.9 Hypothyroidism, unspecified; M10.9 Gout, unspecified; I12.9 Hypertensive chronic kidney disease with stage 1 through stage 4 chronic kidney disease, or unspecified chronic kidney disease; N18.3 Chronic kidney disease, stage 3 (moderate); I49.5 Sick sinus syndrome; D63.1 Anemia in chronic kidney disease; E66.01 Morbid (severe) obesity due to excess calories
CPT/HCPCS: 36415; 36430; 36600; 51703; 71045; 80053; 80069; 81001; 82803; 83605; 83735; 83880; 84484; 85025; 86850; 86900; 86901; 86923; 87086; 87493; 87507; 87804; 93005; 93010; 93308; 93321; 94640; 94644; 94660; 94762; 96374; 97110; 97162; 97166; 97530; 99285-25; J0696; J1650; J2405; J2543; J7050; P9016

== ENCOUNTER 2018-10-08 05:44 | Inpatient (IN) | payer MEDICARE, OTHER ==
[~2018-10-08] VITALS: Ht 160 cm; Wt 112.8 kg
[~2018-10-08 05:44] MED LIST changes: +ASPI81CH PO; +CLOP75 PO; +GABA600 PO; +GUAI600T33 PO; +HYDR10 PO; +Isosorbide Mono30 MG PO; +NITR.4SL SL; +Neurontin 300300 MG PO; +Nystop60 GM TOP; +OSEL75CA; +PANT40 PO
[2018-10-08 06:24] LABS: BASOPHILS ABSOLUTE AUTO 0.03 K/mm3 (0.00-0.23); BASOPHILS PERCENT AUTO 1 % (0-2); EOSINOPHILS ABSOLUTE AUTO 0.39 K/mm3 (0.00-0.68); EOSINOPHILS PERCENT AUTO 6 % (0-6); Hematocrit 30.7 % (33.0-51.0); Hemoglobin 8.9 g/dL (11.5-16.0); IMMATURE GRAN ABSOLUTE AUTO 0.04 K/mm3 (0.00-0.10); IMMATURE GRAN PERCENT AUTO 1 % (0-1); LYMPHOCYTES ABSOLUTE AUTO 1.28 K/mm3 (0.84-5.20); LYMPHOCYTES PERCENT AUTO 20 % (21-46); MONOCYTES ABSOLUTE AUTO 0.34 K/mm3 (0.16-1.47); MONOCYTES PERCENT AUTO 5 % (4-13); Mean Corpuscular HGB 27.6 pg (26.0-34.0); Mean Corpuscular Volume 95 fL (80-100); Mean Platelet Volume 9.6 fL (9.1-12.4); NEUTROPHILS ABSOLUTE AUTO 4.28 K/mm3 (1.96-9.15); NEUTROPHILS PERCENT AUTO 67 % (41-73); Platelet Count 230 K/mm3 (150-400); RDW Coefficient Variation 17.1 % (11.7-14.2); RDW Standard Deviation 58.5 fL (35.1-46.3); Red Blood Cell Count 3.23 M/mm3 (3.80-5.20); White Blood Cell Count 6.36 K/mm3 (4.00-11.30)
[2018-10-08] MEDS ORDERED: ASPI325EC PO (06:32)
[2018-10-08 06:39] LABS: Alanine Aminotransfer (ALT/SGP 16 U/L (12-78); Albumin, Blood 2.8 g/dL (3.4-5.0); Albumin/Globulin Ratio 0.8 (0.8-1.8); Alk Phos 65 U/L (50-136); Anion Gap 5 mmol/L (6-16); Aspartate Aminotrans (AST/SGOT 17 U/L (12-37); Bilirubin, Total 0.4 mg/dL (0.1-1.0); Blood Urea Nitrogen 23 mg/dL (8-24); Bun/Creatinine Ratio 25.9 (12.0-20.0); CO2, Blood 28 mmol/L (21-32); Calcium, Blood 8.4 mg/dL (8.5-10.1); Chloride, Blood 110 mmol/L (98-108); Creatinine, Blood 0.89 mg/dL (0.40-1.00); Globulin, Blood 3.4 g/dL (2.2-4.0); Glomerular Filtration Rate >60 (60-); Glucose, Blood 118 mg/dL (70-99); Potassium, Blood 4.5 mmol/L (3.5-5.5); Sodium, Blood 143 mmol/L (136-145); Total Protein, Blood 6.2 g/dL (6.4-8.2); Troponin I <0.015 ng/mL (0.000-0.040)
[2018-10-08 07:28] LABS: Source, Urine Catheter
[2018-10-08 07:33] LABS: Bilirubin, Urine Neg (Neg); Blood, Urine 5+ (Neg); Glucose Qualitative, Urine Neg (Neg); Ketones, Urine Neg (Neg); Leukocyte Esterase, Urine 3+ (Neg); Nitrite, Urine Neg (Neg); Protein, Urine 4+ (Neg); Specific Gravity, Urine 1.015 (1.003-1.022); Urobilinogen, Urine NORM (Normal)
[2018-10-08 07:47] LABS: Appearance, Urine Cloudy (Clear); Color, Urine Yellow (P-Yellow)
[2018-10-08 07:48] LABS: Red Blood Cells, Urine TNTC /hpf (0-2); Squamous Epithelial Cells Few /hpf (Few); White Blood Cells, Urine TNTC /hpf (0-5)
[2018-10-08 07:49] LABS: Bacteria Many /hpf; Transitional Epithelial Cells Few /hpf ({null, 0-Rare})
[2018-10-08 07:50] LABS: Granular Casts 0-2 /lpf ({null, 0})
--- NOTE | 2018-10-08 10:21 | NUR ---
ADMIT TO ICU, ROOM 7, VIA JOSE ALEJANDRO FROM [facility]. ROOM; DIAGNOSIS: UNSTABLE ANGINGA. NITROGLYCERINE DRIP AT 40MCG/MIN.; REMAINS WITH C/O ANGINA BUT HAS GONE FROM 03/07 (EMS) TO 10/05 AT THIS TIME. LUNGS CLEAR BUT DECREASED T/O. MONITOR SHOWS NSR WITHOUT ECTOPY; SBP ELEVATED TO 180'S TO 200'S. OXYGEN AT 2L/MIN VIA NC. WEARS OXYGEN AT 2L/MIN AT HOME. PATIENT STATES SHE WAS AT [facility], [facility] WEDNESDAY, AND RETURNED HOME TO DAUGHTERS' HOUSE. ONSET C.P. AROUND 2100 LAST PM (WEDNESDAY) AND WAS RELIEVED WITH NTG SL. WENT TO SLEEP AND AWOKE WITH RECURRENT C.P. WHICH WAS WORSE; ENDED UP CALLING EMS D/T PAIN OF 03/07; TAKEN TO ER (ARRIVED ABOUT 0605 AM); DX. WITH [facility] AND STARTED ON NITRO DRIP. PATIENT ORIENTED TO ROOM, CALL LIGHT ETC. UNCLEAR WHAT DOSAGES OF MEDS SHE IS ON AND WHEN THEY WERE LAST TAKEN; STATES HER DAUGHTER, ROSALIND, IS MANAGING MEDS. HAD HOME HEALTH SANDIE.(KIM), YESTERDAY, TO SEE WHAT SERVICES SHE WILL REQUIRE AT HOME. UPSET SHE WILL HAVE TO START PROCESS ALL OVER AGAIN. AND IS UPSET
--- NOTE | 2018-10-08 10:59 | NUR ---
NITROGLYCERINE DRIP INCREASED TO 50MCG/MIN; SBP 220'S. CHEST PAIN PRESENT BUT PATIENT ABLE TO SLEEP WHEN NOT DISTURBED.
--- NOTE | 2018-10-08 12:38 | NUR ---
T/C TO DR. DEVINE TO SEE IF HE WANTED A CARDIOLOGY CONSULT AND TO INFORM HIM RE: SBP HIGH 240; NITRO DRIP SLOWLY INCREASED. PHYSICIAN CONFIRMED NEED FOR CARDIOLOGY CONSULT AND WANTED TO WAIT TIL HE (DR. DEVINE) SEE'S PATIENT BEFORE ORDERING TX. FOR HYPERTENSION.
--- NOTE | 2018-10-08 12:40 | NUR ---
LEFT CONSULT MESSAGE FOR DR. HARMON (MIXING PLANT OPERATOR O/C).
--- NOTE | 2018-10-08 13:04 | NUR ---
DR. HARMON IN TO VISIT PATIENT IN ICU 3 FOLLOWING PCI; RN SPOKE TO PHYSICIAN AND INFORMED HIM OF CONSULT AND UPDATED HIM ON PATIENT'S STATUS; HE INQUIRED IF PATIENT HAS HAD ANYTHING TO EAT AND RN ADVISED ONLY A FEW SIPS OF WATER. PATIENT TO REMAIN NPO AND POSSIBLE MAY GO FOR ANGIOGRAM LATER TODAY; PHYSICIAN WILL EVAL. PATIENT LATER.
--- NOTE | 2018-10-08 13:40 | NUR ---
DR. DEVINE HERE AND SPOKE WITH PATIENT AND DID EVAL.; SEE ORDERS. RN INFORMED HIM THAT DR. HARMON WILL SEE PATIENT LATER TODAY; V/U.
--- NOTE | 2018-10-08 15:30 | NUR ---
MANNING CATH CHANGED AND NEW URINE SAMPLE TO LAB FOR POST CATH. PLACEMENT; SENT 3-5ML OF URINE; APPEARS CLEARER THAN EARIER. NITROGLYCERINE DRIP INCREASED TO 60MCG/MIN RECENTLY D/T CONT. C.P (3-4) AND HTN.
[2018-10-08 15:51] LABS: Source, Urine Catheter
[2018-10-08 16:03] LABS: Appearance, Urine Hazy (Clear); Bilirubin, Urine Neg (Neg); Blood, Urine 4+ (Neg); Color, Urine Yellow (P-Yellow); Glucose Qualitative, Urine Neg (Neg); Ketones, Urine Neg (Neg); Leukocyte Esterase, Urine 3+ (Neg); Nitrite, Urine Neg (Neg); Protein, Urine 4+ (Neg); Specific Gravity, Urine 1.015 (1.003-1.022); Urobilinogen, Urine NORM (Normal)
[2018-10-08 16:23] LABS: White Blood Cells, Urine 50-100 /hpf (0-5)
[2018-10-08 16:24] LABS: Amorphous Light ({null, 0-Heavy}); Bacteria Many /hpf; Red Blood Cells, Urine 25-50 /hpf (0-2); Squamous Epithelial Cells Few /hpf (Few)
--- NOTE | 2018-10-08 18:00 | NUR ---
SUMMARY: ORDERS ADJUSTED; PATIENT WITH WHEEZING THIS AFTERNOON AND WANTING UDN TX'S; RN CONTACTED DR. DEVINE; ORDERS GIVEN; UDN TX GIVEN BY JAY Crum. OXYGEN DOWN TO 1L/MIN; BIOX. READINGS IN MID TO HIGH 90'S. NITRO DRIP REMAINS AT 60MCG/KG/MIN; PATIENT DENIES CURRENT CHEST PAIN AND SBP IMPROVED; STAYING 140'S TO 170'S THE PAST FEW HOURS. DR. HARMON SAW PATIENT THIS AFTERNOON; SINCE TROPONIN LEVELS REMAIN STABLE AND NO EKG CHANGES WILL HOLD OFF ON ANGIOGRAM; WANTS TO TREAT PATIENT MEDICALLY TOLERATED. RECHECK LABS AND EKG IN AM. ALSO, CONCERNED RE: GI BLEED FROM LAST HOSPITAL STAY AND NEED FOR 4 U RBC'S; CHRONIC ANEMIA SINCE. PATIENT PLEASANT AND COOPERATIVE. WILL REPORT TO ONCOMING RN.
--- NOTE | 2018-10-08 19:00 | NUR ---
ASSUMED CARE ASSUMED CARE OF PATIENT. AWAKE AND ALERT. ORIENTED X 3. CALM AND COOPERATIVE. DENIES C/O CHEST PAIN OR OTHER DISCOMFORT AT THIS TIME. NTG INFUSING @ 60MCG/MIN. MONITOR SHOWS NSR, RATE 90s. SBP 150s. O2 @ 1L NC WITH SATS 95%. RESPIRATIONS EVEN AND UNLABORED. DENIES C/O SOB OR DYSPNEA. DENIES C/O NAUSEA. TOLERATING PO DIET. MANNING PATENT AND DRAINING CLOUDY YELLOW URINE. SEE SHIFT ASSESSMENT FOR FULL ASSESSMENT.
--- NOTE | 2018-10-09 00:39 | NUR ---
CHEST PAIN/NTG GTT PT C/O MILD CHEST PAIN 07/07 UPON WAKING UP. NTG GTT INCREASED TO 45MCG/MIN AT THIS TIME. DENIES C/O SOB. DENIES C/O NAUSEA. VSS.
--- NOTE | 2018-10-09 04:40 | NUR ---
NTG GTT PT DENIES C/O CHEST PAIN AT THIS TIME. NTG DECREASED TO 35MCG/MIN. LUNGS WITH EXPIRATORY WHEEZES T/O AND PT C/O FEELING SHORT OF BREATH- RT CALLED FROM [facility]. PT DENIES C/O PAIN, NAUSEA, OR OTHER DISCOMFORT. VSS.
--- NOTE | 2018-10-09 06:14 | NUR ---
SHIFT SUMMARY NO ACUTE CHANGES DURING NOC. SLEPT INTERMITTENTLY. ROUSES EASILY. NTG CONTINUED BETWEEN 30-60MCG/MIN DURING SHIFT- NOW INFUSING @ 30MCG/MIN. PT DENIED C/O CHEST PAIN OR DISCOMFORT AT LAST TITRATION. WILL CONTINUE TO REASSESS AND TITRATE NEEDED. DENIED C/O PAIN OR OTHER DISCOMFORT DURING SHIFT. TOLERATING DIET. MANNING PATENT AND DRAINING CLOUDY YELLOW URINE. MONITOR SHOWS NSR. BP STABLE. REMAINS ON 2L NC. OCCASIONAL EXP WHEEZES NOTED. WILL REPORT TO DAY SHIFT RN WHEN AVAILABLE.
--- NOTE | 2018-10-09 07:30 | NUR ---
ASSUMED CARE OF PATIENT; SEE ASSESSMENT CHARTING FOR DETAILS. PATIENT DENIES C/O CHEST PAIN OR OTHER ACUTE DISCOMFORT. TROPONIN LEVEL REMAINS WNL AND NO NOTED EKG CHANGES THIS AM. MONITOR SHOWING HR 70'S WITH SBP 170'S; DUE FOR ROUTINE AM MEDS. SOON; TO INCLUDE METOPROLOL AND ZESTRIL. WILL START TITRATING DOWN NITROGLYCERINE DRIP BP COMES DOWN; CURRENTLY DRIP AT 35MCG/MIN. PATIENT ALERT, ORIENTED AND COOPERATIVE; NO GI UPSET. MANNING (INDWELLING D/T CHRONIC URINARY RETENTION) DRAINING MOD. AMOUNTS OF LIGHT, YELLOW URINE; APPEARS LESS CLOUDY THAN YESTERDAY; LOW GRADE FEVER OF 99.1 DEGREES.
--- NOTE | 2018-10-09 09:00 | NUR ---
NITROGLYCERINE DRIP REDUCED TO 30MCG/MIN; ROUTINE MEDS. GIVEN; NO C/O CHEST PAIN.
--- NOTE | 2018-10-09 10:15 | NUR ---
NITROGLYCERINE DRIP REDUCED TO 20MCG/MIN; SBP 130'S AND HR 72/MIN.
--- NOTE | 2018-10-09 10:40 | NUR ---
PATIENT FILLED OUT MENU FOR NEXT 3 MEALS.
--- NOTE | 2018-10-09 14:00 | NUR ---
BEDPAN FOR BM; HAD MEDIUM, FIRM, BROWN STOOL; SMALL AMOUT OF BLOOD NOTED ON OUTSIDE OF STOOL; APPEARS TO BE FROM HEMORROID; SMALL AMOUNT OF BLOOD FOUND ON WASH CLOTH WHEN RECTUM CLEANED (BRIGHT RED TO SEROSANGUINOUS).
--- NOTE | 2018-10-09 14:45 | NUR ---
DR. HARMON HERE; EVAL. PATIENT; DOES NOT PLAN TO DO INTERVENTION; PATIENT TO BE TREATED WITH MEDICATION, ETC. MAY CHANGE TO PCU STATUS ONCE NITRO DRIP TITRATED OFF AND SBP WITHIN MANAGEABLE RANGE.
--- NOTE | 2018-10-09 18:00 | NUR ---
SUMMARY: NO ACUTE CHANGES OTHER THAN NITRO DRIP WAS TITRATED DOWN TO 10MCG/MIN BUT SBP UP IN 180'S TO 200'S; DRIP CURRENTLY AT 15MCG/MIN. PATIENT DENIES C/O PAIN, ETC.
--- NOTE | 2018-10-09 18:15 | NUR ---
NITRO DRIP INCREASED TO 20MCG/MIN. PATIENT COMFORTABLE AND WATCHING TV. WILL REPORT TO ONCOMING RN. NOTE: MANNING OUTPUT 2210; LT. YELLOW TO ALMOST CLEAR IN COLOR.
--- NOTE | 2018-10-09 21:58 | NUR ---
CARE ASSUMED REPORT RECEIVED, CARE ASSUMED AT 1900. VITALS STABLE ON NITRO DRIP. SEE FLOWSHEET. PT DENIES CHEST PAIN. SEE SHIFT ASSESSMENT. PT CALLING APPROPRIATELY FOR NEEDS.
--- NOTE | 2018-10-10 06:26 | NUR ---
SUMMARY PT HAS CALLED APPROPRIATELY FOR NEEDS THROUGHOUT NIGHT. VITALS STABLE ON NITRO. TITRATED DOWN THIS MORNING, SEE FLOWSHEETS. NEW CARDIAC MEDS STARTED LAST NIGHT PER ORDERS. PT EDUCATED. PT ON HOME DOSE OF 2 LPM NASAL CANNULA THROUGHOUT NIGHT. PT TOLERATING ADL'S/REPOSITIONING.
--- NOTE | 2018-10-10 07:21 | NUR ---
REPORT TO COSTA KHAN TO ASSUME CARE
--- NOTE | 2018-10-10 13:10 | NUR ---
NITRO DRIP TITRATED DOWN TO 5MCG/MIN AT A RATE OF 3ML
--- NOTE | 2018-10-10 13:35 | NUR ---
NITRO DRIP TURNED OFF, PT BP 140/56, PULSE OF 60
--- NOTE | 2018-10-10 16:01 | NUR ---
SHIFT SUMMARY PT A&OX3, PLEASANTLY WAITING FOR TRANSFER TO MEDICAL FLOOR. PT HAS EXPIRATORY WHEEZES THROUGHOUT, CHRONIC MANNING IN PLACE WITH NO COMPLICATIONS. REPOSITIONING Q2HR, MINIMAL ASSIST. NITRO DRIP FOR HTN HAS BEEN STOPPED. PT BP HAS BEEN MAINTAINING BETWEEN 115/41 TO 120/45 SINCE DC OF NITRO DRIP @1335. CALL LIGHT IN REACH, BED IN LOWEST POSITION, PT RESTING COMFORTABLY.
--- NOTE | 2018-10-10 16:19 | NUR ---
Beverly was alone in room, sitting up in bed, and enjoying her lunch. She tells me she is feeling better and has no doubt she will be able to return home soon. She expressed gratitude for the care she has recieved at [facility]. she has a life-long jamil in a loving and present God that sustains her. I provided prayer at bedside. No concerns or fears presented. she says she has strong support of family. I will remain available.
--- NOTE | 2018-10-10 20:42 | NUR ---
CARE ASSUMED REPORT RECEIVED, CARE ASSUMED AT 1900 FROM COSTA KHAN. VITALS STABLE. SEE ASSESSMENT. PT DENIES NEEDS AT THIS TIME, AGREES TO USE CALL LIGHT FOR NEEDS.
--- NOTE | 2018-10-11 06:13 | NUR ---
SUMMARY NO ACUTE CHANGES THROUGHOUT SHIFT. VITALS STABLE, HEART RHYTHM NORMAL SINUS. PT HAS DENIED PAIN/DISCOMFORT THROUGHOUT NIGHT. ASSESSMENT UNCHANGED. PT EXPRESSED CONCERN ABOUT REPEAT EPISODES OF CHEST PAIN/DISCOMFORT AT HOME AND HOW TO KNOW THAT HER MEDICATIONS ARE DOING THEIR JOB. EXTENSIVE EDUCATION CONVERSATION WITH PT. PT STRUGGLED TO SLEEP UNTIL APPROX 0200, AND SINCE THEN HAS SLEPT SOUNDLY. PT HAS CALLED APPROPRIATELY FOR NEEDS THROUGHOUT NIGHT.
--- NOTE | 2018-10-11 07:12 | NUR ---
REPORT TO COSTA CUBA TO ASSUME CARE
--- NOTE | 2018-10-11 07:42 | NUR ---
ASSUMED CARE: PT RESTING QUIETLY IN BED. DENIES CHEST PAIN OR FURTHER CONCERNS. NSR AT 65 AT THIS TIME. NO FURTHER NEEDS AT THIS TIME
[2018-10-11] MEDS ORDERED: ACET325 PO (12:27)
[2018-10-11] MEDS ORDERED: BUDE.25 INH (12:28)
--- NOTE | 2018-10-11 16:24 | NUR ---
PT'S IV'S DC'D WNL. INSTRUCTIONS GIVEN TO PT AND DAUGHTER INCLUDING NEW MEDS AND MEDS TO CHANGE DOSEAGES ON. DIRECTED PT AND DAUGHTER TO DIRECT ANY QUESTIONS ABOUT PRESCRIPTIONS AND APPOINTMENTS TO PCP O2 CONNECTED TO PORTABLE TANK THAT WAS BROUGHT BY [facility]. PT TRANSFERRED VIA WHEEL CHAIR BY HOSPITAL STAFF. DC PLANNING STATES HOSPITAL BED SHOULD BE DELIVERED UPON APPOINTMENT TO PT'S HOME. DENIED FURTHER QUESTIONS OR CONCERNS.
== END 2018-10-11 16:20 | disposition home or self-care (01) | DRG 311 ==
LOC: ER 05:44 → ICUE 05:45 → ICUW 05:45 → ICUE 10:22
PROVIDERS: Emergency Medicine; ADMIT Internal Medicine Endocrinology, Diabetes & Metabolism
DX: I24.9 Acute ischemic heart disease, unspecified (principal); J96.21 Acute and chronic respiratory failure with hypoxia; J44.1 Chronic obstructive pulmonary disease with (acute) exacerbation; I25.10 Atherosclerotic heart disease of native coronary artery without angina pectoris; I12.9 Hypertensive chronic kidney disease with stage 1 through stage 4 chronic kidney disease, or unspecified chronic kidney disease; N18.3 Chronic kidney disease, stage 3 (moderate); I16.0 Hypertensive urgency; D63.8 Anemia in other chronic diseases classified elsewhere; E78.5 Hyperlipidemia, unspecified; E03.9 Hypothyroidism, unspecified; Z95.0 Presence of cardiac pacemaker; G47.33 Obstructive sleep apnea (adult) (pediatric); I73.9 Peripheral vascular disease, unspecified; M21.371 Foot drop, right foot; Z79.82 Long term (current) use of aspirin; Z95.5 Presence of coronary angioplasty implant and graft
CPT/HCPCS: 36415; 51702; 71046; 80053; 81001; 83880; 84484; 85025; 87086; 93005; 93010; 94640; 96365; 99285-25; J1650

== ENCOUNTER → 2018-10-27 | Outpatient (CLI) | payer MEDICARE, OTHER ==
[~2018-10-27] MED LIST changes: +ASPI325EC PO; +BUDE.25 INH
[2018-10-27 15:14] LABS: Source, Urine Catheter
[2018-10-27 18:06] LABS: Bilirubin, Urine Neg (Neg); Blood, Urine 1+ (Neg); Glucose Qualitative, Urine Neg (Neg); Ketones, Urine Neg (Neg); Leukocyte Esterase, Urine 3+ (Neg); Nitrite, Urine Neg (Neg); Protein, Urine 3+ (Neg); Urobilinogen, Urine NORM (Normal)
[2018-10-27 18:25] LABS: Appearance, Urine Clear (Clear); Color, Urine Pale Yellow (P-Yellow)
[2018-10-27 18:26] LABS: Amorphous Mod (0-Heavy); Bacteria Few /hpf; Mucus Light (0-Heavy); Squamous Epithelial Cells Mod /hpf (Few); White Blood Cells, Urine 25-50 /hpf (0-5)
== END | disposition home or self-care (01) ==
LOC: LAB SHORT 14:20 → LAB 14:20 → LAB FUT 10-27 12:45 → EDSTATUS 10-27 12:45
PROVIDERS: Nurse Practitioner Family
DX: N39.0 Urinary tract infection, site not specified (principal)
CPT/HCPCS: 81001; 87077; 87086; 87186

== ENCOUNTER 2019-01-12 06:40 | Emergency (ER) | payer MEDICARE, OTHER ==
[~2019-01-12] VITALS: Ht 162.6 cm; Wt 113.4 kg
[2019-01-12 07:10] LABS: BASOPHILS ABSOLUTE AUTO 0.05 K/mm3 (0.00-0.23); BASOPHILS PERCENT AUTO 1 % (0-2); EOSINOPHILS ABSOLUTE AUTO 0.39 K/mm3 (0.00-0.68); EOSINOPHILS PERCENT AUTO 4 % (0-6); Hematocrit 31.7 % (33.0-51.0); Hemoglobin 9.4 g/dL (11.5-16.0); IMMATURE GRAN ABSOLUTE AUTO 0.07 K/mm3 (0.00-0.10); IMMATURE GRAN PERCENT AUTO 1 % (0-1); LYMPHOCYTES ABSOLUTE AUTO 2.35 K/mm3 (0.84-5.20); LYMPHOCYTES PERCENT AUTO 23 % (21-46); MONOCYTES ABSOLUTE AUTO 0.71 K/mm3 (0.16-1.47); MONOCYTES PERCENT AUTO 7 % (4-13); Mean Corpuscular HGB 25.1 pg (26.0-34.0); Mean Corpuscular HGB Conc 29.7 g/dL (31.5-36.5); Mean Corpuscular Volume 85 fL (80-100); Mean Platelet Volume 10.7 fL (9.1-12.4); NEUTROPHILS ABSOLUTE AUTO 6.77 K/mm3 (1.96-9.15); NEUTROPHILS PERCENT AUTO 65 % (41-73); Platelet Count 257 K/mm3 (150-400); RDW Coefficient Variation 15.2 % (11.7-14.2); RDW Standard Deviation 46.4 fL (35.1-46.3); Red Blood Cell Count 3.75 M/mm3 (3.80-5.20); White Blood Cell Count 10.34 K/mm3 (4.00-11.30)
[2019-01-12 07:24] LABS: Alanine Aminotransfer (ALT/SGP 19 U/L (12-78); Albumin, Blood 2.8 g/dL (3.4-5.0); Albumin/Globulin Ratio 0.8 (0.8-1.8); Alk Phos 75 U/L (50-136); Anion Gap 8 mmol/L (6-16); Aspartate Aminotrans (AST/SGOT 14 U/L (12-37); Bilirubin, Total 0.1 mg/dL (0.1-1.0); Blood Urea Nitrogen 48 mg/dL (8-24); Bun/Creatinine Ratio 33.1 (12.0-20.0); CO2, Blood 25 mmol/L (21-32); Calcium, Blood 8.8 mg/dL (8.5-10.1); Chloride, Blood 105 mmol/L (98-108); Creatinine, Blood 1.45 mg/dL (0.40-1.00); Globulin, Blood 3.5 g/dL (2.2-4.0); Glomerular Filtration Rate 37 (60-); Glucose, Blood 100 mg/dL (70-99); Potassium, Blood 4.5 mmol/L (3.5-5.5); Sodium, Blood 138 mmol/L (136-145); Total Protein, Blood 6.3 g/dL (6.4-8.2); Troponin I <0.015 ng/mL (0.000-0.040)
== END 2019-01-12 12:34 | disposition home or self-care (01) ==
LOC: ER 06:40
PROVIDERS: Emergency Medicine
DX: R07.9 Chest pain, unspecified (principal); J44.9 Chronic obstructive pulmonary disease, unspecified; I10 Essential (primary) hypertension; E11.9 Type 2 diabetes mellitus without complications; I25.2 Old myocardial infarction; Z87.891 Personal history of nicotine dependence; Z88.2 Allergy status to sulfonamides; Z88.5 Allergy status to narcotic agent; Z88.8 Allergy status to other drugs, medicaments and biological substances; Z79.899 Other long term (current) drug therapy
CPT/HCPCS: 71046; 80053; 83690; 83880; 84484; 85025; 93005; 93010; 94640; 99285-25

== ENCOUNTER → 2019-07-01 | Outpatient (CLI) | payer MEDICARE, OTHER | LOC: OLS 12:09 → LAB SHORT 12:09 | DX: Z46.6 Encounter for fitting and adjustment of urinary device (principal); N18.3 Chronic kidney disease, stage 3 (moderate); J96.12 Chronic respiratory failure with hypercapnia; G62.9 Polyneuropathy, unspecified | CPT/HCPCS: 87070; 87205 ==

== ENCOUNTER 2019-08-03 01:16 | Inpatient (IN) | payer MEDICARE, OTHER ==
[~2019-08-03] VITALS: Ht 162.6 cm; Wt 108.8 kg
[~2019-08-03 01:16] MED LIST changes: -ASPI81CH PO; +Aspir 8181 MG PO; -BUDE.25 INH; +Budesonide0.5 MG/2 M NEB; +EUTHYROX175 MCG PO; -FURO20 PO; +ISOSORBIDE MONO60 MG PO; -Isosorbide Mono30 MG PO; +METO50ER PO; +POTA10T PO; +ZESTRIL40 M1 PO
[2019-08-03 02:08] LABS: BASOPHILS ABSOLUTE AUTO 0.06 K/mm3 (0.00-0.23); BASOPHILS PERCENT AUTO 1 % (0-2); EOSINOPHILS PERCENT AUTO 2 % (0-6); Hematocrit 30.6 % (33.0-51.0); IMMATURE GRAN PERCENT AUTO 1 % (0-1); LYMPHOCYTES ABSOLUTE AUTO 1.32 K/mm3 (0.84-5.20); LYMPHOCYTES PERCENT AUTO 10 % (21-46); MONOCYTES ABSOLUTE AUTO 0.44 K/mm3 (0.16-1.47); MONOCYTES PERCENT AUTO 3 % (4-13); Mean Corpuscular HGB 25.1 pg (26.0-34.0); Mean Corpuscular HGB Conc 29.4 g/dL (31.5-36.5); Mean Corpuscular Volume 86 fL (80-100); Mean Platelet Volume 10.7 fL (9.1-12.4); NEUTROPHILS ABSOLUTE AUTO 10.86 K/mm3 (1.96-9.15); NEUTROPHILS PERCENT AUTO 84 % (41-73); Platelet Count 244 K/mm3 (150-400); RDW Coefficient Variation 15.7 % (11.7-14.2); Red Blood Cell Count 3.58 M/mm3 (3.80-5.20); White Blood Cell Count 12.98 K/mm3 (4.00-11.30)
[2019-08-03 02:10] LABS: Albumin, Blood 2.9 g/dL (3.4-5.0); Albumin/Globulin Ratio 0.8 (0.8-1.8); Bilirubin, Total 0.1 mg/dL (0.1-1.0); Bun/Creatinine Ratio 34.3 (12.0-20.0); Calcium, Blood 9.1 mg/dL (8.5-10.1); Creatinine, Blood 1.37 mg/dL (0.40-1.00); Globulin, Blood 3.5 g/dL (2.2-4.0); Potassium, Blood 4.4 mmol/L (3.5-5.5); Total Protein, Blood 6.4 g/dL (6.4-8.2); Troponin I 0.024 ng/mL (0.000-0.040)
[2019-08-03 10:03] LABS: International Normalized Ratio 0.98; Prothrombin Time Results 10.5 Sec (9.7-11.5)
[2019-08-03] MEDS ORDERED: Duoneb 2.5-0.5 M3 ML NEB (12:22)
[2019-08-03] MEDS ORDERED: FUROSEMIDE40 MG PO (12:24)
[2019-08-03] MEDS ORDERED: POTASSIUM CHLO10 MEQ PO (12:25)
[2019-08-03] MEDS ORDERED: Keflex250 MG PO (12:26)
[2019-08-03 13:35] LABS: Source, Urine Catheter
[2019-08-03 13:41] LABS: Bilirubin, Urine Neg (Neg); Blood, Urine 2+ (Neg); Glucose Qualitative, Urine Neg (Neg); Ketones, Urine Neg (Neg); Leukocyte Esterase, Urine 3+ (Neg); Nitrite, Urine Neg (Neg); Protein, Urine 2+ (Neg); Specific Gravity, Urine 1.015 (1.003-1.022); Urobilinogen, Urine NORM (Normal)
[2019-08-03 14:02] LABS: Troponin I 2.42 ng/mL (0.000-0.040)
[2019-08-03 14:03] LABS: Appearance, Urine Hazy (Clear); Color, Urine Pale Yellow (P-Yellow)
[2019-08-03 14:06] LABS: White Blood Cells, Urine 50-100 /hpf (0-5)
[2019-08-03 14:07] LABS: Bacteria Few /hpf; Squamous Epithelial Cells Not Seen /hpf (Few)
[2019-08-03 14:10] LABS: Creatine Kinase MB 17.9 ng/mL (0.0-3.6); Creatine Kinase MB Index 5.2 (0.0-4.0)
--- NOTE | 2019-08-03 18:06 | NUR ---
SHIFT NOTE PT RETURNED FROM [facility] WITH ULNAR ACCESS TO RT WRIST. TR BAND INPLCE WITH 9ML AIR. NO ACTIVE BLEEDING NOTED TO ACESS SITE. PULSES INTACT. DIFFICULT TO OBTAIN BP FOR VITAL MONITORING POST PROCEDURE. PT A/O X4, DROWSY FALLS ASLEEP OFTEN. CP RATED 3/10. PCI WAS UNSUCCESSFUL AT RELIEVEING BLOCKAGE, PT REFUSED FEMORAL ACCESS R/T BACK PAIN
--- NOTE | 2019-08-03 18:27 | NUR ---
Patient gave student nurse permission to provide care on 08/03/2019.
--- NOTE | 2019-08-03 20:26 | NUR ---
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
[2019-08-03 22:08] LABS: Troponin I 3.42 ng/mL (0.000-0.040)
[2019-08-03 22:30] LABS: Creatine Kinase MB 11.4 ng/mL (0.0-3.6); Creatine Kinase MB Index 2.1 (0.0-4.0)
--- NOTE | 2019-08-03 22:59 | NUR ---
lab called cv anita 3.42, chest is tight 11/04, called ordered nitro paste on chest, awaiting verification by pharmacy
[2019-08-04 03:56] LABS: BASOPHILS ABSOLUTE AUTO 0.03 K/mm3 (0.00-0.23); BASOPHILS PERCENT AUTO 0 % (0-2); EOSINOPHILS ABSOLUTE AUTO 0.21 K/mm3 (0.00-0.68); EOSINOPHILS PERCENT AUTO 2 % (0-6); Hematocrit 27.1 % (33.0-51.0); Hemoglobin 7.9 g/dL (11.5-16.0); IMMATURE GRAN ABSOLUTE AUTO 0.05 K/mm3 (0.00-0.10); IMMATURE GRAN PERCENT AUTO 1 % (0-1); LYMPHOCYTES ABSOLUTE AUTO 1.51 K/mm3 (0.84-5.20); LYMPHOCYTES PERCENT AUTO 17 % (21-46); MONOCYTES ABSOLUTE AUTO 0.63 K/mm3 (0.16-1.47); MONOCYTES PERCENT AUTO 7 % (4-13); Mean Corpuscular HGB 25.4 pg (26.0-34.0); Mean Corpuscular HGB Conc 29.2 g/dL (31.5-36.5); Mean Corpuscular Volume 87 fL (80-100); Mean Platelet Volume 10.9 fL (9.1-12.4); NEUTROPHILS PERCENT AUTO 73 % (41-73); Platelet Count 218 K/mm3 (150-400); RDW Coefficient Variation 15.9 % (11.7-14.2); RDW Standard Deviation 50.5 fL (35.1-46.3); Red Blood Cell Count 3.11 M/mm3 (3.80-5.20); White Blood Cell Count 8.83 K/mm3 (4.00-11.30)
[2019-08-04 04:14] LABS: Albumin, Blood 2.5 g/dL (3.4-5.0); Albumin/Globulin Ratio 0.8 (0.8-1.8); Bilirubin, Total 0.3 mg/dL (0.1-1.0); Bun/Creatinine Ratio 22.2 (12.0-20.0); Calcium, Blood 8.8 mg/dL (8.5-10.1); Creatinine, Blood 1.53 mg/dL (0.40-1.00); Globulin, Blood 3.1 g/dL (2.2-4.0); Potassium, Blood 4.3 mmol/L (3.5-5.5); Total Protein, Blood 5.6 g/dL (6.4-8.2)
--- NOTE | 2019-08-04 06:35 | NUR ---
a+o, sitting up most of the shift doszing watching reality crime shows, call light in reach, abx infused with no s/sx of infection or infiltration, rm air, chest pain has resolved, NPO in preperation for for intevention, will continue to monitor and treat until share bsr with returning staff and pt
--- NOTE | 2019-08-04 07:41 | NUR ---
PT HAS DECIDED THAT SHE DOES NOT WISH TO GO FOR ANGIO THIS AM, DR SAY BE WAS LEFT THAT PT DOES NOT WISH TO GO FOR PROCEDURE THIS AM
--- NOTE | 2019-08-04 12:53 | NUR ---
CONSULT CALLED TO DR GOODMAN'S RN LAWSON
--- NOTE | 2019-08-04 16:35 | NUR ---
pt's iv is no longer patent can not administer zosyn at this time, awaiting powerlgide
--- NOTE | 2019-08-04 18:04 | NUR ---
SHIFT NOTE PT REFUSED ANGIO THIS AM SHE STATED SHE DID NOT FEEL WELL. PT REPORTS C/O CP 09/04 THAT IS UNCHANGED TODAY. PT IS A/O X4, FREQUENTLY DROWSY. PT WAS SEEN BY DR GOODMAN THIS EVENING FOR CONSULTED FOR WAYLON, PT WAS UPDATED BY DR GOODMAN THAT SHE IS NOT A SURGICAL CANDIDATE AT THIS TIME R/T HER CAD. THIS EVENING PT STS THAT SHE WOULD LIKE TO ATTEMPT ANGIO NOW, DR KING IS CONSULTED HE RECOMMENDS TO CALL DR DEAL IN THE AM. PT OTHERWISE HAS NOT HAD ANY ACUTE CHANGES T/O THIS SHIFT. BP REMAINS WITH WIDE PRESSURE, WHICH IS SLIGHTLY SPORATIC
--- NOTE | 2019-08-05 00:52 | NUR ---
START OF SHIFT: BEDSIDE REPORT FROM TANIKA SKELTON. PT A+O, VSS. PT C/ NO COMPLAINTS AT START OF SHIFT. PT LATER C/O "GALLBLADDER PAIN" AND REQUESTED SPRITE SODA. PT STATED RELIEF AFTER "BURPING". PT OTHERWISE IS APPROPRIATE. CALL LIGHT WITHIN REACH.
[2019-08-05 04:13] LABS: BASOPHILS ABSOLUTE AUTO 0.04 K/mm3 (0.00-0.23); BASOPHILS PERCENT AUTO 1 % (0-2); EOSINOPHILS PERCENT AUTO 4 % (0-6); Hematocrit 27.5 % (33.0-51.0); Hemoglobin 7.7 g/dL (11.5-16.0); IMMATURE GRAN ABSOLUTE AUTO 0.06 K/mm3 (0.00-0.10); IMMATURE GRAN PERCENT AUTO 1 % (0-1); LYMPHOCYTES ABSOLUTE AUTO 2.06 K/mm3 (0.84-5.20); LYMPHOCYTES PERCENT AUTO 24 % (21-46); MONOCYTES ABSOLUTE AUTO 0.71 K/mm3 (0.16-1.47); MONOCYTES PERCENT AUTO 8 % (4-13); Mean Corpuscular HGB 24.9 pg (26.0-34.0); Mean Corpuscular Volume 89 fL (80-100); Mean Platelet Volume 11.2 fL (9.1-12.4); NEUTROPHILS ABSOLUTE AUTO 5.36 K/mm3 (1.96-9.15); NEUTROPHILS PERCENT AUTO 63 % (41-73); Platelet Count 200 K/mm3 (150-400); RDW Coefficient Variation 16.1 % (11.7-14.2); RDW Standard Deviation 52.4 fL (35.1-46.3); Red Blood Cell Count 3.09 M/mm3 (3.80-5.20); White Blood Cell Count 8.53 K/mm3 (4.00-11.30)
[2019-08-05 04:36] LABS: Albumin, Blood 2.4 g/dL (3.4-5.0); Albumin/Globulin Ratio 0.8 (0.8-1.8); Bilirubin, Total 0.3 mg/dL (0.1-1.0); Bun/Creatinine Ratio 24.2 (12.0-20.0); Calcium, Blood 8.8 mg/dL (8.5-10.1); Creatinine, Blood 1.61 mg/dL (0.40-1.00); Globulin, Blood 3.1 g/dL (2.2-4.0); Potassium, Blood 3.8 mmol/L (3.5-5.5); Total Protein, Blood 5.5 g/dL (6.4-8.2)
[2019-08-05 04:45] LABS: Thyroid Stimulating Hormone 0.018 uIU/mL (0.360-4.800)
[2019-08-05 05:06] LABS: Troponin I 3.06 ng/mL (0.000-0.040)
--- NOTE | 2019-08-05 17:48 | NUR ---
SHIFT NOTE PT HAD REFUSED ANGIO YESTERDAY THEN STATED THAT SHE WOULD LIKE TO GO FOR ANGIO, DR KING WAS CONSULTED AGAIN THIS AM, DR DEAL AND DR CALVILLO WERE BOTH CONSULTED WHICH AGREED THAT PT SHOULD BE MEDICALLY MANAGED, DR JAMES HAD CONSULTED YESTERDAY WHICH STATED THAT PT WAS NOT A SURGICAL CANDIDATE. PT HAS BEEN ALERT BUT FRQUENTLY DROWSY T/O THE DAY. VSS. SKIN INTACT. PUNTURE SITE TO RT WRIST WITH NO ACUTE CHANGES. PT'S IV HAS AGAIN FAILED, BLANCA RN IS AT BEDSIDE ATTEMPTING POWERGLIDE. PT HAD NO COMPLAINTS OF CP TODAY. STS THAT SOB HAS NOT CHANGED, LS ARE NOT GREATLY CHANGED FROM YESTERDAY. MANNING IS DRAINING WELL TO GRAVITY
[2019-08-06 04:53] LABS: BASOPHILS ABSOLUTE AUTO 0.03 K/mm3 (0.00-0.23); BASOPHILS PERCENT AUTO 0 % (0-2); EOSINOPHILS PERCENT AUTO 4 % (0-6); Hematocrit 25.6 % (33.0-51.0); Hemoglobin 7.8 g/dL (11.5-16.0); IMMATURE GRAN ABSOLUTE AUTO 0.05 K/mm3 (0.00-0.10); IMMATURE GRAN PERCENT AUTO 1 % (0-1); LYMPHOCYTES ABSOLUTE AUTO 2.12 K/mm3 (0.84-5.20); LYMPHOCYTES PERCENT AUTO 22 % (21-46); MONOCYTES ABSOLUTE AUTO 0.55 K/mm3 (0.16-1.47); MONOCYTES PERCENT AUTO 6 % (4-13); Mean Corpuscular HGB 25.8 pg (26.0-34.0); Mean Corpuscular HGB Conc 30.5 g/dL (31.5-36.5); Mean Corpuscular Volume 85 fL (80-100); Mean Platelet Volume 10.7 fL (9.1-12.4); NEUTROPHILS ABSOLUTE AUTO 6.35 K/mm3 (1.96-9.15); NEUTROPHILS PERCENT AUTO 67 % (41-73); Platelet Count 205 K/mm3 (150-400); RDW Standard Deviation 49.9 fL (35.1-46.3); Red Blood Cell Count 3.02 M/mm3 (3.80-5.20)
[2019-08-06 05:16] LABS: Albumin, Blood 2.4 g/dL (3.4-5.0); Albumin/Globulin Ratio 0.8 (0.8-1.8); Bilirubin, Total 0.4 mg/dL (0.1-1.0); Calcium, Blood 8.7 mg/dL (8.5-10.1); Creatinine, Blood 1.44 mg/dL (0.40-1.00); Globulin, Blood 3.1 g/dL (2.2-4.0); Potassium, Blood 3.6 mmol/L (3.5-5.5); Total Protein, Blood 5.5 g/dL (6.4-8.2)
[2019-08-06 05:33] LABS: Troponin I 1.82 ng/mL (0.000-0.040)
--- NOTE | 2019-08-06 06:09 | NUR ---
END OF SHIFT SUMMARY NO ACUTE CHANGHES. VSS. PT HAS REQUIRED SOME PRN RT TREATEMENTS. HAD ISSUES WITH GAS PAIN AND WAS HAVING BOUTS OF DIARRHEA, NONLIQUID. MEDS ORDERED AND RECEIVED AND GIVEN. THESE INSTANCES HAVE RESOLVED. MANNING REMAINS IN PLACE AND PATIENT. HAS DENIED CP ALL NIGHT. HGB STABLE. TROP TRENDING DOWN. HAS SLEPT OFF AND ON T/O THE NIGHT. HAS BEEN UP TO BSC THIS SHIFT. WILL CONTINUE TO MONITOR UNTIL SHIFT CHANGE
--- NOTE | 2019-08-06 17:45 | NUR ---
SHIFT SUMMARY: PT ALERT ANF ORIENTED X 4. PT IS HERE FOR NSTEMI. HRR NSR ON THE 65'S VITALS REMAINED STABLE, EXPIRATORY WHEEZES NOTED UPON AUSCULTATION, PT BENEFITS FROM BREATHING TX WITH RT. PT C/O ABDOMINAL PAIN D/T GALLBLADDER ISSUES, NO NVM REPORTED, TYLENOL GIVEN AND EFFECTIVE. PT CONTINUES TO C/O DIARRHEA LYLA. WHEN COUGHING, DR KING SAW PT TODAY ORDERED LOPERAMIDE PRN FOR DIARRHEA AND DISCUSSED WITH THE PATIENT ABOUT MEDICATION MANAGEMENT FOR NOW AND FOR THE CARDIOLOGISTS TO DECIDE ABOUT RE-ATTEMPT OF ANGIOGRAM PROCEDURE. STOOL CONSISTENCY WAS LOOSE AND SOFT, NOT WATERY/MUCOUSY. DR. BARTON SAW PT WELL REGARDING PT'S POSSIBLE RE-ATTEMPT OF ANGIOGRAM IN THE AM, PT TO BE NPO AT MIDNIGHT TO DISCUSS WITH ANOTHER CARDIOLOGISTS IN THE AM. PT CONTINUES ON IV ABO FOR CHOLECYSTITIS. PT REPOSITIONED AND MADE COMFORTABLE IN BED, PT CURRENTLY RESTING IN BED WITH CALL LIGHTS WITHIN REACH, WILL MONITOR, TO GIVE REPORT TO ONCOMING POMOLOGY TEACHER.
[2019-08-07 04:48] LABS: BASOPHILS ABSOLUTE AUTO 0.02 K/mm3 (0.00-0.23); BASOPHILS PERCENT AUTO 0 % (0-2); EOSINOPHILS ABSOLUTE AUTO 0.45 K/mm3 (0.00-0.68); EOSINOPHILS PERCENT AUTO 5 % (0-6); Hematocrit 25.5 % (33.0-51.0); Hemoglobin 7.7 g/dL (11.5-16.0); IMMATURE GRAN ABSOLUTE AUTO 0.06 K/mm3 (0.00-0.10); IMMATURE GRAN PERCENT AUTO 1 % (0-1); LYMPHOCYTES PERCENT AUTO 21 % (21-46); MONOCYTES ABSOLUTE AUTO 0.51 K/mm3 (0.16-1.47); MONOCYTES PERCENT AUTO 6 % (4-13); Mean Corpuscular HGB 25.7 pg (26.0-34.0); Mean Corpuscular HGB Conc 30.2 g/dL (31.5-36.5); Mean Corpuscular Volume 85 fL (80-100); Mean Platelet Volume 10.8 fL (9.1-12.4); NEUTROPHILS ABSOLUTE AUTO 6.28 K/mm3 (1.96-9.15); NEUTROPHILS PERCENT AUTO 68 % (41-73); Platelet Count 212 K/mm3 (150-400); RDW Coefficient Variation 16.1 % (11.7-14.2); White Blood Cell Count 9.22 K/mm3 (4.00-11.30)
[2019-08-07 05:07] LABS: Albumin, Blood 2.4 g/dL (3.4-5.0); Albumin/Globulin Ratio 0.8 (0.8-1.8); Bilirubin, Total 0.2 mg/dL (0.1-1.0); Bun/Creatinine Ratio 23.6 (12.0-20.0); Calcium, Blood 8.7 mg/dL (8.5-10.1); Creatinine, Blood 1.44 mg/dL (0.40-1.00); Globulin, Blood 3.2 g/dL (2.2-4.0); Potassium, Blood 3.8 mmol/L (3.5-5.5); Total Protein, Blood 5.6 g/dL (6.4-8.2)
--- NOTE | 2019-08-07 06:28 | NUR ---
END OF SHIF SUMAMRY NO ACUTE CHANGES THIS SHIFT. VSS. HAS HAD BOUTS OF GAS PAINS, SIMETYHICONE RELIEVES WELL. HAS BEEN NPO SINCE 0000. HAS HAD MUCH LES DIARRHEA THIS SHIFT THAN LAST. AWAITING TO SEE IF SHE WILL HAVE ANGIO TODAY. HAS SLEPT OFF AND ON T/O SHIFT. WILL CONTINUE TO MONITOR UNTIL SHIFT CHANGE.
--- NOTE | 2019-08-07 15:53 | NUR ---
PATIENT PERMISSION PATIENT GAVE THIS STUDENT NURSE PERMISSION TO PROVIDE CARE ON 08/07/2019 FROM [id number].
--- NOTE | 2019-08-07 19:17 | NUR ---
SHIFT SUMMARY: PT ALERT AND ORIENTED TO BASELINE, HRR REMAINED SR AT 65'S THE REST OF THE VITALS ARE STABLE. SATS KEPT ABOVE 90% ON ROOMAIR DYSPNEA ON EXERTION, BREATHING TX PER RT PROVIDED. EXPIRATORY WHEEZES NOTED UPON AUSCULTATION. PT CONTINUES TO RECEIVED IV ANTIBIOTIC FOR CHOLECYSTITIS. PT WAS SEEN BY DR. DEAL TODAY DISCUSSED AND AGREED TO PROCEED WITH ANGIOGRAM PROCEDURE PT LEFT THE UNIT AT AROUND 1330 CAME BACK AFTER 1600. VITALS REMAINED STABLE POST PROCEDURE TR BAND IN PLACE ON RIGHT ARM WITH 16CC OF AIR, NO ISSUES/ABNORMALITIES/BLEEDING NOTED ON RIGHT ARM PULLED 10CC OF AIR AND SURRENTLY HAS 6CC ON THE TR BAND WITHOUT ANY ISSUES. NO REPORTED DIARRHEA FOR THE SHIFT, IMMODIUM GIVEN AT THE BEGINNING AND THE END OF THE SHIFT. REPORT GIVEN TO ONCOMING SHIFT NURSE.
--- NOTE | 2019-08-08 05:59 | NUR ---
END OF SHIFT SUMMARY NO ACUTE CHANGES. VSS, HYDRALZINE TN X1 ADMINIWSTERED. TR BAND COMPLETED AND OFF @2205L. BRUISING AT SITE. PT HAS COMPLAINED AT TIMES IN HER ARM PROXIMAL TO THE SITE. MULTI CRAFT MAINTENANCE TECHNICIAN NELIA TO ROOM WITH THIS RN TO ASSESS THE SITE FOR ARTERIAL LEAK. BRUSISING NOTED AND TENDERNESS NOTED. PRESENTS WITHOUT ANY LARGE MASSES TO [place]. HAVE MONITORED THIS AREA CLOSELY T/O THE NIGHT. ARMBOARD IN PLACE. HAS REQUIRED PRN SIMETHICONE FOR GAS/GALLBLADDER. WILL CONTINUE TO MONITOR UNTIL SHIFT CHANGE.
--- NOTE | 2019-08-08 18:21 | NUR ---
SHIFT SUMMARY: PT ALERT AND ORIENTED TO BASELINE, HRR NSR AT 60'S DENIES CHEST PAIN FOR CANDIE SHIFT. EXPIRATORY WHEEZES NOTED DR ZAIDI ORDERED TO DC LASIX PO AND SWITCH TO IV, BREATHING TX ALSO PROVIDED BY RT WAS EFFECTIVE SATS KEPT ABOVE 90%. OT TO EVAL AND TREAT ORDERED WELL, PT REFUSED TO PARTICIPATE WITH PT THIS AM WOULD LIKE TO TRY TOMORROW. 1 PRBC WAS ORDERED WELL DUE TO LOW HGB 7.7 WITH TYPE AND CROSS PRIOR TO INFUSION. PT CURRENTLY INFUSING WITH 1PRBC, VITALS REMAINED STABLE NO ISSUES ENCOUNTERED 15 MINS SINCE THE START OF INFUSION. DR DEAL TALKED TO THE PT WELL TO THINK ABOUT CONSIDERING RECOMMENDED HEART SURGERY, DR DEAL TO FOLLOW UP WITH THE PT TOMORROW FOR POSSIBLE TRANSFER TO [facility] FOR THE SURGERY. PT CURRENTLY RESTING IN BED CALL LIGHTS WITHIN REACH. WILL MONITOR
--- NOTE | 2019-08-09 03:41 | NUR ---
CARDIZEM GTT OFF. PT CONVERTED TO NSR
--- NOTE | 2019-08-09 04:53 | NUR ---
shift summary PT SLEEING IN ROOM COMFORTABLY AT THIS TIME. NO ACUTE CHANGES IN STATUS T/O NIGHT. PT SLEPT WELL. DENIED ANY CP. PT WAS DYSPNIC UPON WAKING AT 0400 CALLED RT FOR BREATHING TX. PT REPORTED BETTER. RESP EVEN UNLABORED AT REST W/ SATS >92% ON RA. PE DENIED OTHER NEEDS. ATTENDS IN PLACE C/D/I, MANNING CATH DRAINING CLEAR YELLOW URINE. CALL LIGHT IN REACH.
--- NOTE | 2019-08-09 07:28 | NUR ---
ASSUMED CARE: PT RESTING QUIETLY AT THIS TIME. NO ACUTE NEEDS OR CONCERNS NOTED AT THIS TIME.
[2019-08-09 14:20] LABS: Hematocrit 29.6 % (33.0-51.0); Hemoglobin 8.9 g/dL (11.5-16.0); Mean Corpuscular HGB 25.4 pg (26.0-34.0); Mean Corpuscular HGB Conc 30.1 g/dL (31.5-36.5); Mean Corpuscular Volume 84 fL (80-100); Mean Platelet Volume 10.8 fL (9.1-12.4); Platelet Count 233 K/mm3 (150-400); RDW Coefficient Variation 16.1 % (11.7-14.2); RDW Standard Deviation 49.3 fL (35.1-46.3); Red Blood Cell Count 3.51 M/mm3 (3.80-5.20); White Blood Cell Count 9.61 K/mm3 (4.00-11.30)
[2019-08-09 14:34] LABS: Bun/Creatinine Ratio 26.4 (12.0-20.0); Calcium, Blood 8.8 mg/dL (8.5-10.1); Creatinine, Blood 1.74 mg/dL (0.40-1.00); Potassium, Blood 4.5 mmol/L (3.5-5.5)
--- NOTE | 2019-08-09 16:14 | NUR ---
PT TRANSPORTED TO [facility] VIA [facility]. PT ALERT AND ORIENTED, DAUGHTERS CALLED AND AWARE OF PT'S ROOM ASSIGNMENT. REPORT CALLED TO [facility]. TRANSFERRED VIA [facility]
== END 2019-08-09 16:01 | disposition home or self-care (01) | DRG 280 ==
LOC: ER 01:16 → ERHOLD 01:17 → PCU 01:17 → ERHOLD 01:17 → PCU 11:52
PROVIDERS: Emergency Medicine; Family Medicine; Internal Medicine; Internal Medicine Gastroenterology; Pharmacist; ADMIT Internal Medicine
PROC: B2111ZZ Fluoroscopy of Multiple Coronary Arteries using Low Osmolar Contrast (ICD-10-PCS; principal; 2019-08-07)
DX: I21.4 Non-ST elevation (NSTEMI) myocardial infarction (principal); J96.22 Acute and chronic respiratory failure with hypercapnia; J96.11 Chronic respiratory failure with hypoxia; K81.0 Acute cholecystitis; Z68.41 Body mass index [BMI] 40.0-44.9, adult; D62 Acute posthemorrhagic anemia; I16.0 Hypertensive urgency; R07.89 Other chest pain; I25.10 Atherosclerotic heart disease of native coronary artery without angina pectoris; I25.2 Old myocardial infarction; Z79.82 Long term (current) use of aspirin; J44.9 Chronic obstructive pulmonary disease, unspecified; Z87.891 Personal history of nicotine dependence; E03.9 Hypothyroidism, unspecified; Z74.01 Bed confinement status; N18.3 Chronic kidney disease, stage 3 (moderate); G47.33 Obstructive sleep apnea (adult) (pediatric); E66.01 Morbid (severe) obesity due to excess calories; I12.9 Hypertensive chronic kidney disease with stage 1 through stage 4 chronic kidney disease, or unspecified chronic kidney disease
CPT/HCPCS: 36415; 36430; 51702; 71046; 76705; 76937; 80048; 80053; 81001; 82550; 82553; 83690; 83735; 83880; 84443; 84484; 85025; 85027; 85347; 85610; 85730; 86850; 86900; 86901; 86923; 92978; 93005; 93010; 93306; 93454; 93571; 94640; 94760; 96361; 96365-59; 96366; 96367; 96375-59; 96376; 97162; 99152; 99153; 99285-25; A9270; A9270-GY; C1751; C1769; C1887; C1894; G0378; J0360; J1644; J1940; J2250; J2270; J2405; J2543; J7030; P9016; Q9967

== ENCOUNTER 2019-09-23 10:05 | Emergency (ER) | payer MEDICARE, OTHER ==
[~2019-09-23] VITALS: Ht 160 cm; Wt 113.4 kg
[~2019-09-23 10:05] MED LIST changes: +Duoneb 2.5-0.5 M3 ML NEB; +FUROSEMIDE40 MG PO; +Keflex250 MG PO; +POTASSIUM CHLO10 MEQ PO
[2019-09-23] MEDS ORDERED: CIPR500 PO (10:28)
[2019-09-23 10:44] LABS: BASOPHILS ABSOLUTE AUTO 0.05 K/mm3 (0.00-0.23); BASOPHILS PERCENT AUTO 0 % (0-2); EOSINOPHILS PERCENT AUTO 2 % (0-6); Hematocrit 32.5 % (33.0-51.0); Hemoglobin 9.7 g/dL (11.5-16.0); IMMATURE GRAN ABSOLUTE AUTO 0.06 K/mm3 (0.00-0.10); IMMATURE GRAN PERCENT AUTO 1 % (0-1); LYMPHOCYTES ABSOLUTE AUTO 1.48 K/mm3 (0.84-5.20); LYMPHOCYTES PERCENT AUTO 12 % (21-46); MONOCYTES ABSOLUTE AUTO 0.49 K/mm3 (0.16-1.47); MONOCYTES PERCENT AUTO 4 % (4-13); Mean Corpuscular HGB 26.4 pg (26.0-34.0); Mean Corpuscular HGB Conc 29.8 g/dL (31.5-36.5); Mean Corpuscular Volume 88 fL (80-100); Mean Platelet Volume 10.8 fL (9.1-12.4); NEUTROPHILS ABSOLUTE AUTO 9.93 K/mm3 (1.96-9.15); NEUTROPHILS PERCENT AUTO 81 % (41-73); Platelet Count 212 K/mm3 (150-400); RDW Coefficient Variation 16.3 % (11.7-14.2); RDW Standard Deviation 52.5 fL (35.1-46.3); Red Blood Cell Count 3.68 M/mm3 (3.80-5.20); White Blood Cell Count 12.31 K/mm3 (4.00-11.30)
[2019-09-23 11:05] LABS: Albumin, Blood 2.8 g/dL (3.4-5.0); Albumin/Globulin Ratio 0.8 (0.8-1.8); Bilirubin, Total 0.1 mg/dL (0.1-1.0); Bun/Creatinine Ratio 34.4 (12.0-20.0); Creatinine, Blood 1.25 mg/dL (0.40-1.00); Globulin, Blood 3.3 g/dL (2.2-4.0); Potassium, Blood 4.2 mmol/L (3.5-5.5); Total Protein, Blood 6.1 g/dL (6.4-8.2); Troponin I 0.019 ng/mL (0.000-0.040)
[2019-09-23] MEDS ORDERED: Isosorbide Mono30 MG PO (12:16)
[2019-09-23] MEDS ORDERED: Ultram50 MG PO (12:16)
== END 2019-09-23 13:09 | disposition home or self-care (01) ==
LOC: ER 10:05
PROVIDERS: Emergency Medicine
DX: R07.9 Chest pain, unspecified (principal); I25.10 Atherosclerotic heart disease of native coronary artery without angina pectoris; I25.2 Old myocardial infarction; I10 Essential (primary) hypertension; E11.9 Type 2 diabetes mellitus without complications; J44.9 Chronic obstructive pulmonary disease, unspecified; E03.9 Hypothyroidism, unspecified; G47.30 Sleep apnea, unspecified; Z88.2 Allergy status to sulfonamides; Z88.8 Allergy status to other drugs, medicaments and biological substances; Z88.5 Allergy status to narcotic agent; Z91.018 Allergy to other foods; Z79.899 Other long term (current) drug therapy; Z79.82 Long term (current) use of aspirin; Z79.01 Long term (current) use of anticoagulants; Z79.51 Long term (current) use of inhaled steroids; Z87.891 Personal history of nicotine dependence
CPT/HCPCS: 71045; 80053; 83880; 84484; 85025; 93005; 93010; 96374; 99285-25; J2270

== ENCOUNTER 2020-01-22 12:47 | Observation (INO) | payer MEDICARE, OTHER ==
[~2020-01-22] VITALS: Ht 160 cm; Wt 113.4 kg
[~2020-01-22 12:47] MED LIST changes: +Isosorbide Mono30 MG PO; +Ultram50 MG PO
[2020-01-22 13:36] LABS: BASOPHILS ABSOLUTE AUTO 0.06 K/mm3 (0.00-0.23); BASOPHILS PERCENT AUTO 1 % (0-2); EOSINOPHILS ABSOLUTE AUTO 0.48 K/mm3 (0.00-0.68); EOSINOPHILS PERCENT AUTO 5 % (0-6); Hematocrit 29.7 % (33.0-51.0); Hemoglobin 8.8 g/dL (11.5-16.0); IMMATURE GRAN ABSOLUTE AUTO 0.05 K/mm3 (0.00-0.10); IMMATURE GRAN PERCENT AUTO 1 % (0-1); LYMPHOCYTES ABSOLUTE AUTO 2.59 K/mm3 (0.84-5.20); LYMPHOCYTES PERCENT AUTO 25 % (21-46); MONOCYTES ABSOLUTE AUTO 0.52 K/mm3 (0.16-1.47); MONOCYTES PERCENT AUTO 5 % (4-13); Mean Corpuscular HGB 26.1 pg (26.0-34.0); Mean Corpuscular HGB Conc 29.6 g/dL (31.5-36.5); Mean Corpuscular Volume 88 fL (80-100); Mean Platelet Volume 11.4 fL (9.1-12.4); NEUTROPHILS ABSOLUTE AUTO 6.68 K/mm3 (1.96-9.15); NEUTROPHILS PERCENT AUTO 64 % (41-73); Platelet Count 266 K/mm3 (150-400); RDW Coefficient Variation 15.6 % (11.7-14.2); RDW Standard Deviation 50.4 fL (35.1-46.3); Red Blood Cell Count 3.37 M/mm3 (3.80-5.20); White Blood Cell Count 10.38 K/mm3 (4.00-11.30)
[2020-01-22 13:51] LABS: Alanine Aminotransfer (ALT/SGP 14 U/L (12-78); Albumin, Blood 2.9 g/dL (3.4-5.0); Albumin/Globulin Ratio 0.9 (0.8-1.8); Alk Phos 90 U/L (50-136); Anion Gap 6 mmol/L (6-16); Aspartate Aminotrans (AST/SGOT 14 U/L (12-37); Bilirubin, Total 0.2 mg/dL (0.1-1.0); Blood Urea Nitrogen 57 mg/dL (8-24); Bun/Creatinine Ratio 35.6 (12.0-20.0); CO2, Blood 26 mmol/L (21-32); Calcium, Blood 8.8 mg/dL (8.5-10.1); Chloride, Blood 108 mmol/L (98-108); Globulin, Blood 3.3 g/dL (2.2-4.0); Glomerular Filtration Rate 33 (60-); Glucose, Blood 106 mg/dL (70-99); Potassium, Blood 4.6 mmol/L (3.5-5.5); Sodium, Blood 140 mmol/L (136-145); Total Protein, Blood 6.2 g/dL (6.4-8.2); Troponin I <0.015 ng/mL (0.000-0.040)
[2020-01-22] MEDS ORDERED: FURO40 PO (15:32)
[2020-01-22] MEDS ORDERED: AMLODIPINE BESYL5 MG PO (15:33)
[2020-01-22] MEDS ORDERED: PANTOPRAZOLE SO40 M2 PO (15:33)
[2020-01-22] MEDS ORDERED: Klor-Con 1010 MEQ PO ×2 (15:33)
[2020-01-22] MEDS ORDERED: ATOR40TA PO (15:34)
[2020-01-22] MEDS ORDERED: EUTHYROX175 MC1 PO (15:34)
[2020-01-22] MEDS ORDERED: BUDESONIDE0.5 MG/21 INH (15:34)
[2020-01-22] MEDS ORDERED: ZESTRIL40 M2 PO (15:34)
[2020-01-22] MEDS ORDERED: METO50ER PO (15:35)
[2020-01-22] MEDS ORDERED: ALLOPURINOL100 M1 PO (15:35)
[2020-01-22] MEDS ORDERED: GABAPENTIN600 MG PO (15:35)
[2020-01-22] MEDS ORDERED: PLAVIX75 MG PO (15:35)
--- NOTE | 2020-01-22 16:11 | NUR ---
PATIENT ARRIVED TO THE UNIT AT 1550. SHE IS ALERT AND ORIENTED AND COOPERATIVE WITH CARE.
--- NOTE | 2020-01-22 18:34 | NUR ---
PATIENT IS ALERT AND ORIENTED AND COOPERATIVE WITH CARE. 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 SHE IS INVOLVED IN HER CARE. SHE HAS A PACEMAKER. TRACE EDEMA IN HER BLE. SCD'S IN PLACE. SHE STATES SHE IS CAN STAND AND PIVOT BUT IS MORE OFTEN THAN NOT, BEDBOUND. CONSULT WITH DR. HANKINS HAS BEEN PLACED WITH THE ANSWERING SERVICE. WILL CONTINUE TO MONITOR
--- NOTE | 2020-01-22 21:41 | NUR ---
PT. ARRIVED TO UNIT TODAY A NEW ADMIT. PT. HAS CHRONIC INDWELLING MANNING CATHETER. PER DAY NURSE CATHETER WAS NOT CHANGED IN THE ED. PT. REFUSES TO HAVE CATHETER CHANGED AT THIS TIME. STATES IS ANTICIPATING D/C TOMORROW. UA COLLECTED PER ORDER FROM EXSISTING MANNING CATHETER FROM HOME. HOSPITALIST DR. TIWARI MADE AWARE.
[2020-01-22 21:52] LABS: Source, Urine Catheter
[2020-01-22 21:57] LABS: Bilirubin, Urine Neg (Neg); Blood, Urine Neg (Neg); Glucose Qualitative, Urine Neg (Neg); Ketones, Urine Neg (Neg); Leukocyte Esterase, Urine 2+ (Neg); Nitrite, Urine Neg (Neg); Protein, Urine 1+ (Neg); Urobilinogen, Urine NORM (Normal); pH, Urine 6.5 (5.0-8.0)
[2020-01-22 21:58] LABS: Appearance, Urine Clear (Clear); Color, Urine Yellow (P-Yellow)
[2020-01-22 22:03] LABS: Bacteria Many /hpf; Red Blood Cells, Urine 0-2 /hpf (0-2); Squamous Epithelial Cells Not Seen /hpf (Few)
[2020-01-23 01:36] LABS: BASOPHILS ABSOLUTE AUTO 0.05 K/mm3 (0.00-0.23); BASOPHILS PERCENT AUTO 1 % (0-2); EOSINOPHILS ABSOLUTE AUTO 0.44 K/mm3 (0.00-0.68); EOSINOPHILS PERCENT AUTO 5 % (0-6); Hematocrit 30.3 % (33.0-51.0); Hemoglobin 8.9 g/dL (11.5-16.0); IMMATURE GRAN ABSOLUTE AUTO 0.04 K/mm3 (0.00-0.10); IMMATURE GRAN PERCENT AUTO 0 % (0-1); LYMPHOCYTES ABSOLUTE AUTO 2.21 K/mm3 (0.84-5.20); LYMPHOCYTES PERCENT AUTO 24 % (21-46); MONOCYTES ABSOLUTE AUTO 0.48 K/mm3 (0.16-1.47); MONOCYTES PERCENT AUTO 5 % (4-13); Mean Corpuscular HGB 25.8 pg (26.0-34.0); Mean Corpuscular HGB Conc 29.4 g/dL (31.5-36.5); Mean Corpuscular Volume 88 fL (80-100); Mean Platelet Volume 10.8 fL (9.1-12.4); NEUTROPHILS ABSOLUTE AUTO 5.95 K/mm3 (1.96-9.15); NEUTROPHILS PERCENT AUTO 65 % (41-73); Platelet Count 262 K/mm3 (150-400); RDW Coefficient Variation 15.6 % (11.7-14.2); RDW Standard Deviation 49.6 fL (35.1-46.3); Red Blood Cell Count 3.45 M/mm3 (3.80-5.20); White Blood Cell Count 9.17 K/mm3 (4.00-11.30)
[2020-01-23 01:57] LABS: Alanine Aminotransfer (ALT/SGP 15 U/L (12-78); Albumin, Blood 3.1 g/dL (3.4-5.0); Alk Phos 87 U/L (50-136); Anion Gap 5 mmol/L (6-16); Aspartate Aminotrans (AST/SGOT 13 U/L (12-37); Bilirubin, Total 0.3 mg/dL (0.1-1.0); Blood Urea Nitrogen 54 mg/dL (8-24); Bun/Creatinine Ratio 33.8 (12.0-20.0); CO2, Blood 27 mmol/L (21-32); Calcium, Blood 9.2 mg/dL (8.5-10.1); Chloride, Blood 108 mmol/L (98-108); Globulin, Blood 3.2 g/dL (2.2-4.0); Glomerular Filtration Rate 33 (60-); Glucose, Blood 104 mg/dL (70-99); Potassium, Blood 5.2 mmol/L (3.5-5.5); Sodium, Blood 140 mmol/L (136-145); Total Protein, Blood 6.3 g/dL (6.4-8.2); Troponin I <0.015 ng/mL (0.000-0.040)
--- NOTE | 2020-01-23 05:38 | NUR ---
SHIFT SUMMARY- PT. A&O, BED BOUND AT BASELINE. PLEASANT AND COOPERATIVE WITH CARE. PT. ASLEEP DURING THE NIGHT. NO APPARENT DISTRESS NOTED. DENIED ANY CP OR DISCOMFORT THIS SHIFT. PT. RECEIVING NEB TX'S PRN, TOLERATING WELL. CONTINOUS PULSE OXIMETRY IN PLACE PER ORDER. SATS NOTED TO DROP INTO THE LOW 80'S WHEN PT. ASLEEP. PLACED ON 1-2L NC PRN. VSS, CALL LIGHT WITHIN REACH AND SIDE RAILS UP X2. WILL CONT TO MONITOR.
--- NOTE | 2020-01-23 14:49 | NUR ---
DISCHARGE NOTE PT DISCHARGED TO HOME. PT ALERT AND ORIENTED THIS SHIFT. PT'S DAUGHTER IN THE ROOM PRIOR TO DISCHARGE. PT HAS A CHRONIC MANNING CATHETER THAT REMAINED IN PLACE UPON DISCHARGE. PT DENIES PAIN OR CHEST PAIN THIS SHIFT. IV REMOVED PRIOR TO DISCHARGE. PT AND DAUGHTER PROVIDED WITH DISCHARGE AND MEDICATION INSTRUCTIONS. NO QUESTIONS AT THIS TIME. PT TO VEHICLE VIA WHEELCHAIR. PT TRANSFERED FROM WHEELCHAIR TO VEHICLE WITH MINIMAL ASSISTANCE.
== END 2020-01-23 12:30 | disposition home or self-care (01) ==
LOC: ER 12:47 → MEDS 12:48
PROVIDERS: Physician Assistant; ADMIT Family Medicine
DX: R07.9 Chest pain, unspecified (principal); I25.118 Atherosclerotic heart disease of native coronary artery with other forms of angina pectoris; R82.81 Pyuria; J44.9 Chronic obstructive pulmonary disease, unspecified; I10 Essential (primary) hypertension; E11.9 Type 2 diabetes mellitus without complications; E66.01 Morbid (severe) obesity due to excess calories; Z88.5 Allergy status to narcotic agent; Z88.2 Allergy status to sulfonamides; Z88.8 Allergy status to other drugs, medicaments and biological substances; Z91.018 Allergy to other foods; Z79.82 Long term (current) use of aspirin; Z79.84 Long term (current) use of oral hypoglycemic drugs; Z79.02 Long term (current) use of antithrombotics/antiplatelets; Z79.899 Other long term (current) drug therapy; E03.9 Hypothyroidism, unspecified; Z95.5 Presence of coronary angioplasty implant and graft; Z87.891 Personal history of nicotine dependence; Z68.41 Body mass index [BMI] 40.0-44.9, adult
CPT/HCPCS: 36415; 71046; 80053; 81001; 82947; 83880; 84484; 85025; 87086; 93005; 93010; 94640; 94762; 96372; 99285-25; A9270-GY; G0378; J1644

== ENCOUNTER → 2020-04-12 | Outpatient (CLI) | payer MEDICARE, OTHER ==
[~2020-04-12] MED LIST changes: +ALLOPURINOL100 M1 PO; +AMLODIPINE BESYL5 MG PO; +BUDESONIDE0.5 MG/21 INH; +EUTHYROX175 MC1 PO; +GABAPENTIN600 MG PO; +PANTOPRAZOLE SO40 M2 PO; +PLAVIX75 MG PO; +ZESTRIL40 M2 PO
[2020-04-12 15:02] LABS: Bilirubin, Urine Neg (Neg); Blood, Urine 5+ (Neg); Glucose Qualitative, Urine Neg (Neg); Ketones, Urine Neg (Neg); Leukocyte Esterase, Urine 3+ (Neg); Nitrite, Urine Pos (Neg); Protein, Urine 3+ (Neg); Urobilinogen, Urine NORM (Normal)
[2020-04-12 15:29] LABS: Appearance, Urine Cloudy (Clear); Color, Urine Pale Yellow (P-Yellow)
[2020-04-12 15:31] LABS: Bacteria Mod /hpf; Squamous Epithelial Cells Rare /hpf (Few); White Blood Cells, Urine TNTC /hpf (0-5)
== END | disposition home or self-care (01) ==
LOC: LAB SHORT 13:22 → LAB 13:22
PROVIDERS: Nurse Practitioner Family
DX: R30.9 Painful micturition, unspecified (principal)
CPT/HCPCS: 81001; 87077; 87086; 87186

== ENCOUNTER 2020-05-11 22:00 | Inpatient (IN) | payer MEDICARE, OTHER ==
[~2020-05-11] VITALS: Ht 160 cm; Wt 101.5 kg
[~2020-05-11 22:00] MED LIST changes: -Duoneb 2.5-0.5 M3 ML NEB; +IPRAT-ALBUT 0.5-3 ML INH; +METO100ER PO
[2020-05-11] MEDS ORDERED: CIPR500 PO (22:27)
[2020-05-11] MEDS ORDERED: TRAM50 PO (22:27)
[2020-05-11] MEDS ORDERED: CEPH250A PO (22:27)
[2020-05-11 23:33] LABS: BASOPHILS ABSOLUTE AUTO 0.07 K/mm3 (0.00-0.23); BASOPHILS PERCENT AUTO 0 % (0-2); EOSINOPHILS ABSOLUTE AUTO 0.13 K/mm3 (0.00-0.68); EOSINOPHILS PERCENT AUTO 1 % (0-6); Hematocrit 39.8 % (33.0-51.0); Hemoglobin 11.2 g/dL (11.5-16.0); IMMATURE GRAN ABSOLUTE AUTO 0.13 K/mm3 (0.00-0.10); IMMATURE GRAN PERCENT AUTO 1 % (0-1); LYMPHOCYTES ABSOLUTE AUTO 1.08 K/mm3 (0.84-5.20); LYMPHOCYTES PERCENT AUTO 4 % (21-46); MONOCYTES ABSOLUTE AUTO 0.77 K/mm3 (0.16-1.47); MONOCYTES PERCENT AUTO 3 % (4-13); Mean Corpuscular HGB 24.3 pg (26.0-34.0); Mean Corpuscular HGB Conc 28.1 g/dL (31.5-36.5); Mean Corpuscular Volume 86 fL (80-100); Mean Platelet Volume 10.7 fL (9.1-12.4); NEUTROPHILS ABSOLUTE AUTO 22.12 K/mm3 (1.96-9.15); NEUTROPHILS PERCENT AUTO 91 % (41-73); Platelet Count 291 K/mm3 (150-400); RDW Coefficient Variation 16.1 % (11.7-14.2); RDW Standard Deviation 50.5 fL (35.1-46.3); Red Blood Cell Count 4.61 M/mm3 (3.80-5.20)
[2020-05-11 23:51] LABS: Prothrombin Time Results 10.7 Sec (9.7-11.5)
[2020-05-11 23:53] LABS: Alanine Aminotransfer (ALT/SGP 16 U/L (12-78); Albumin, Blood 3.1 g/dL (3.4-5.0); Albumin/Globulin Ratio 0.9 (0.8-1.8); Alk Phos 151 U/L (50-136); Anion Gap 5 mmol/L (6-16); Aspartate Aminotrans (AST/SGOT 15 U/L (12-37); Bilirubin, Total 0.4 mg/dL (0.1-1.0); Blood Urea Nitrogen 45 mg/dL (8-24); CO2, Blood 29 mmol/L (21-32); Calcium, Blood 9.3 mg/dL (8.5-10.1); Chloride, Blood 109 mmol/L (98-108); Globulin, Blood 3.4 g/dL (2.2-4.0); Glomerular Filtration Rate 29 (60-); Glucose, Blood 133 mg/dL (70-99); Potassium, Blood 4.6 mmol/L (3.5-5.5); Sodium, Blood 143 mmol/L (136-145); Total Protein, Blood 6.5 g/dL (6.4-8.2); Troponin I <0.015 ng/mL (0.000-0.040)
[2020-05-12 06:53] LABS: BASOPHILS PERCENT AUTO 0 % (0-2); EOSINOPHILS PERCENT AUTO 0 % (0-6); Hematocrit 35.4 % (33.0-51.0); Hemoglobin 9.9 g/dL (11.5-16.0); IMMATURE GRAN ABSOLUTE AUTO 0.23 K/mm3 (0.00-0.10); IMMATURE GRAN PERCENT AUTO 1 % (0-1); LYMPHOCYTES ABSOLUTE AUTO 1.12 K/mm3 (0.84-5.20); LYMPHOCYTES PERCENT AUTO 4 % (21-46); MONOCYTES ABSOLUTE AUTO 1.05 K/mm3 (0.16-1.47); MONOCYTES PERCENT AUTO 3 % (4-13); Mean Corpuscular HGB 24.4 pg (26.0-34.0); Mean Corpuscular Volume 87 fL (80-100); Mean Platelet Volume 11.3 fL (9.1-12.4); NEUTROPHILS ABSOLUTE AUTO 29.48 K/mm3 (1.96-9.15); NEUTROPHILS PERCENT AUTO 92 % (41-73); Platelet Count 290 K/mm3 (150-400); RDW Coefficient Variation 16.3 % (11.7-14.2); RDW Standard Deviation 52.2 fL (35.1-46.3); Red Blood Cell Count 4.06 M/mm3 (3.80-5.20); White Blood Cell Count 31.98 K/mm3 (4.00-11.30)
[2020-05-12 07:08] LABS: Albumin, Blood 2.7 g/dL (3.4-5.0); Anion Gap 6 mmol/L (6-16); Blood Urea Nitrogen 50 mg/dL (8-24); Bun/Creatinine Ratio 23.8 (12.0-20.0); CO2, Blood 28 mmol/L (21-32); Calcium, Blood 8.4 mg/dL (8.5-10.1); Chloride, Blood 106 mmol/L (98-108); Glomerular Filtration Rate 24 (60-); Glucose, Blood 132 mg/dL (70-99); Phosphorus, Blood 5.8 mg/dL (2.5-4.9); Sodium, Blood 140 mmol/L (136-145)
--- NOTE | 2020-05-12 07:22 | NUR ---
SHIFT SUMMARY PT ARRIVED FROM ER VIA STRETCHER; SLID OVER TO BED W/ SLIDER SHEET; A&O X 3-4; VSS; NSR NOTED ON TELE; O2 SATS >93 ON 2L NC; ROCEPHIN & FLAGGYL ADMINISTERED PER EMAR; PT STATES SHE PREVIOUSLY RECIEVED A FLU SHOT; CHRONIC MANNING IN PLACE UPON ARRIVAL; ANSWERING SERVICE NOTIFIED OF GI CONSULT; ASSISTED PT W/ CALL TO FAMILY; PT EDUCATED TO FALL PRECAUTIONS AND ORIENTED TO ROOM/CALL LIGHT; CALL LIGHT IN REACH; BED IN LOWEST POSITION; REPORT GIVEN TO DAY SHIFT RN.
--- NOTE | 2020-05-12 10:36 | NUR ---
CARE ASSUMED REPORT RECEIVED, CARE ASSUMED AT 0700 FROM COSTA HOANG. PT ASLEEP, BUT AROUSES EASILY FOR ASSESSMENT. PT ORIENTED. FALLS ASLEEP QUICKLY BETWEEN CONVERSATIONS. VITALS STABLE. SEE FULL SHIFT ASSESSMENT. PT ABLE TO TAKE PO MEDICATIONS WITHOUT DIFFICULTY. ATE SMALL AMOUNT OF BREAKFAST. PT'S DAUGHTER CALLED FOR UPDATE.
--- NOTE | 2020-05-12 11:50 | NUR ---
GI DOCTOR TO BEDSIDE. PT HAS HAD NO STOOL SINCE ADMISSION, MD WILL PLAN TO REASSESS TOMORROW.
[2020-05-12 12:53] LABS: Hematocrit 33.7 % (33.0-51.0); Hemoglobin 9.3 g/dL (11.5-16.0)
--- NOTE | 2020-05-12 14:03 | NUR ---
DR. ZAIDI / DR. RUDY ZAIDI TO BEDSIDE FOR ASSESSMENT. DISCUSSED DROWSINESS. DISCUSSED WITH DR. ZAIDI THAT PT'S INDWELLING CATHETER WAS PLACED IN DR. GRANT'S OFFICE FOR PROLAPSED BLADDER AND WE ARE NOT WANTING TO REMOVE IT AND SEND URINALYSIS IN CASE IT IS MAY BE A DIFFICULT REINSERTION. DR. ZAIDI CONSULTED DR. GRANT AND SPOKE TO HIM VIA PHONE. PER DR. ZAIDI AND DR. GRANT, LEAVE MANNING IN PLACE AND NO URINALYSIS AT THIS TIME. PT'S DAUGHTER, LESLY, TO BEDSIDE AND DR. GRANT REQUESTING TO SPEAK WITH FAMILY. LESLY, PT'S DAUGHTER, TALKED TO DR. GRANT ON PHONE IN ROOM. SEE PROVIDER NOTES AND ORDERS.
--- NOTE | 2020-05-12 17:54 | NUR ---
RT UNABLE TO OBTAIN ABG; NOTIFIED DR ZAIDI; NEW ORDERS FOR VBG.
[2020-05-12 19:04] LABS: Base Excess Venous -1.2 mmol/L; Bicarbonate Venous 22.8 mmol/L (24.0-30.0); PCO2 Venous 53.1 mmHg (38-42); PO2 Venous 36.5 mmHg (38-42); pH Blood Venous 7.29 (7.34-7.37)
--- NOTE | 2020-05-12 19:10 | NUR ---
REPORT TO COSTA HOANG TO ASSUME CARE AT THIS TIME
[2020-05-12 19:13] LABS: Hematocrit 29.8 % (33.0-51.0); Hemoglobin 8.5 g/dL (11.5-16.0)
--- NOTE | 2020-05-12 20:19 | NUR ---
SUMMARY THIS AFTERNOON, PT CONTINUES TO BE SLEEPY. SHE IS ORIENTED, BUT MORE DIFFICULT TO AROUSE AND KEEP AWAKE. VITALS CONTINUE TO BE STABLE. WHEN CHANGING PT, NOTED TO HAVE ARMIDA RED BLOOD COMING FROM RECTUM. PT'S ABDOMEN ALSO EXTREMELY TENDER. NOTIFIED DR. ZAIDI OF UPDATES. NEW ORDER FOR ABG, TRANSFUSE 1 UNIT PRBC, START BIPAP IF PT IS ACIDIC ON ABG. PT'S FAMILY UPDATED. UNABLE TO OBTAIN ABG PER RESPIRATORY CARE, VBG DRAWN PER LAB. PT ALSO REQUIRING SECOND IV FOR BLOOD TRANSFUSION. AFTER TWO RN ATTEMPT, SECOND IV PLACED WITH ULTRASOUND ASSISTANCE. PT'S DAUGHTER, LESLY TO BEDSIDE AND UPDATED ON PLAN OF CARE. NORMAL SALINE AT 75 ML/HR STARTED PER DR. GRANT'S ORDER.
[2020-05-13 04:53] LABS: BASOPHILS ABSOLUTE AUTO 0.06 K/mm3 (0.00-0.23); BASOPHILS PERCENT AUTO 0 % (0-2); EOSINOPHILS ABSOLUTE AUTO 0.06 K/mm3 (0.00-0.68); EOSINOPHILS PERCENT AUTO 0 % (0-6); Hematocrit 31.9 % (33.0-51.0); Hemoglobin 9.2 g/dL (11.5-16.0); IMMATURE GRAN ABSOLUTE AUTO 0.17 K/mm3 (0.00-0.10); IMMATURE GRAN PERCENT AUTO 1 % (0-1); LYMPHOCYTES ABSOLUTE AUTO 2.45 K/mm3 (0.84-5.20); LYMPHOCYTES PERCENT AUTO 11 % (21-46); MONOCYTES ABSOLUTE AUTO 1.09 K/mm3 (0.16-1.47); MONOCYTES PERCENT AUTO 5 % (4-13); Mean Corpuscular HGB 25.3 pg (26.0-34.0); Mean Corpuscular HGB Conc 28.8 g/dL (31.5-36.5); Mean Corpuscular Volume 88 fL (80-100); NEUTROPHILS ABSOLUTE AUTO 18.94 K/mm3 (1.96-9.15); NEUTROPHILS PERCENT AUTO 83 % (41-73); Platelet Count 198 K/mm3 (150-400); RDW Coefficient Variation 15.8 % (11.7-14.2); RDW Standard Deviation 50.7 fL (35.1-46.3); Red Blood Cell Count 3.64 M/mm3 (3.80-5.20); White Blood Cell Count 22.77 K/mm3 (4.00-11.30)
[2020-05-13 05:15] LABS: Alanine Aminotransfer (ALT/SGP 14 U/L (12-78); Albumin, Blood 2.4 g/dL (3.4-5.0); Albumin/Globulin Ratio 0.8 (0.8-1.8); Alk Phos 91 U/L (50-136); Anion Gap 8 mmol/L (6-16); Aspartate Aminotrans (AST/SGOT 28 U/L (12-37); Bilirubin, Total 0.5 mg/dL (0.1-1.0); Blood Urea Nitrogen 59 mg/dL (8-24); Bun/Creatinine Ratio 16.6 (12.0-20.0); CO2, Blood 24 mmol/L (21-32); Calcium, Blood 8.2 mg/dL (8.5-10.1); Chloride, Blood 107 mmol/L (98-108); Creatinine, Blood 3.56 mg/dL (0.40-1.00); Glomerular Filtration Rate 13 (60-); Glucose, Blood 81 mg/dL (70-99); Magnesium, Blood 2.1 mg/dL (1.6-2.4); Phosphorus, Blood 7.3 mg/dL (2.5-4.9); Potassium, Blood 4.6 mmol/L (3.5-5.5); Sodium, Blood 139 mmol/L (136-145); Total Protein, Blood 5.4 g/dL (6.4-8.2)
--- NOTE | 2020-05-13 07:40 | NUR ---
SHIFT SUMMARY PT A&O X 3-4; LETHARGIC T/O SHIFT; UNABLE TO STAY ALERT ENOUGH TO TAKE 2100 PO MEDS; 1 UNIT PRBC GIVEN; VSS; O2 SATS >93 ON 2L NC; RT TO ASSESS PT; TO SEE PT; MANNING PATENT & DRAINING MERLY URINE W/ MINIMAL OUTPUT; PT C/O AMDOMEN PAIN, SPECIFICALLY LLQ; TRAMADOL ADMINISTER THIS AM; CALL LIGHT IN REACH; BED IN LOWEST POSITION; REPORT GIVEN TO DAY SHIFT RN.
[2020-05-13 13:49] LABS: Influenza A, PCR Negative (NEGATIVE); Influenza B, PCR Negative (NEGATIVE); Resp Syncytial Virus, PCR Negative (NEGATIVE); SARS-Cov-2 (COVID-19) PCR, MMC Negative (NEGATIVE)
--- NOTE | 2020-05-13 15:18 | NUR ---
Spiritual care visit attempted. Upon receiving an admit referral for spiritual care, I visit patient. Patient is resting and awakens slightly at the sound of her name. I ask patient if she would like a visit from a Rehabilitation Program Coordinator and patient shakes her head "No." I then ask patient if she is in the "sleep-zone" and she nods her head affirmingly. I let patient get back to resting. I will continue to remain available to patient and family.
--- NOTE | 2020-05-13 15:33 | NUR ---
TO RE[facility]ALD VIA [facility]A, SLEEPY MOANS WITH MOVMENT. CONFUSED.
--- NOTE | 2020-05-13 15:40 | NUR ---
PT TAKEN TO DAY SURGERY FOR SIGMOIDOSCOPY. PT IS MORE ALERT THIS AFTERNOON, HOWEVER REMAINS CONFUSED AND NOT VERY INTERACTIVE WITH STAFF. PT HAD SMALL AMOUNT OF ARMIDA RED BLOOD PER RECTUM TODAY PER TIRE INSTALLER.
--- NOTE | 2020-05-13 16:29 | NUR ---
dR ONEAL AND DR CHAUDHARY OBTAINED PHONE CONSENT FOR PROCEDURE AND SEDATION BY DAUGHTER ROSALIND THIS RN WAS Bailee YOON
--- NOTE | 2020-05-13 17:07 | NUR ---
05/13/20 1707 GELACIO GARRETT History, Chart, Medications and Allergies reviewed before start of procedure. 3-LEAD EKG REVIEWED WITH PHYSICIAN PRIOR TO START OF PROCEDURE. O2 VIA N/C INTACT THROUGHOUT SEDATION/PROCEDURE. MONITOR INTACT WITH CONTINUOUS PULSE OXIMETRY AND INTERMITTENT BP. MAC WITH DR. PENN.
--- NOTE | 2020-05-13 18:01 | NUR ---
SHIFT SUMMARY PT RETURNED FROM DAY SURGERY AT 1730, AWAKENS TO NAME CALLING, FALLS ASLEEP EASILY, NOT FOLLOWING DIRECTIONS WITH STAFF. PT IS BACK TO MOANING AND NOT VERBALIZING. 2L OF O2 APPLIED FOR POST PROCEDURE TO MAINTAIN SPO2 > 92%. TELEMETRY HAS SHOWN PT TO BE IN SINUS RHYTHM. VITALS HAVE BEEN STABLE. PT HAD SMALL AMOUNT OF ARMIDA RED BLOOD PER RECTUM TODAY, NO BM NOTED. PT'S MENTATION HAD IMPROVED SOME THIS AFTERNOON, WERE PT WAS MORE ALERT, HOWEVER POST SEDATION FROM PROCEDURE, PT IS SLEEPING AGAIN.
[2020-05-14 04:27] LABS: Hematocrit 31.9 % (33.0-51.0)
[2020-05-14 04:53] LABS: Albumin, Blood 2.4 g/dL (3.4-5.0); Anion Gap 10 mmol/L (6-16); Blood Urea Nitrogen 64 mg/dL (8-24); Bun/Creatinine Ratio 15.8 (12.0-20.0); CO2, Blood 21 mmol/L (21-32); Calcium, Blood 8.3 mg/dL (8.5-10.1); Chloride, Blood 109 mmol/L (98-108); Creatinine, Blood 4.05 mg/dL (0.40-1.00); Glomerular Filtration Rate 11 (60-); Glucose, Blood 84 mg/dL (70-99); Magnesium, Blood 2.2 mg/dL (1.6-2.4); Phosphorus, Blood 7.8 mg/dL (2.5-4.9); Potassium, Blood 4.6 mmol/L (3.5-5.5); Sodium, Blood 140 mmol/L (136-145)
--- NOTE | 2020-05-14 05:28 | NUR ---
END OF SHIFT SUMMARY PT CONTINUES TO BE LETHARGIC. DOES OPEN EYES TO SOUND AND APEARS TO HELP ROLL. FALLS ASLEEP QUICKLY POST OPENING EYES. REMAINS SR 1DEGREE HB. REMAINS ON 2LNC. HAD AN EXTREMELY SMALL BROWN/RED MUCOUSY BM THIS SHIFT. MANNING REMAINS PATENT AND DRAINING DARK MERLY URINE. OTHERWISE, VSS. PT BEING TURNED BY STAFF. BED ALARM IN PLACE. WILL CONTINUE TO MONITOR UNTIL SHIFT CHANGE.
--- NOTE | 2020-05-14 07:26 | NUR ---
ASSUMED PATIENT CARE. PATIENT RESTING COMFORTABLY IN BED, NO SIGNS OF ACUTE DISTRESS, WCTM.
--- NOTE | 2020-05-14 17:48 | NUR ---
NO ACUTE EVENTS THIS SHIFT. PATIENT LETHARGIC AND CONFUSED THIS SHIFT, UNABLE TO ANSWER YES OR NO QUESTIONS, UNABLE TO STATE NAME. PATIENT WILL RESPOND TO A GREETING WITH "HELLO" AT TIMES, BUT THEN CLOSES EYES PROMPTLY. PATIENT WAS RESTLESS THIS SHIFT, MOANING, AND MOVING LEGS UNCOMFORTABLY. ORDERS FOR IV MORHPINE GIVEN, RELIEF OF SIGNS OF DISCOMFORT NOTED AFTER ADMINISTRATION. IV FLUIDS CONTINUED THIS SHIFT. PATIENT NOT SAFE TO TAKE ORAL MEDICATIONS AT THIS TIME, NOTIFIED.
--- NOTE | 2020-05-15 04:27 | NUR ---
GROUND SUPPORT EQUIPMENT FITTER SUMMARY PT HAS REMAINED OBTUNDED ALL NIGHT BUT WILL ANSWER W YES OR NO IF ASKED A QUESTION. PT DENIED ANY PAIN AND DID NOT SHOW ANY SIGNS OF DISTRESS THROUGHOUT THE NIGHT. PT PLACED ON 2L NC DUE TO TONY AND NON-COMPLIANCE W CPAP. SPOKE W PT'S DAUGHTER AND INFORMED HER OF PT'S CURRENT STATE AND DAUGHTER WAS PLEASED TO HEAR THAT THE PT WAS ATLEAST RESPONDING WHEN TALKED TO SHE SAID THIS WAS AN IMPROVEMENT. NS RUNNING AT 50ML/HR AND PT RESTING COMFORTABLY W CALL LIGHT WITHIN REACH.
[2020-05-15 05:41] LABS: BASOPHILS ABSOLUTE AUTO 0.03 K/mm3 (0.00-0.23); BASOPHILS PERCENT AUTO 0 % (0-2); EOSINOPHILS ABSOLUTE AUTO 0.03 K/mm3 (0.00-0.68); EOSINOPHILS PERCENT AUTO 0 % (0-6); Hematocrit 33.9 % (33.0-51.0); Hemoglobin 9.7 g/dL (11.5-16.0); IMMATURE GRAN ABSOLUTE AUTO 0.29 K/mm3 (0.00-0.10); IMMATURE GRAN PERCENT AUTO 2 % (0-1); LYMPHOCYTES ABSOLUTE AUTO 0.84 K/mm3 (0.84-5.20); LYMPHOCYTES PERCENT AUTO 5 % (21-46); MONOCYTES ABSOLUTE AUTO 0.79 K/mm3 (0.16-1.47); MONOCYTES PERCENT AUTO 5 % (4-13); Mean Corpuscular HGB Conc 28.6 g/dL (31.5-36.5); Mean Corpuscular Volume 87 fL (80-100); Mean Platelet Volume 11.4 fL (9.1-12.4); NEUTROPHILS ABSOLUTE AUTO 13.97 K/mm3 (1.96-9.15); NEUTROPHILS PERCENT AUTO 88 % (41-73); Platelet Count 238 K/mm3 (150-400); RDW Coefficient Variation 16.1 % (11.7-14.2); RDW Standard Deviation 51.8 fL (35.1-46.3); Red Blood Cell Count 3.88 M/mm3 (3.80-5.20); White Blood Cell Count 15.95 K/mm3 (4.00-11.30)
[2020-05-15 06:07] LABS: Albumin, Blood 2.5 g/dL (3.4-5.0); Anion Gap 11 mmol/L (6-16); Blood Urea Nitrogen 62 mg/dL (8-24); Bun/Creatinine Ratio 19.7 (12.0-20.0); CO2, Blood 19 mmol/L (21-32); Calcium, Blood 8.7 mg/dL (8.5-10.1); Chloride, Blood 115 mmol/L (98-108); Creatinine, Blood 3.14 mg/dL (0.40-1.00); Glomerular Filtration Rate 15 (60-); Glucose, Blood 85 mg/dL (70-99); Magnesium, Blood 2.3 mg/dL (1.6-2.4); Phosphorus, Blood 5.5 mg/dL (2.5-4.9); Potassium, Blood 4.2 mmol/L (3.5-5.5); Sodium, Blood 145 mmol/L (136-145)
--- NOTE | 2020-05-15 10:04 | NUR ---
PT TO IMAGING FOR HEAD CT.
--- NOTE | 2020-05-15 18:33 | NUR ---
SHIFT SUMMARY PT IS A&OX3 AND MORE AROUSED TODAY. PT WAS ABLE TO TAKE HER PO MEDS CRUSHED IN APPLESAUCE, INCLUDING HER BP MEDS WHICH SHE WASNT RECIEVING THE LAST COUPLE DAYS. WHOLE MEDS SHE WOULD SWALLOW THE APPLESAUCE AND CHEW ON THE PILLS. PT WAS ALSO ABLE TO INTAKE MORE FLUIDS T/O THE DAY. EDGARDO ORDERED EEG, A CT OF THE HEAD W/O CONTRAST, AND A GENERAL SURGERY CONSULT. DR PAULINO THEN ORDERED A CT OF THE ABD WITH ORAL CONTRAST. PT HAS NO BEEN ON O2 T/O DAY AND HAS BEEN SATING ABOVE 94%. PT RECENTLY REQUESTED A BREATHING TX AFTER BEING CHANGED AND REPOSITIONED. PT DID REPORT SOME PAIN TODAY AND WAS PROVIDED MEDICATION PER EMAR. DAUGHTER AT BEDSIDE.
--- NOTE | 2020-05-16 04:25 | NUR ---
CHEST PAINTING AND SEALING SUPERVISOR SUMMARY PT IS SIGNIFICANTLY BETTER TONIGHT COMPARED TO THE PREVIOUS NIGHT. THE PT IS ALERT AND ABLE TO CARRY ON A CONVERSATION WHERE SHE WAS ALMOST NONVERBAL THE PREVIOUS NIGHT. THE PT IS ABLE TO TAKE HER MEDS CRUSHED IN APPLESAUCE AND HAS BEEN DRINKING WATER W NO S/S OF ASPIRATING. PT DENIES ANY PAIN OR NAUSEA BUT HAS HAD MULTIPLE INCONTINENT LOOSE STOOLS. PT HAS REMAINED ON 2L NC W O2 SATS >90. IV ACCESS WAS LOST EARLY IN THE SHIFT AND A POWERGLIDE WAS PLACED IN HER ISAÍAS SO FLUIDS AND ANTIBIOTICS COULD BE RESUMED. PT IS RESTING IN BED W CALL LIGHT WITHIN REACH, WCTM.
[2020-05-16 08:51] LABS: Albumin, Blood 2.3 g/dL (3.4-5.0); Anion Gap 7 mmol/L (6-16); Blood Urea Nitrogen 57 mg/dL (8-24); Bun/Creatinine Ratio 23.9 (12.0-20.0); CO2, Blood 23 mmol/L (21-32); Calcium, Blood 8.1 mg/dL (8.5-10.1); Chloride, Blood 113 mmol/L (98-108); Creatinine, Blood 2.38 mg/dL (0.40-1.00); Glomerular Filtration Rate 21 (60-); Glucose, Blood 87 mg/dL (70-99); Phosphorus, Blood 4.1 mg/dL (2.5-4.9); Potassium, Blood 3.9 mmol/L (3.5-5.5); Sodium, Blood 143 mmol/L (136-145)
--- NOTE | 2020-05-16 14:57 | NUR ---
Clinical Visit: Pt appears to be resting in bed. Two daughters are present at bedside. Reviewed pt's current health challenges. They have one more sibling that needs to be consulted before making a change in the pt's care to comfort rather than curative treatments. They express a wish to have her as comfortable as possible. They do believe that they will make the decision to place her on comfort measures and hospice services, but need time to speak with family. No other concerns for their mother at this time. They express gratitude to staff for her care.
--- NOTE | 2020-05-16 19:20 | NUR ---
SHIFT SUMMARY MOSHE DENIED PAIN THIS SHIFT EXCEPT WHEN CLEANING HER UP AFTER A BM. HER BACKSIDE AND MAGEN AREA SKIN IS VERY SORE. RED AREAS CLEANED, NYSTATIN APPLIED AND MEPILEX PUT ON COCCYX SORE. WEANED TO ROOM AIR THIS SHIFT. DYSPNEIC ON EXERTION, BUT SATS ARE DOING WELL. PT SAW PATIENT. MIVF STOPPED. PT ADVANCED TO FULL LIQUIDS. DAUGHTERS AT BEDSIDE FOR MOST OF THE DAY. TOOK PILLS ONE AT A TIEM IN APPLESAUCE. TWO BM INCONTINENT. REPORT GIVEN TO NIGHT NURSE
--- NOTE | 2020-05-17 04:59 | NUR ---
SHIFT SUMMARY ADMITTED FOR COLITIS. DNI CODE (CPR IS OK). PLAN IS FOR FAMILY TO DECIDE ON A PLAN OF CARE MOVING FORWARD. SNF PLACEMENT VS HOSPICE? NO SURGICAL INTERVENTION PLANNED. PRESSURE ULCER ON COCCYX. RUDY IS CONSULT. CHRONIC MANNING IN PLACE, PROLAPSED BLADDER. 2 VERY LOOSE BM'S YESTERDAY, BOWEL CARE HELD. CONTACT PRECAUTIONS FOR CRE IN URINE.
[2020-05-17 05:04] LABS: Hematocrit 30.7 % (33.0-51.0); Hemoglobin 8.7 g/dL (11.5-16.0)
[2020-05-17 05:31] LABS: Albumin, Blood 2.1 g/dL (3.4-5.0); Anion Gap 6 mmol/L (6-16); Blood Urea Nitrogen 59 mg/dL (8-24); Bun/Creatinine Ratio 23.5 (12.0-20.0); CO2, Blood 24 mmol/L (21-32); Chloride, Blood 112 mmol/L (98-108); Creatinine, Blood 2.51 mg/dL (0.40-1.00); Glomerular Filtration Rate 20 (60-); Glucose, Blood 78 mg/dL (70-99); Magnesium, Blood 2.1 mg/dL (1.6-2.4); Phosphorus, Blood 4.8 mg/dL (2.5-4.9); Potassium, Blood 3.9 mmol/L (3.5-5.5); Sodium, Blood 142 mmol/L (136-145)
--- NOTE | 2020-05-17 14:24 | NUR ---
Clinical Visit: Pt is alert, oriented. She is appropriate for making decisions. Discussion regarding goals of care: Pt's ultimate goal is to be home for ving. She has family planned to see her in her home for the holiday. This is the most important thing to her; she states, "It may be the last holidays I have." Reviewed options. Pt does not appear to be a candidate for SNF - and she states at this time that she would chose to be home and would not choose SNF. Lightly discussed hospice option: She is not interested. She may choose this for herself in the future, but she does not want this now. Pt's daughter/caregiver is at the bedside. She is encouraged that her mother is looking better every day. She is talking about food and how they both could modify their diets for better health. Daughter and mother seem to have a good relationship and they are laughing and smiling at each other - laughing at jokes each of them is making. Pt is concerned about her shortness of breath. She states she ususally doesn't get this short of breath and she is wondering about her lasix. She takes 40mg daily. Dr. Herrera has ordered bumex for now. She is able to speak up to 2-4 words before she has to stop to catch her breath to resume speaking. Reviewed with BLANCA Valdivia. No other palliative concerns at this time. Will remain available.
--- NOTE | 2020-05-17 16:51 | NUR ---
INFORMED DR REYNOSO OF PT'S LOW INTAKE AND ONLY 220ML URINE OUTPUT THUS FAR THIS SHIFT, WCTM
--- NOTE | 2020-05-17 19:14 | NUR ---
RESTING QUIETLY IN BED. CALL LIGHT IN REACH
--- NOTE | 2020-05-17 19:27 | NUR ---
SHIFT SUMMARY MOSHE COMPLAINED OF MILD ABD PAIN, GOT TYLENOL TODAY. HAD ONE VERY LARGE INCONTINENT BM. CALAMZIME APPLIED TO COCCYX ULCERATION AND TURNED REGULARLY. PILLS ONE AT A TIME IN APPLESAUCE AND DID WELL. DAUGHTER VISITED. ON ROOM AIR FOR DAY SHIFT. ADVANCED TO LOW FIBER DIET AND DID WELL. WHEEZY LUNGS, DR REYNOSO STARTED IV SOLUMEDROL AND DR GRANT STARTED BUMEX. MANNING DRAINING WELL. REPORT GIVEN TO NIGHT NURSE
--- NOTE | 2020-05-17 20:31 | NUR ---
AWAKE FOR HS MEDS, CHEERFUL AFFECT. TALKATIVE. DENIED PAIN. MANNING DRAINING YELLOW-MERLY. CALL LIGHT IN REACH
--- NOTE | 2020-05-18 03:05 | NUR ---
SHIFT SUMMARY HAS BEEN RESTING QUIETLY WITH FEW INTERRUPTIONS. HOB ELEVATED FOR RESP COMFORT. BREATH SOUNDS REMAIN SLIGHTLY CONGESTED. CALL LIGHT IN REACH. ISOLATION PRECAUTIONS MAINTAINED
[2020-05-18] MEDS ORDERED: ISOSORBIDE MONONITRA PO (04:28)
[2020-05-18 06:06] LABS: BASOPHILS ABSOLUTE AUTO 0.04 K/mm3 (0.00-0.23); BASOPHILS PERCENT AUTO 0 % (0-2); EOSINOPHILS ABSOLUTE AUTO 0.01 K/mm3 (0.00-0.68); EOSINOPHILS PERCENT AUTO 0 % (0-6); Hematocrit 34.7 % (33.0-51.0); Hemoglobin 10.2 g/dL (11.5-16.0); IMMATURE GRAN ABSOLUTE AUTO 0.47 K/mm3 (0.00-0.10); IMMATURE GRAN PERCENT AUTO 4 % (0-1); LYMPHOCYTES ABSOLUTE AUTO 0.61 K/mm3 (0.84-5.20); LYMPHOCYTES PERCENT AUTO 6 % (21-46); MONOCYTES PERCENT AUTO 1 % (4-13); Mean Corpuscular HGB 25.2 pg (26.0-34.0); Mean Corpuscular HGB Conc 29.4 g/dL (31.5-36.5); Mean Corpuscular Volume 86 fL (80-100); Mean Platelet Volume 11.8 fL (9.1-12.4); NEUTROPHILS ABSOLUTE AUTO 9.72 K/mm3 (1.96-9.15); NEUTROPHILS PERCENT AUTO 89 % (41-73); Platelet Count 315 K/mm3 (150-400); RDW Coefficient Variation 16.4 % (11.7-14.2); RDW Standard Deviation 51.2 fL (35.1-46.3); Red Blood Cell Count 4.05 M/mm3 (3.80-5.20); White Blood Cell Count 10.95 K/mm3 (4.00-11.30)
[2020-05-18 10:27] LABS: Magnesium, Blood 2.2 mg/dL (1.6-2.4); Prealbumin, Blood 11.9 mg/dL (20.0-40.0)
[2020-05-18 10:28] LABS: Albumin, Blood 2.4 g/dL (3.4-5.0); Anion Gap 6 mmol/L (6-16); Blood Urea Nitrogen 63 mg/dL (8-24); Bun/Creatinine Ratio 28.4 (12.0-20.0); CO2, Blood 25 mmol/L (21-32); Calcium, Blood 8.7 mg/dL (8.5-10.1); Chloride, Blood 110 mmol/L (98-108); Creatinine, Blood 2.22 mg/dL (0.40-1.00); Glomerular Filtration Rate 23 (60-); Glucose, Blood 140 mg/dL (70-99); Phosphorus, Blood 4.2 mg/dL (2.5-4.9); Potassium, Blood 4.8 mmol/L (3.5-5.5); Sodium, Blood 141 mmol/L (136-145)
--- NOTE | 2020-05-18 17:41 | NUR ---
SUMMARY PT SITTING UP IN BED EATING DINNER AND WATCHING TV, PT HAS BEEN PLEASANT AND COOPERATIVE WITH CARE, USES HER CALL LIGHT APPROPRIATELY, PT STILL WHEEZY AND DYSPNEIC WITH ANY ACTIVITY, PT REPORTS FEELING BETTER, BUT NOT WELL ENOUGH TO RETURN HOME, PT WORKED WITH PT/OT AND IS AGREEABLE TO GO TO SNF IF NEEDED, VSS, WILL CONT TO MONITOR
--- NOTE | 2020-05-18 21:14 | NUR ---
WAKE WATCHING TV. DISCUSSED COVID RESTRICTIONS WITH NURSE AND FELT THE MASK MANDATE WAS NOT NECESSARY. NURSE FOCUSED ON THE SAFETY ISSUES, PT STILL FELT IT WAS NOT IMPORTANT, "THATS JUST HOW I FEEL". SHE SAID. CALL LIGHT IN REACH. WAS SOB, O2 PLACED ON PER NC AT 2L/MIN. WILL MONIOR.
--- NOTE | 2020-05-19 05:59 | NUR ---
SHIFT SUMMARY HAS BEEN RESTING QUIETLY WITH FEW INTERRUPTIONS. HOB ELEVATED FOR COMFORT AND TO ASSIST WITH BREATHING SHE SEEMS TO GET SOB IF HOB TOO LOW. O2 WAS USED EARLIER FOR SOB, BUT PT REMOVED IT AND IS RESTING QUIETLY ON ROOM AIR. DAUGHTER ZENY CALLED EARLIER RE PT CONDITION. CALL LIGHT IN REACH
[2020-05-19 06:04] LABS: Hematocrit 35.2 % (33.0-51.0); Hemoglobin 10.4 g/dL (11.5-16.0)
[2020-05-19 06:22] LABS: Albumin, Blood 2.6 g/dL (3.4-5.0); Anion Gap 6 mmol/L (6-16); Blood Urea Nitrogen 60 mg/dL (8-24); Bun/Creatinine Ratio 32.4 (12.0-20.0); CO2, Blood 25 mmol/L (21-32); Chloride, Blood 113 mmol/L (98-108); Creatinine, Blood 1.85 mg/dL (0.40-1.00); Glomerular Filtration Rate 28 (60-); Glucose, Blood 144 mg/dL (70-99); Magnesium, Blood 2.2 mg/dL (1.6-2.4); Phosphorus, Blood 3.4 mg/dL (2.5-4.9); Potassium, Blood 4.6 mmol/L (3.5-5.5); Sodium, Blood 144 mmol/L (136-145)
--- NOTE | 2020-05-19 17:27 | NUR ---
SUMMARY PT RESTING QUIETLY IN BED, WAKES EASILY, HAS BEEN PLEASANT AND COOPERATIVE WITH CARE, USES HER CALL LIGHT APPROPRIATELY, FEEDS HERSELF AND TAKES HER PILLS WHOLE, PLAN TO GO TO SNF OR HOME WITH HOME HEALTH SOON, VSS, WILL CONT TO MONITOR
--- NOTE | 2020-05-19 21:50 | NUR ---
AWAKE AT INTERVALS- FOR MEDICATIONS. TOLERATING MEDS WELL WITH APPLESAUCE. HOB REMAINS ELEVATED AROUND 30-40 DEGREES FOR RESPIRATORY ASSISTANCE. NO NOTED SOB AT THIS TIME, ROOM AIR. AFFECT CHEERFUL. CALL LIGHT IN REACH. ISOLATION PRECAUTIONS MAINTAINED
--- NOTE | 2020-05-20 05:33 | NUR ---
SHIFT SUMMARY HAS BEEN RESTING QUIETLY WITH HOB ELEVATED FOR RESP COMFORT UNTIL ABOUT 0430, THEN AWAKENED FOR BLOOD DRAWS, MEDS, ETC. SMILING AT THIS TIME. WATCHING TV. ROOM AIR. NO NOTED ACUTE DISTRESS, CALL LIGHT IN REACH
[2020-05-20 05:41] LABS: Hematocrit 35.2 % (33.0-51.0); Hemoglobin 10.6 g/dL (11.5-16.0)
[2020-05-20 06:02] LABS: Albumin, Blood 2.6 g/dL (3.4-5.0); Anion Gap 6 mmol/L (6-16); Blood Urea Nitrogen 64 mg/dL (8-24); Bun/Creatinine Ratio 40.3 (12.0-20.0); CO2, Blood 26 mmol/L (21-32); Calcium, Blood 8.8 mg/dL (8.5-10.1); Chloride, Blood 112 mmol/L (98-108); Creatinine, Blood 1.59 mg/dL (0.40-1.00); Glomerular Filtration Rate 33 (60-); Glucose, Blood 122 mg/dL (70-99); Phosphorus, Blood 3.5 mg/dL (2.5-4.9); Potassium, Blood 4.9 mmol/L (3.5-5.5); Sodium, Blood 144 mmol/L (136-145)
--- NOTE | 2020-05-20 18:04 | NUR ---
PATIENT IS ALERT AND ORIENTED AND COOPERATIVE WITH CARE. PATIENT WORKED WITH PHYSICAL THERAPY TODAY. CHRONIC MANNING IN PLACE, DRAINING. NO COMPLAINTS OF PAIN. SOB WITH MOVEMENT. WILL CONTINUE TO MONITOR.
--- NOTE | 2020-05-21 05:05 | NUR ---
biostatistics director summary pt a/o x4. slept well tonight. denies pain, sob. medicated for htn this am. other vss. no acute changes.
[2020-05-21 06:07] LABS: Albumin, Blood 2.6 g/dL (3.4-5.0); Anion Gap 3 mmol/L (6-16); Blood Urea Nitrogen 59 mg/dL (8-24); Bun/Creatinine Ratio 39.3 (12.0-20.0); CO2, Blood 28 mmol/L (21-32); Calcium, Blood 8.7 mg/dL (8.5-10.1); Chloride, Blood 112 mmol/L (98-108); Glomerular Filtration Rate 36 (60-); Glucose, Blood 110 mg/dL (70-99); Magnesium, Blood 1.9 mg/dL (1.6-2.4); Potassium, Blood 4.8 mmol/L (3.5-5.5); Sodium, Blood 143 mmol/L (136-145)
[2020-05-21] MEDS ORDERED: BUME2 PO (12:15)
[2020-05-21] MEDS ORDERED: AIRDUO RESPICL1 EAC4 INH (12:22)
[2020-05-21] MEDS ORDERED: LOPE2C PO (12:23)
[2020-05-21] MEDS ORDERED: NYSTOP15 GM TOP (12:24)
[2020-05-21] MEDS ORDERED: PRED20 PO (12:25)
--- NOTE | 2020-05-21 19:17 | NUR ---
PT DISCHARGED THE PT VERBALIZED UNDERSTANDING OF THE DC INSTRUCTIONS, THE PTS PRESCRIPTIONS WERE FAXED TO [facility] EARLIER IN THE DAY, THE WAS TRANSFERED VIA WHEELCHAIR, ACCOMPANIED BY [facility], PT APPEARED TO BE BREATHING EASILY AT THE TIME OF DC, PT WAS REMINDED TO FOLLOW UP WITH HER PCP AFTER DC
== END 2020-05-21 16:34 | disposition home health service (06) | DRG 393 ==
LOC: ER 22:00 → MEDS 05-12 03:36 → PCU 05-12 03:36 → MEDS 05-14 18:46
PROVIDERS: Internal Medicine; Internal Medicine Nephrology; Physician Assistant; Student in an Organized Health Care Education/Training Program; ADMIT Family Medicine
PROC: 0DJD8ZZ Inspection of Lower Intestinal Tract, Via Natural or Artificial Opening Endoscopic (ICD-10-PCS; principal; 2020-05-13 16:30)
DX: K55.9 Vascular disorder of intestine, unspecified (principal); G93.41 Metabolic encephalopathy; T83.511A Infection and inflammatory reaction due to indwelling urethral catheter, initial encounter; J96.11 Chronic respiratory failure with hypoxia; J96.12 Chronic respiratory failure with hypercapnia; Z68.41 Body mass index [BMI] 40.0-44.9, adult; D62 Acute posthemorrhagic anemia; N17.9 Acute kidney failure, unspecified; E66.2 Morbid (severe) obesity with alveolar hypoventilation; E87.2 Acidosis; J45.901 Unspecified asthma with (acute) exacerbation; J44.1 Chronic obstructive pulmonary disease with (acute) exacerbation; Z79.02 Long term (current) use of antithrombotics/antiplatelets; I25.10 Atherosclerotic heart disease of native coronary artery without angina pectoris; I25.2 Old myocardial infarction; Z95.5 Presence of coronary angioplasty implant and graft; Z79.82 Long term (current) use of aspirin; N18.30 Chronic kidney disease, stage 3 unspecified; I12.9 Hypertensive chronic kidney disease with stage 1 through stage 4 chronic kidney disease, or unspecified chronic kidney disease; K21.9 Gastro-esophageal reflux disease without esophagitis; E89.0 Postprocedural hypothyroidism; E11.22 Type 2 diabetes mellitus with diabetic chronic kidney disease; E87.5 Hyperkalemia; E88.09 Other disorders of plasma-protein metabolism, not elsewhere classified; J44.9 Chronic obstructive pulmonary disease, unspecified; I49.5 Sick sinus syndrome; K64.4 Residual hemorrhoidal skin tags
CPT/HCPCS: 0241U; 36415; 36430; 70450; 74176; 74177; 80053; 80069; 82803; 82947; 83735; 84100; 84134; 84484; 85014; 85018; 85025; 85610; 86850; 86900; 86901; 86923; 93005; 93010; 93975; 94640; 94760; 95819; 96365; 96374; 97110; 97162; 97166; 97530; 99285-25; A9270; A9270-GY; C1751; C9113; J0696; J1940; J2270; J2405; J2543; J2704; J2920; J2930; J7030; J7512; J7799; P9016; Q9967

== ENCOUNTER → 2020-05-29 | Outpatient (CLI) | payer MEDICARE, OTHER ==
[~2020-05-29] MED LIST changes: +AIRDUO RESPICL1 EAC4 INH; +BUME2 PO; +CEPH250A PO; +ISOSORBIDE MONONITRA PO; +LOPE2C PO; +NYSTOP15 GM TOP; +PRED20 PO
[2020-05-29 20:27] LABS: Albumin, Blood 2.6 g/dL (3.4-5.0); Albumin/Globulin Ratio 0.9 (0.8-1.8); Bilirubin, Total 0.5 mg/dL (0.1-1.0); Bun/Creatinine Ratio 21.7 (12.0-20.0); Calcium, Blood 8.3 mg/dL (8.5-10.1); Creatinine, Blood 1.89 mg/dL (0.40-1.00); Globulin, Blood 2.8 g/dL (2.2-4.0); Potassium, Blood 3.9 mmol/L (3.5-5.5); Total Protein, Blood 5.4 g/dL (6.4-8.2)
== END | disposition home or self-care (01) ==
LOC: LAB 17:49
PROVIDERS: Nurse Practitioner Family
DX: N18.30 Chronic kidney disease, stage 3 unspecified (principal)
CPT/HCPCS: 80053

== ENCOUNTER → 2020-06-07 | Outpatient (CLI) | payer MEDICARE, OTHER ==
[2020-06-07 16:17] LABS: Albumin, Blood 2.8 g/dL (3.4-5.0); Bilirubin, Total 0.3 mg/dL (0.1-1.0); Calcium, Blood 9.1 mg/dL (8.5-10.1); Creatinine, Blood 1.53 mg/dL (0.40-1.00); Globulin, Blood 2.9 g/dL (2.2-4.0); Potassium, Blood 4.1 mmol/L (3.5-5.5); Total Protein, Blood 5.7 g/dL (6.4-8.2)
== END | disposition home or self-care (01) ==
LOC: LAB SHORT 13:34
PROVIDERS: Nurse Practitioner Family
DX: N18.30 Chronic kidney disease, stage 3 unspecified (principal)
CPT/HCPCS: 80053

== ENCOUNTER → 2020-09-10 | Outpatient (CLI) | payer MEDICARE, OTHER ==
[2020-09-10 18:01] LABS: BASOPHILS ABSOLUTE AUTO 0.05 K/mm3 (0.00-0.23); BASOPHILS PERCENT AUTO 1 % (0-2); EOSINOPHILS ABSOLUTE AUTO 0.32 K/mm3 (0.00-0.68); EOSINOPHILS PERCENT AUTO 3 % (0-6); Hematocrit 34.2 % (33.0-51.0); Hemoglobin 10.1 g/dL (11.5-16.0); IMMATURE GRAN ABSOLUTE AUTO 0.04 K/mm3 (0.00-0.10); IMMATURE GRAN PERCENT AUTO 0 % (0-1); LYMPHOCYTES ABSOLUTE AUTO 2.16 K/mm3 (0.84-5.20); LYMPHOCYTES PERCENT AUTO 21 % (21-46); MONOCYTES ABSOLUTE AUTO 0.37 K/mm3 (0.16-1.47); MONOCYTES PERCENT AUTO 4 % (4-13); Mean Corpuscular HGB 26.6 pg (26.0-34.0); Mean Corpuscular HGB Conc 29.5 g/dL (31.5-36.5); Mean Corpuscular Volume 90 fL (80-100); Mean Platelet Volume 11.4 fL (9.1-12.4); NEUTROPHILS ABSOLUTE AUTO 7.45 K/mm3 (1.96-9.15); NEUTROPHILS PERCENT AUTO 72 % (41-73); Platelet Count 244 K/mm3 (150-400); RDW Coefficient Variation 14.7 % (11.7-14.2); RDW Standard Deviation 48.4 fL (35.1-46.3); White Blood Cell Count 10.39 K/mm3 (4.00-11.30)
[2020-09-10 18:13] LABS: Alanine Aminotransfer (ALT/SGP 16 U/L (12-78); Albumin/Globulin Ratio 1.1 (0.8-1.8); Alk Phos 98 U/L (50-136); Anion Gap 6 mmol/L (6-16); Aspartate Aminotrans (AST/SGOT 14 U/L (12-37); Bilirubin, Total 0.2 mg/dL (0.1-1.0); Blood Urea Nitrogen 44 mg/dL (8-24); CHOL/HDL RATIO 4.2; CO2, Blood 29 mmol/L (21-32); Calcium, Blood 9.3 mg/dL (8.5-10.1); Chloride, Blood 109 mmol/L (98-108); Cholesterol 153 mg/dL (50-200); Globulin, Blood 2.7 g/dL (2.2-4.0); Glucose, Blood 115 mg/dL (70-99); HDL Cholesterol 36 mg/dL (>39); LDL/HDL RATIO 1.7; Low Density Lipoprotein Chol 61 mg/dL (0-110); Potassium, Blood 4.9 mmol/L (3.5-5.5); Sodium, Blood 144 mmol/L (136-145); Total Protein, Blood 5.7 g/dL (6.4-8.2); Triglycerides 282 mg/dL (30-160); Very Low Density Lipoprot Chol 56 mg/dL (6-32)
[2020-09-10 18:16] LABS: Albumin, Blood 3.2 g/dL (3.4-5.0); Anion Gap 7 mmol/L (6-16); Blood Urea Nitrogen 44 mg/dL (8-24); Bun/Creatinine Ratio 33.8 (12.0-20.0); CO2, Blood 29 mmol/L (21-32); Calcium, Blood 9.4 mg/dL (8.5-10.1); Chloride, Blood 109 mmol/L (98-108); Glomerular Filtration Rate 42 (60-); Glucose, Blood 117 mg/dL (70-99); Phosphorus, Blood 4.6 mg/dL (2.5-4.9); Potassium, Blood 4.8 mmol/L (3.5-5.5); Sodium, Blood 145 mmol/L (136-145)
[2020-09-10 18:20] LABS: Bun/Creatinine Ratio 34.6 (12.0-20.0); Creatinine, Blood 1.27 mg/dL (0.40-1.00); Glomerular Filtration Rate 43 (60-)
== END | disposition home or self-care (01) ==
LOC: LAB SHORT 14:12 → LAB SRC 14:12
PROVIDERS: Internal Medicine Nephrology; Nurse Practitioner Family
DX: E13.8 Other specified diabetes mellitus with unspecified complications (principal); E11.22 Type 2 diabetes mellitus with diabetic chronic kidney disease; I12.9 Hypertensive chronic kidney disease with stage 1 through stage 4 chronic kidney disease, or unspecified chronic kidney disease; N18.2 Chronic kidney disease, stage 2 (mild); D63.1 Anemia in chronic kidney disease; E03.9 Hypothyroidism, unspecified
CPT/HCPCS: 80053; 80061; 80069; 83036; 84100; 84443; 85018; 85025

== ENCOUNTER → 2020-11-12 | Outpatient (CLI) | payer MEDICARE, OTHER ==
[2020-11-12 17:51] LABS: Source, Urine Catheter
[2020-11-12 19:48] LABS: Bilirubin, Urine Neg (Neg); Blood, Urine 5+ (Neg); Glucose Qualitative, Urine Neg (Neg); Ketones, Urine Neg (Neg); Leukocyte Esterase, Urine 3+ (Neg); Nitrite, Urine Neg (Neg); Protein, Urine 2+ (Neg); Urobilinogen, Urine NORM (Normal)
[2020-11-12 20:01] LABS: Appearance, Urine Hazy (Clear); Color, Urine Pale Yellow (P-Yellow)
[2020-11-12 20:02] LABS: Amorphous Heavy (0-Heavy); Bacteria Few /hpf; Red Blood Cells, Urine 0-2 /hpf (0-2); Squamous Epithelial Cells Few /hpf (Few); Transitional Epithelial Cells Few /hpf (0-Rare)
== END | disposition home or self-care (01) ==
LOC: LAB 17:13 → LAB SHORT 17:13
PROVIDERS: Family Medicine
DX: Z46.6 Encounter for fitting and adjustment of urinary device (principal); R82.90 Unspecified abnormal findings in urine
CPT/HCPCS: 81001; 87077; 87086; 87186

== ENCOUNTER 2020-12-01 05:52 | Inpatient (IN) | payer MEDICARE, OTHER ==
[~2020-12-01] VITALS: Ht 160 cm; Wt 102.7 kg
[2020-12-01] MEDS ORDERED: FURO40 PO (06:06)
[2020-12-01] MEDS ORDERED: TRAM50 PO (06:11)
[2020-12-01 06:29] LABS: BASOPHILS ABSOLUTE AUTO 0.05 K/mm3 (0.00-0.23); BASOPHILS PERCENT AUTO 0 % (0-2); EOSINOPHILS ABSOLUTE AUTO 0.16 K/mm3 (0.00-0.68); EOSINOPHILS PERCENT AUTO 1 % (0-6); Hematocrit 30.7 % (33.0-51.0); Hemoglobin 9.3 g/dL (11.5-16.0); IMMATURE GRAN ABSOLUTE AUTO 0.13 K/mm3 (0.00-0.10); IMMATURE GRAN PERCENT AUTO 1 % (0-1); LYMPHOCYTES PERCENT AUTO 4 % (21-46); MONOCYTES ABSOLUTE AUTO 0.72 K/mm3 (0.16-1.47); MONOCYTES PERCENT AUTO 4 % (4-13); Mean Corpuscular HGB 26.5 pg (26.0-34.0); Mean Corpuscular HGB Conc 30.3 g/dL (31.5-36.5); Mean Corpuscular Volume 88 fL (80-100); Mean Platelet Volume 10.3 fL (9.1-12.4); NEUTROPHILS PERCENT AUTO 90 % (41-73); Platelet Count 249 K/mm3 (150-400); RDW Coefficient Variation 15.3 % (11.7-14.2); RDW Standard Deviation 49.1 fL (35.1-46.3); Red Blood Cell Count 3.51 M/mm3 (3.80-5.20); White Blood Cell Count 17.26 K/mm3 (4.00-11.30)
[2020-12-01 06:53] LABS: Albumin, Blood 2.8 g/dL (3.4-5.0); Albumin/Globulin Ratio 0.8 (0.8-1.8); Bilirubin, Total 0.3 mg/dL (0.1-1.0); Bun/Creatinine Ratio 31.4 (12.0-20.0); Calcium, Blood 8.6 mg/dL (8.5-10.1); Creatinine, Blood 1.59 mg/dL (0.40-1.00); Globulin, Blood 3.3 g/dL (2.2-4.0); Potassium, Blood 4.3 mmol/L (3.5-5.5); Total Protein, Blood 6.1 g/dL (6.4-8.2); Troponin I 0.065 ng/mL (0.000-0.040)
[2020-12-01 09:37] LABS: Source, Urine Catheter
[2020-12-01 09:42] LABS: Bilirubin, Urine Neg (Neg); Blood, Urine 4+ (Neg); Glucose Qualitative, Urine Neg (Neg); Ketones, Urine Neg (Neg); Leukocyte Esterase, Urine 3+ (Neg); Nitrite, Urine Neg (Neg); Protein, Urine 4+ (Neg); Urobilinogen, Urine NORM (Normal)
[2020-12-01 09:56] LABS: Appearance, Urine Hazy (Clear); Color, Urine Yellow (P-Yellow)
[2020-12-01 09:57] LABS: White Blood Cells, Urine 25-50 /hpf (0-5)
[2020-12-01 10:01] LABS: Bacteria Many /hpf; Granular Casts 0-2 /lpf (0); Renal Epithelial Few /hpf (0-Rare); Squamous Epithelial Cells Rare /hpf (Few)
--- NOTE | 2020-12-01 11:00 | NUR ---
ADMIT PT ARRIVES TO ICU 7 VIA ER BED AT 1005. PT IS AWAKE, ALERT, AND ORIENTED. PT ANSWERS QUESTIONS APPROPRIATELY. PT DENIES SOB. DOES COMPLAIN OF MILD CHEST PRESSURE, NAUSEA, AND DISCOMFORT IN HIPS. PT PLACED ON 3L O2 NC. VITAL SIGNS STABLE WITH SBP 80-100'S. IV'S SALINE LOCKED. MANNING IN PLACE WITH NO DRAINAGE NOTED IN BAG. DR REYNOSO NOTIFIED PT HAS ARRIVED TO ICU WITH NO ORDERS. DR REYNOSO STATES HE WILL COME SEE PT AND PUT IN ORDERS. WILL CONTINUE TO MONITOR.
--- NOTE | 2020-12-01 18:29 | NUR ---
SHIFT SUMMARY NO ACUTE CHANGES THIS SHIFT. PT HAS SLEPT MOST OF THE AFTERNOON. PT REMAINS ALERT AND ORIENTED WHEN AWAKE. PT COMPLAINS OF DULL CHEST PAIN THIS EVENING. PT MED PER EMAR. PT HAS BEEN HYPOTENSIVE THROUGHOUT THE SHIFT WITH SBP 90-100'S. NS INFUSING AT 100 ML/HR. MANNING IN PLACE WITH MINIMAL AMOUNT OF DARK YELLOW URINE OUTPUT NOTED. POWERGLIDE TO ISAÍAS PLACED. PT TAKING PO INTAKE WELL. PT DAUGHTER AT BEDSIDE THIS AFTERNOON. WILL CONTINUE TO MONITOR AND REPORT OFF TO ONCOMING RN.
--- NOTE | 2020-12-01 18:50 | NUR ---
CALLED DR. REYNOSO ABOUT PT HAVING MID STERNAL DISCOMFORT. 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 PT STATES SHE THINKS IT'S GI RELATED. DR. REYNOSO DOES NOT WANT TO TRY GI COCKTAIL. WILL CHECK TROPONIN NOW AND ORDERED ECHO. PT HAS RECEIVED PROTONIX THIS AFTERNOON. TRAMADOL WAS GIVEN. PRIMARY RN UPDATED WILL MONITOR.
--- NOTE | 2020-12-01 22:16 | NUR ---
SHIFT ASSESSMENT ASSUMED CARE OF PT @ 1900. REPORT RECEIVED FROM COSTA MCDONALD. PT ALERT AND ORIENTED, IN BED C/O MODERATE TO SEVERE CHEST PAIN. PREVIOUS NURSE JUST MEDICATED c TRAMADOL PER DR REYNOSO WITH NO RELIEF. DURING MY INITIAL ASSESSMENT PT BEGAN STATING THE CP IS WORSENING AND RADIATING TO HER LEFT ARM. TROPONIN RESULTS SHOWED INCREASED TROPONIN FROM 0.065- 0.131. HOSPITALIST SHAWN NOTIFIED, NEW ORDERS FOR EKG, ASA, AND SL NITRO. EKG CHANGES NOTED, MINMIAL RELIEF WITH 3 DOSES OF NITRO. NEW ORDERS FOR MORPHINE, 4MG MORPHINE GIVEN WITH MINIMAL RELIEF. PT CONTINUED TO C/O 9/10-10 CP RADIATING TO HER LEFT ARM. NITRO INFUSION STARTED PER HOSPITALIST, TITRATING PER ORDERS. LEVOPHED GTT INITIATED WELL, CURRENTLY AT 2MCG/MIN c MAP >60 IN RIGHT POWERGLIDE. PT ON 3LPM O2 VIA NC. MANNING CATH IN PLACE DRAINING YELLOW URINE. WILL CONTINUE
--- NOTE | 2020-12-02 02:31 | NUR ---
UPDATE DISCUSSED PLAN OF CARE WITH DR DAN. HEPARIN GTT INITIATED @ 13U/KG/HR. PT CONTINUES TO HAVE INTERMITTENT MODERATE TO SEVERE CHEST PAIN, TITRATING NITRO EFFECT. WILL CONTINUE TO MONITOR CLOSELY.
--- NOTE | 2020-12-02 03:51 | NUR ---
UPDATE PACEMAKER INTERROGATED. Photos I Like NOTIFIED THIS NURSE OF REPORT RESULTS. DUAL CHAMBER PACEMAKER IMPLANTED IN 05/2019. 50% ATRIAL PACED. LOW RATE OF 60BPM. NO HX OF A-FIB NO HX OF V-TACH NO REPORTED ISSUES WITH PACEMAKER
--- NOTE | 2020-12-02 06:07 | NUR ---
SHIFT SUMMARY PT REMAINS A&OX4. AFEBRILE. UNABLE TO SLEEP MUCH DURING THE NIGHT DUE TO THE REOCCURING CHEST PAIN. HEPARIN @ 13U/KG/HR, NITRO GTT CONTINUES @ 20MCG/MIN & LEVOPHED GTT @ 2MCG/MIN TO MAINTAIN A MAP >60, THIS COMBINATION SEEMS TO BE WORKING FOR PTS CONTINOUS CP ALONG WITH PRN MORPHINE. ATTEMPTING TO TITRATE MEDS DOWN AT THIS TIME. DISCUSSED THESE MEDS WITH DR DAN AND CHARGE NURSE, PLAN TO CONTINUE CURRENT TREATMENT, AWAITING ECHO THIS AM. MANNING CATH COTNINUES TO DRAIN DARK URINE. NO OTHER SIGNIFICANT CHANGES SINCE LAST NOTE. WILL CONTINUE TO MONITOR CLOSELY.
[2020-12-02 07:02] LABS: BASOPHILS ABSOLUTE AUTO 0.03 K/mm3 (0.00-0.23); BASOPHILS PERCENT AUTO 0 % (0-2); EOSINOPHILS PERCENT AUTO 0 % (0-6); Hemoglobin 7.5 g/dL (11.5-16.0); IMMATURE GRAN ABSOLUTE AUTO 0.28 K/mm3 (0.00-0.10); IMMATURE GRAN PERCENT AUTO 2 % (0-1); LYMPHOCYTES ABSOLUTE AUTO 1.07 K/mm3 (0.84-5.20); LYMPHOCYTES PERCENT AUTO 6 % (21-46); MONOCYTES ABSOLUTE AUTO 0.33 K/mm3 (0.16-1.47); MONOCYTES PERCENT AUTO 2 % (4-13); Mean Corpuscular HGB 27.1 pg (26.0-34.0); Mean Corpuscular Volume 90 fL (80-100); Mean Platelet Volume 10.7 fL (9.1-12.4); NEUTROPHILS ABSOLUTE AUTO 17.38 K/mm3 (1.96-9.15); NEUTROPHILS PERCENT AUTO 91 % (41-73); Platelet Count 233 K/mm3 (150-400); RDW Coefficient Variation 15.1 % (11.7-14.2); RDW Standard Deviation 49.9 fL (35.1-46.3); Red Blood Cell Count 2.77 M/mm3 (3.80-5.20); White Blood Cell Count 19.09 K/mm3 (4.00-11.30)
[2020-12-02 07:22] LABS: Anion Gap 5 mmol/L (6-16); Blood Urea Nitrogen 51 mg/dL (8-24); CO2, Blood 23 mmol/L (21-32); Calcium, Blood 7.6 mg/dL (8.5-10.1); Chloride, Blood 110 mmol/L (98-108); Glomerular Filtration Rate 31 (60-); Glucose, Blood 155 mg/dL (70-99); Magnesium, Blood 2.2 mg/dL (1.6-2.4); Potassium, Blood 4.8 mmol/L (3.5-5.5); Sodium, Blood 138 mmol/L (136-145); Vancomycin, Random 13.3 ug/mL
--- NOTE | 2020-12-02 07:53 | NUR ---
Care assumed 0700 Pt sleeping/easily awaken. Heparin GTT 13 UNITS/KG/HR, Levo restarted at 1 mcg/min to keep mAP > 65. A/O X 4, calm and cooperative. Denies CP/Nausea at this time. On 3 L via NC to keep spo2 > 90%, wheezing T/O except on RUL. Lin in place with yellow/clear urine in bag. NSR to paced occasionally, HR 70'S. Call light within reach.
--- NOTE | 2020-12-02 09:26 | NUR ---
Chest Pain Patient states CP has returned (01/04), not radiating anywhere but is throbbing. Nitro restarted, see flow sheet, currently 25 mcg/min. Levophed 3 mcg/min. Nitro appears to be helping CP. CP decreased to 3 to 6/10 per patient.
--- NOTE | 2020-12-02 11:15 | NUR ---
Provider visit Dr. Walsh in to see patient. Updated on patient status. Provider would like cardiology and Dr. Mendoza consulted for chest and pressor management. Dr. Gagnon called and Dr. Narayan made aware in person. Dr. Narayan would like patients H&H rechecked at 1300 and steriods to be started for wheezing. Dr. Gagnon will be in to see patient. See emar for new orders. Patient continues to have chest pain, Nitro GTT infusing see flow sheet. Levo @ 5 mcg/min.
--- NOTE | 2020-12-02 12:01 | NUR ---
Provider call - CP Dr. Gagnon called in regards to patients CP. Provider states to titrate nitro up to 200 and see if that improves pts CP. Provider will be in to see pt.
--- NOTE | 2020-12-02 12:17 | NUR ---
Provider visit Dr. Gagnon in to see patient. Pt will like to complete Angiogram if she is a candidate. Stat H&H ordered for possible transfusion if patient Hemoglobin is less than 8 per provider.
[2020-12-02 12:22] LABS: Hematocrit 25.9 % (33.0-51.0); Hemoglobin 7.6 g/dL (11.5-16.0)
--- NOTE | 2020-12-02 13:40 | NUR ---
CHEST PAIN IMPROVED Pts CP 5/10, ON NITRO GTT 200 MCG/KG and levo GTT 7 MCG/MIN. Pt has wheezing T/O and occasional non-productive cough. Starting pts transfusion. Pt constents to recieving bloods.
--- NOTE | 2020-12-02 13:56 | NUR ---
ADMIT: 12/01/20 DISCHARGE: DX: Sepsis CC: [email or web address] ADMIT: 05/12/20 DISCHARGE: 05/21/20 ADMIT: 01/22/20 DISCHARGE: 01/23/20 ADMIT: 08/04/19 DISCHARGE: DX: 08/08/19 TRANSFER TO [facility] CHEST PAIN ADMIT:10/08/2018 DISCHARGE: CHASE CALL: RESIDENCE: Home with daughter CAREGIVER: beckie Hernández, Child, Denisse Hernández, Child, DX: HTN, CKD-stage 3, Chronic UTI, CAD, see list DME: HOSPITAL BED, OXYGEN, NEBULIZER , WHEELCHAIR, see list CCM: REFERRAL 2019 HOME HEALTH: [facility] [id number] SUMMARY: 12/02/20- per chart review with Dr. Walsh, pt is having recurrent chest pain. Cardiology has been asked to be consulted along with pulmonology. Pt will be receiving a blood transfusion. No plan for d/c at this time. -sara
--- NOTE | 2020-12-02 17:51 | NUR ---
Shift Summary Pt on Levophed GTT 5 MCG/MIN, Nitro 200 mcg/min, Heparin 13 units/kg/hr, NS 100 ML/HR infusing via right wrist IV. Pt recieved 1 unit RBC but unable to titrate Levo down due to MAP < 65. Pt has CP from 10 to lowest of 5 T/O the shift, treated per emar with PRN pain medications. Guillermo in place with 300 output of yellow/clear urine. NSR with occasional pacing. Pt remains on 3 L via NC, SPO2 > 90%, wheezing T/O and SOB with activity (eating). Pt refusing to be turned and states CP is worse with movement therefore she does not want to be turned, boosted once in bed. Pts daughter (Martina) at bedside during visiting hours all questions answered and recieved call from daughter Jeanne, updated as well. Will report to oncoming shift.
--- NOTE | 2020-12-02 18:28 | NUR ---
Echo [facility] called this morning for Echo. Pt on list and echo will be completed today. Spoke to two different echo techs t/o the day to complete echo and now instrumentation technician at bedside completing echo.
--- NOTE | 2020-12-02 18:30 | NUR ---
CHEST PAIN 04/06 Dr. Narayan made aware of CP continuing to be 04/06. Provider to place new orders. Pt asked if she has taken oxycodone prior and pt states she refused because she is afraid of being addicted. Pt educated on addiction and states understanding. Pt willing to try oxycodone for pain.
--- NOTE | 2020-12-02 19:17 | NUR ---
Echocardiogram completed.
--- NOTE | 2020-12-03 | NUR ---
DESPITE REPEATED EFFORTS TO EDUCATE PT ON THE IMPORTANCE OF REPOSITIONING TO PRESERVE SKIN INTEGRITY & ASSURANCE THAT STAFF WILL NOT HURT HER IN THE TURNING PROCESS, PT CONTINUES TO ADAMANTLY REFUSE TURNS. SHE BELIEVES IT CAUSES HER CP TO RETURN. WILL CONTINUE TO EDUCATE & ENCOURAGE TURNING.
--- NOTE | 2020-12-03 02:30 | NUR ---
UPDATE: NEURO IMPROVEMENT PT MUCH MORE AWAKE NOW & APPEARS TO HAVE MORE CLARITY. STS "I THINK I WAS A LITTLE CONFUSED THIS MORNING". SHE STILL ASKS WHY SHE IS HERE & IF SHE IS ILL, HOWEVER SHE IS EASILY REORIENTED. NO C/O CP. BIGEMINY & MULTIFOCAL PVCs APPEAR TO INCREASE WHEN NITRO IS TITRATED DOWN. PT IS MAINTAINING @ 160mcg/min W/ MINIMAL ECTOPY. RT CALLED TO BEDSIDE FOR NEB Tx PT IS BECOMING MORE WHEEZY T/O W/ NONPRODUCTIVE COUGH.
[2020-12-03 05:28] LABS: BASOPHILS ABSOLUTE AUTO 0.04 K/mm3 (0.00-0.23); BASOPHILS PERCENT AUTO 0 % (0-2); EOSINOPHILS PERCENT AUTO 0 % (0-6); Hematocrit 27.7 % (33.0-51.0); Hemoglobin 8.5 g/dL (11.5-16.0); IMMATURE GRAN ABSOLUTE AUTO 0.53 K/mm3 (0.00-0.10); IMMATURE GRAN PERCENT AUTO 3 % (0-1); LYMPHOCYTES PERCENT AUTO 4 % (21-46); MONOCYTES ABSOLUTE AUTO 0.52 K/mm3 (0.16-1.47); MONOCYTES PERCENT AUTO 3 % (4-13); Mean Corpuscular HGB 27.5 pg (26.0-34.0); Mean Corpuscular HGB Conc 30.7 g/dL (31.5-36.5); Mean Corpuscular Volume 90 fL (80-100); Mean Platelet Volume 10.6 fL (9.1-12.4); NEUTROPHILS ABSOLUTE AUTO 18.45 K/mm3 (1.96-9.15); NEUTROPHILS PERCENT AUTO 91 % (41-73); Platelet Count 244 K/mm3 (150-400); RDW Coefficient Variation 15.1 % (11.7-14.2); Red Blood Cell Count 3.09 M/mm3 (3.80-5.20); White Blood Cell Count 20.24 K/mm3 (4.00-11.30)
--- NOTE | 2020-12-03 05:31 | NUR ---
SHIFT SUMMARY: PT RESTED WELL FOR THE MAJORITY OF THE NIGHT. @ TIMES SHE AWOKE & WAS CONFUSED TO WHERE SHE WAS & WHO WAS IN THE ROOM & SPEAKING TO UNSEEN STIMULI AFTER SOME TIME DISCUSSING HER PROGRESSION IN ICU, PT WAS ABLE TO BE REORIENTED & HAS SINCE BEEN A&Ox3 WHEN AWAKENED. NO C/O CP T/O THE NIGHT. LEVOPHED GTT TITRATED DOWN WHILE PT SLEPT & NITRO TITRATED DOWN PT DID NOT C/O CP. HOWEVER PARALLEL TO THE NITRO BEING DECREASED, PT BEGAN TO HAVE INC ECTOPY W/ MANY MULTIFOCAL PVCs, SUSTAINED BIGEMINY, & AT TIMES TRIGEMINY. PT ALSO BEGAN TO HAVE INC WHEEZING & COARSE LS. THIS WAS RESOLVED SOMEWHAT W/ PRN NEB Tx & INCREASING THE NITRO. @ THIS TIME NITRO GTT IS @ 200mcg/min, HEPARIN 13/u/kg/hr, & LEVOPHED ON SB. VS STABLE. WILL CONTINUE TO MONITOR UNTIL REPORT OFF TO ONCOMING RN.
[2020-12-03 06:10] LABS: Calcium, Blood 7.1 mg/dL (8.5-10.1); Creatinine, Blood 1.82 mg/dL (0.40-1.00); Potassium, Blood 5.1 mmol/L (3.5-5.5)
[2020-12-03 06:17] LABS: Troponin I 1.41 ng/mL (0.000-0.040)
--- NOTE | 2020-12-03 07:30 | NUR ---
ASSUMED CARE: PT RESTING IN BED, NITRO GTT AT 200MCG. PT EXPRESSED TO NIGHT RN THAT SHE WAS STILL HAVING CHEST PAIN, MORPHINE ADMINISTERED. NIGHT RN STATES THAT PT'S WHEEZING AND ECTOPY INCREASED WHEN NITRO WAS TURNED DOWN. NSR IN 80S ON TELE AT THIS TIME.
[2020-12-03 08:29] LABS: Vancomycin, Trough 18.2 ug/mL (5.0-10.0)
--- NOTE | 2020-12-03 08:57 | NUR ---
DR POOLE CAME TO SEE PT AND IS AWARE THAT NIGHT RN ATTEMPTED TITRATING NITOR DOWN WITH SEVER ECTOPY OCCURING AFTERWARDS. DR ALSO AWARE THAT NITRO IS AT 200MCG AND PT STATES MORPHINE WAS INEFFECTIVE. DR AWARE THAT PT'S LUNGS COARSE AND THAT LOCK MASTER REPORTED IT WORSENED WITH NITRO DECREASING. ORDER FOR DOSE OF LASIX NOW.
[2020-12-03 10:07] LABS: Hematocrit 28.5 % (33.0-51.0); Hemoglobin 8.7 g/dL (11.5-16.0)
[2020-12-03 12:28] LABS: SARS-Cov-2 (COVID-19) PCR, MMC NEGATIVE (NEGATIVE)
--- NOTE | 2020-12-03 13:39 | NUR ---
PATIENT STATES CP IS 09/04. C/O HEEL PAIN, PILLOW APPLIED UNDER LEFT FOOT. ASKED TO REPOSITION AND PT DECLINED. MADE PT AWARE OF POSSIBILITY OF RISK FOR PRESSURE SORES AND PT STILL DECLINED.
--- NOTE | 2020-12-03 13:41 | NUR ---
12/03/20- per chart review with Dr. Walsh, pt is still not having relief with her chest pain. Cardiology and pulmonlogy has consulted on pt. Her echo has shown new significant valvular disease inaddition to her underlying CAD. They have tried to tritate the pt's nitro, pt did not tolerate. No plan for d/c at this time. -sara
--- NOTE | 2020-12-03 16:50 | NUR ---
RT IN ROOM GIVING A BREATHING TX. RN WENT TO BEDSIDE AND NOTED THAT PT WAS HAVING HEAVY WHEEZING. SPOKE WITH REGISTERED NURSE HH CASE MANAGER AND ADMINISTERED LASIX DOSE 45 MINUTES EARLY. CALL TO DR GAY TO MAKE HER AWARE OF PT'S CHANGES. AGREED TO EARLY DOSE OF LASIX AND INSTRUCTED TO GIVE A DOSE OF MORPHINE WELL. STATES TO NOT TITRATE NITRO DOWN ANYMORE THIS SHIFT AND TO INSTRUCT WORKERS' COMPENSATION COMMISSIONER THAT THEY ARE NOT REQUIRED TO TITRATE FURTHER TONIGHT IF PT DOESN'S SEEM TO TOLERATE. PT'S WORK OF BREATHING SEEMS TO BE LESS AT THIS TIME. SHE IS RESTING QUIETLY, APPEARS COMFORTABLE.
--- NOTE | 2020-12-03 17:57 | NUR ---
SHIFT SUMMARY: PT NSR WITH PVCS IN 70S. NITRO TITRATED TO 60 WITH INSTRUCTIONS FOR NO FURTHER TITRATION THIS SHIFT. LASIX ADMINISTERED WITH LITTLE OUTPUT. SHARMIN JOHN AND VICTOR HUGO AWARE OF THIS AND DR GRANT HAS BEEN CONSULTED BUT HAS NOT BEEN BY TO SEE PT OF YET. HEPARIN GTT RUNNING. PT HAS BEEN REFUSING REPOSITIONS THIS SHIFT. ASSESSMENT OF SKIN ON COCCYX DONE WITH NO REDNESS OR BREAKDOWN NOTED. PT'S DAUGHTER HAS BEEN UPDATED OF PT'S STATUS.
--- NOTE | 2020-12-03 21:07 | NUR ---
ASSUMPTION OF CARE RECEIVED REPORT FROM BEREKET SKELTON AT 1909. ASSUMED CARE OF PATIENT. PATIENT AT 1909 WITH EYES CLOSED, NO S/S OF DISTRESS. 3L NC IN PLACE WITH STABLE VITALS. AT 1999 2-PERSON MAXIMUM REPOSITIONED PATIENT TO LEFT SIDE. PATIENT WAS A/P, BECAME INCREASINGLY WHEEZING WITH SATS DROPPING TO MID 80'S ON 3L NC. INCREASED O2 TO 5L NC, RT TO ROOM AND INITIATED BREATHING TREATMENT. PATIENT ANXIOUS, KEPT STATING "HELP ME SWEETY, I CAN'T BREATH". 15L NONREBREATHER PLACED, AND HEAD OF BED TO 90 DEGREES PER PATIENT'S REQUEST. AFTER A FEW MINUTES SATURATIONS INCREASED TO 95-98%. PATIENT'S ANXIETY SLOWLY DECREASING. PATIENT COMPELTELY ORIENTED, RT PLACED CPAP AND PATIENT TOLERATED VERY WELL. BY 2014 PATIENT RELAXED, BACK TO BASELINE, 02 SATS ABOVE 95%. NOTIFIED DR. JOHN OF PATIENT'S EPISODE, RECEIVED ORDERS THAT IF PATIENT TOLERATES CPAP OR BIPAP COULD BE INITIATED. PATIENT'S DAUGHTER ZENY NOTIFIED PER PATIENT'S REQUEST ALSO. AT THIS TIME PATIENT CONTINUES TO TOLERATE CPAP, SATS ABOVE 95%, PATIENT WITH EYES CLOSED WITH NO S/S OF DISTRESS. WILL CONTINUE TO MONITOR. CALL LIGHT IN REACH.
[2020-12-03 21:36] LABS: Hematocrit 29.8 % (33.0-51.0); Hemoglobin 9.3 g/dL (11.5-16.0)
--- NOTE | 2020-12-03 22:23 | NUR ---
HS MEDICATIONS PATIENT DECLINED MEDICATIONS AT 2129 AND WANTED TO ATTEMPT LATER. AT 2214, PATIENT ASLEEP, COMFORTABLE WITH NO S/S OF DISTRESS. CONTINUES TO TOLERATE CPAP WITH STABLE VITALS. WILL ATTEMPT HS MEDICATIONS WHEN PATIENT IS AWAKE.
--- NOTE | 2020-12-04 | NUR ---
REASSESSMENT NO ACUTE CHANGES FROM PREVIOUS ASSESSMENT. PATIENT WITH EYES CLOSED, NO S/S OF DISTRESS. CPAP WITH 5L 02 BLEED IN. NITRO AT 60MCG, HEPARIN AT 13UNIT/KG. VITALS STABLE. CALL LIGHT IN REACH.
[2020-12-04 03:35] LABS: BASOPHILS ABSOLUTE AUTO 0.03 K/mm3 (0.00-0.23); BASOPHILS PERCENT AUTO 0 % (0-2); EOSINOPHILS PERCENT AUTO 0 % (0-6); Hematocrit 29.6 % (33.0-51.0); Hemoglobin 9.2 g/dL (11.5-16.0); IMMATURE GRAN ABSOLUTE AUTO 0.63 K/mm3 (0.00-0.10); IMMATURE GRAN PERCENT AUTO 3 % (0-1); LYMPHOCYTES ABSOLUTE AUTO 0.99 K/mm3 (0.84-5.20); LYMPHOCYTES PERCENT AUTO 4 % (21-46); MONOCYTES ABSOLUTE AUTO 0.76 K/mm3 (0.16-1.47); MONOCYTES PERCENT AUTO 3 % (4-13); Mean Corpuscular HGB 27.5 pg (26.0-34.0); Mean Corpuscular HGB Conc 31.1 g/dL (31.5-36.5); Mean Corpuscular Volume 89 fL (80-100); Mean Platelet Volume 10.8 fL (9.1-12.4); NEUTROPHILS ABSOLUTE AUTO 22.76 K/mm3 (1.96-9.15); NEUTROPHILS PERCENT AUTO 91 % (41-73); NRBC ABSOLUTE 0.03 K/mm3 (0.00-0.02); NRBC Auto 0.1 /100 WBC (0.0-0.2); Platelet Count 319 K/mm3 (150-400); RDW Coefficient Variation 15.2 % (11.7-14.2); Red Blood Cell Count 3.34 M/mm3 (3.80-5.20); White Blood Cell Count 25.17 K/mm3 (4.00-11.30)
[2020-12-04 03:55] LABS: Albumin, Blood 2.6 g/dL (3.4-5.0); Anion Gap 5 mmol/L (6-16); Blood Urea Nitrogen 58 mg/dL (8-24); CO2, Blood 22 mmol/L (21-32); Calcium, Blood 7.6 mg/dL (8.5-10.1); Chloride, Blood 101 mmol/L (98-108); Creatinine, Blood 2.23 mg/dL (0.40-1.00); Glomerular Filtration Rate 22 (60-); Glucose, Blood 100 mg/dL (70-99); Phosphorus, Blood 5.7 mg/dL (2.5-4.9); Potassium, Blood 5.7 mmol/L (3.5-5.5); Sodium, Blood 128 mmol/L (136-145)
--- NOTE | 2020-12-04 04:00 | NUR ---
REASSESSMENT NO ACUTE CHANGES FROM PREVIOUS ASSESSMENT. PATIENT CONTINUES TO TOLERATE CPAP WITH 5L 02 BLEED IN. VITALS STABLE. NITRO AND HEPARIN CONTINUE AT SAME RATES. CALL LIGHT IN REACH.
--- NOTE | 2020-12-04 06:33 | NUR ---
SHIFT SUMMARY PATIENT WITH SOB, WHEEZING AND ANXIETY AT START OF SHIFT PREVIOUSLY CHARTED. PATIENT AGREED TO TRY CPAP, REQUIRED A 5L02 BLEED IN. PATIENT TOLERATED CPAP THROUGH NIGHT, BUT BECAME EXTREMELY SHORT OF BREATH WITH ANY SHIFT OF HIPS OR LISS TURNS IN BED. VITALS WERE STABLE, NITRO AND HEPARIN CONTINUE WITH RATES UNCHANGED. AT 0545 PATIENT AWOKE, A/O, FELT REALLY GOOD AND REMOVED CPAP BY HERSELF. RN ENTERED ROOM TO PLACE NC, PATIENT ORIENTED, BEGAN TO TAKE THYROID PILL AND THEN BECAME SHORT OF BREATH AND BECAME ANXIOUS. PATIENT UNABLE TO FOLLOW DIRECTION KEPT STATING "HELP ME HONEY". RN ATTEMPTED TO PLACE CPAP AND PATIENT PUSHING MASK AWAY AND PULLING AT LINES. 2 RN'S TO BEDSIDE TO PROVIDE VERBAL REASSURANCE AND PLACED CPAP, REPOSITIONED PATIENT FOR COMFORT WITHIN A COUPLE MINUTES PATIENT BEGAN CALMING DOWN AND WAS PRAYING. KEEPING MASK IN PLACE, SATS ABOVE 90%. DR. GRANT TO BEDSIDE, REDREW POTASSIUM TO VERIFY RESULT, CHANGED ORDERS FOR DIURETICS. I/O'S REPORTED AND ALSO REPORTED PATIENT'S INTOLERANCE TO REMOVE CPAP AT THIS TIME. WILL REPORT CURRENT POTASSIUM LEVEL ONCE IT IS RESULTED TO DR. GRANT AND AWAIT FURTHER INSTRUCTIONS. CONTINUING TO MONITOR AND WILL REPORT TO ONCOMING RN.
--- NOTE | 2020-12-04 06:49 | NUR ---
POTASSIUM RESULT REPORTED POTASSIUM TO DR. GRANT, RECEIVED NEW ORDERS.
[2020-12-04 09:06] LABS: Base Excess Venous -12.1 mmol/L; Bicarbonate Venous 14.8 mmol/L (24.0-30.0); PCO2 Venous 57.2 mmHg (38-42); PO2 Venous 38.3 mmHg (38-42)
--- NOTE | 2020-12-04 10:00 | NUR ---
PT 3 DAUGHTER HERE TO SEE PT AND TO SPEAK WITH DR. JOHN AND PALLIATIVE CARE. PT MADE COMFORT CARE STATUS.
--- NOTE | 2020-12-04 10:05 | NUR ---
[id number]: PT UTILIZED THE CALL SYSTEM REQUESTING "PAIN MEDICINE." PT REPORTS 10/10 HIP PAIN, BUT DENIES CP. PT HAD REMOVED THE CPAP MASK. SHE APPEARED VERY AGITATED AND RESTLESS-PULLING ON IV LINES & ECG LEADS. RESPIRATIONS AUDIBLY WZ. ECG INTERMITTENTLY PACED AND SBP AT THAT TIME TRENDING 110'S. NITRO DRIP TITRATED DOWN TO 30 MCG/MIN. PT MED WITH MORPHINE 4 MG IVP X 1. SHE DID SETTLE AND WAS ABLE TO TOLERATE NASAL CANULA BRIEFLY TO TAKE PO MEDS-SEE EMAR. MANNING TO BSD WITH MINIMAL URINE OUTPUT. SCHEDULED BUMEX GIVEN.PT DENIED NAUSEA, BUT REFUSED ORAL CARE AND ALSO REFUSED BREAKFAST. PT NOTED 15 MINUTES AFTER PO MEDS TAKEN- TO BE CONFUSED. INCREASED WOB NOTED. PT TWITCHING AND RESPIRATIONS SHALLOW. LUNGS DIMINISHED AND TIGHT THROUGH OUT. PT BECAME QUITE SOMULENT- BIPAP PLACED. UPDATED TO PT DETERIORATING CONDITION. SBP TRENDING 70'S AND MAP 40'S-NITRO DRIP OFF AT 0745. VBG DONE AND LEVOPHED DRIP INITIATED @ 2 MCG/MIN. DR. LOPEZ UPDATED TO CURRENT VS AND DETERIORATING CONDITION-PALLIATIVE CARE CONSULTED. PT FAMILY CONTACTED AND UPDATED. PT FAMILY TO COME IN AND SPEAK WITH AND PALLIATIVE CARE REGARDING POSSIBLE COMFORT CARE.
--- NOTE | 2020-12-04 10:55 | NUR ---
Prior to visiting with Pt family meeting took place with this Palliative Care RN, Dr Narayan, Pt's daughters Denisse Mack, and Summer. Dr Narayan provides update and discussed Pt's prognosis with family. Goals of care discussed with family. Family reports they would like to pursue comfort care. Educated on comfort care philosophy. Family tearful throughout visit and validated concerns. Pt resting in bed with her eyes closed and is wearing BIPAP. Pt is non responsive at this time. Provided comfort care blanket and offered therapeutic listening to daughter. Daughter reports a couple more family members are due to arrive before D/C of BIPAP. Family agreeable for rn or lpn visit. Order comfort care cart. Spoke with Philosophy Lecturer Oz and discussed case. Oz will make visit. Palliative Care will F/U for symptom management and supportive visits.
--- NOTE | 2020-12-04 11:15 | NUR ---
PT MED WITH MORPHINE 4 MG IVP X 1 AND ATIVAN 1 MG IVP X1 FOR AIR HUNGER, THEN BIPAP MASK REMOVED. ALL IV DRIPS DISCONTINUED. PT DAUGHTER LESLY AT THE BEDSIDE.
--- NOTE | 2020-12-04 11:46 | NUR ---
Upon receiving a request for [employer] services, I visit patient. Daughter Martina is bedside and tells me about the closeness of the family, mainly the patient and the three daughters. She expalins about the long jerome patient has had with health issues and that even though the current status of the is expected it is still very challenging to work process. I provide therapeutic listening and prayer. Martina states that the prayer was calming and helpful. I continue to remain available to patient and family.
--- NOTE | 2020-12-04 12:24 | NUR ---
PT -FAMILY MEMBERS AT BEDSIDE.
--- NOTE | 2020-12-04 12:43 | NUR ---
Spiritual care visit conducted. Shortly after the patient expires, I visit with patient's daughters and provide therapeutic listening, grief support and prayer. Family responds well and shows signs of being comforted.
== END 2020-12-04 12:24 | DRG 871 ==
LOC: ER 05:52 → ICUW 09:10 → ICUE 09:10
PROVIDERS: Emergency Medicine; Internal Medicine Critical Care Medicine; Internal Medicine Interventional Cardiology; ADMIT Internal Medicine
PROC: 3E033XZ Introduction of Vasopressor into Peripheral Vein, Percutaneous Approach (ICD-10-PCS; principal; 2020-12-01)
PROC: 30233N1 Transfusion of Nonautologous Red Blood Cells into Peripheral Vein, Percutaneous Approach (ICD-10-PCS; 2020-12-01)
PROC: 5A09457 Assistance with Respiratory Ventilation, 24-96 Consecutive Hours, Continuous Positive Airway Pressure (ICD-10-PCS; 2020-12-01)
DX: A41.51 Sepsis due to Escherichia coli [E. coli] (principal); R65.21 Severe sepsis with septic shock; I21.4 Non-ST elevation (NSTEMI) myocardial infarction; J96.21 Acute and chronic respiratory failure with hypoxia; J96.22 Acute and chronic respiratory failure with hypercapnia; Z68.41 Body mass index [BMI] 40.0-44.9, adult; N39.0 Urinary tract infection, site not specified; J44.1 Chronic obstructive pulmonary disease with (acute) exacerbation; N25.81 Secondary hyperparathyroidism of renal origin; I13.0 Hypertensive heart and chronic kidney disease with heart failure and stage 1 through stage 4 chronic kidney disease, or unspecified chronic kidney disease; E87.1 Hypo-osmolality and hyponatremia; I50.32 Chronic diastolic (congestive) heart failure; N17.9 Acute kidney failure, unspecified; E87.4 Mixed disorder of acid-base balance; Z20.822 Contact with and (suspected) exposure to COVID-19; Z66 Do not resuscitate; R57.0 Cardiogenic shock; Z51.5 Encounter for palliative care; I35.0 Nonrheumatic aortic (valve) stenosis; I25.10 Atherosclerotic heart disease of native coronary artery without angina pectoris; I49.5 Sick sinus syndrome; E03.9 Hypothyroidism, unspecified; E87.5 Hyperkalemia; N18.30 Chronic kidney disease, stage 3 unspecified; D63.1 Anemia in chronic kidney disease; E11.22 Type 2 diabetes mellitus with diabetic chronic kidney disease; E66.01 Morbid (severe) obesity due to excess calories; G47.33 Obstructive sleep apnea (adult) (pediatric); I25.2 Old myocardial infarction; Z87.442 Personal history of urinary calculi; Z95.0 Presence of cardiac pacemaker; Z90.89 Acquired absence of other organs; Z90.710 Acquired absence of both cervix and uterus; Z87.891 Personal history of nicotine dependence; Z98.41 Cataract extraction status, right eye; Z98.42 Cataract extraction status, left eye; Z98.890 Other specified postprocedural states; Z88.2 Allergy status to sulfonamides; Z88.8 Allergy status to other drugs, medicaments and biological substances; Z91.018 Allergy to other foods; Z79.899 Other long term (current) drug therapy
CPT/HCPCS: 36415; 36430; 51702; 51798; 71045; 76770; 80048; 80053; 80069; 80202; 81001; 82533; 82803; 83605; 83735; 84132; 84484; 85014; 85018; 85025; 85730; 86850; 86900; 86901; 86923; 87040; 87077; 87086; 87186; 93005; 93010; 93306; 94640; 94660; 96365-59; 96375-59; 96376-59; 99285-25; A9270; C1751; J0692; J0696; J1644; J1940; J2060; J2270; J2405; J2920; J2930; J3010; J3370; J7030; J7050; J7060; P9016; U0004